=== PATIENT | male | born 1960 | race Caucasian/White ===

== ENCOUNTER → 2018-12-09 15:37 | Outpatient (CLI) | payer OTHER, SELFPAY ==
[2016-10-01 08:07] VITALS: BMI 32.1
--- NOTE | 2018-12-09 | COLBX_PTH ---
PATIENT: RICHARD LI LOC: [facility] U#:[id number] AGE/SX: 65/M ROOM: RE12/09/[address]: Dr. Trevor London MD : 1960 BED: DIS: SPEC #: [id number] RECD: 12/09/18 15:32 STATUS: WILD DESIREE #: [id number] HEMA: 12/09/18 00:[address]: Trevor London DEPT: SURGICAL PATHOLOGY RECD BY: Taj Michelle ENTERED: 12/12/18 13:51 SP TYPE: COLON BX OTHR DR: Dr. Mason Lunsford MD Tissues: A - Sigmoid colon biopsy B - Transverse colon Procedures: Surgery Specimen Level IV HEADER OPERATION: Colonoscopy with biopsy and polypectomy PRE-OP DIAGNOSIS: Screening / polyp TISSUE SUBMITTED: A - Distal sigmoid polyp, rule out adenoma, B - Transverse colon polyp, rule out adenoma MICROSCOPIC DIAGNOSIS A. Distal sigmoid colon polyp, biopsy: Tubular adenoma. B. Transverse colon polyp, biopsy: Tubular adenoma. AM:gavin 12/13/18 MICROSCOPIC DESCRIPTION Slides are reviewed. GROSS DESCRIPTION A - Received in fixative is one container labeled with the patient's name and designated distal sigmoid polyp. The specimen consists of multiple irregular fragments of navas soft tissue mixed with fecal material that in aggregate measure 1 x 0.2 x 0.1 cm. The specimen is totally submitted in one cassette. B - Received in fixative is one container labeled with the patient's name and designated transverse colon polyp. The specimen consists of multiple irregular fragments of light navas soft tissue that in aggregate measure 0.5 x 0.5 x 0.1 cm. The specimen is totally submitted in one cassette. / SJ:gavin 12/12/18 TC:5 CPT: 90947 x2
== END ==
PROVIDERS: Family Provider Family Medicine; PCP Family Medicine; Referring Provider Internal Medicine Gastroenterology; Visit Provider Internal Medicine Gastroenterology
DX: Z12.11 Encounter for screening for malignant neoplasm of colon (principal); K63.5 Polyp of colon
CPT/HCPCS: 88305

== ENCOUNTER → 2021-03-03 12:09 | Outpatient (CLI) | payer OTHER, SELFPAY ==
[2021-03-03 15:40] LABS: ALB/GLOB Ratio 1.1 RATIO (0.9-2.4); AST(SGOT) 27 U/L (15-37); Alanine Aminotransfer ALT/SGPT 39 U/L (16-61); Albumin, Serum 3.8 g/dL (3.2-5.0); Alkaline Phosphatase 80 U/L (45-117); Anion Gap 6 (5-15); BUN 13 mg/dL (7-18); BUN/Creat Ratio 14.4 RATIO (10-20); Chloride 107 mmol/L (98-107); Cholesterol 217 mg/dL (200); EST Glomerular Filtration Rate 91 mL/min (>60); Est Glom Filt Rate - Afr Amer 110 mL/min (>60); Globulin 3.4 g/dL (2.2-4.2); Glucose 113 mg/dL (74-106); High Density Lipoprotein 68 mg/dL; Potassium 4.5 mmol/L (3.5-5.1); Protein, Total 7.2 g/dL (6.4-8.2); Sodium Level 138 mmol/L (136-145); Triglycerides 120 mg/dL; Very Low Density Lipoprotein 24 mg/dL (5-40)
== END ==
PROVIDERS: PCP Family Medicine; Visit Provider Family Medicine
DX: I10 Essential (primary) hypertension (principal); R73.02 Impaired glucose tolerance (oral); E78.5 Hyperlipidemia, unspecified
CPT/HCPCS: 36415; 80053; 80061; 83036

== ENCOUNTER → 2021-06-09 10:29 | Outpatient (CLI) | payer OTHER, SELFPAY | PROVIDERS: PCP Family Medicine; Referring Provider Family Medicine; Visit Provider Family Medicine | DX: M10.9 Gout, unspecified (principal) | CPT/HCPCS: 36415; 84550 ==

== ENCOUNTER → 2021-08-27 12:14 | Outpatient (CLI) | payer OTHER, SELFPAY ==
[2021-08-27 15:33] LABS: Absolute Lymphocyte Count 1.52 X10^3/uL (0.83-4.51); Absolute Neutrophil Count 2.9 X10^3/uL (2.0-7.7); Basophil# 0.03 X10^3/uL; Basophil% 0.6 % (0-1); Eosinophil# 0.09 X10^3/uL; Eosinophils% 1.8 % (0-5); Hematocrit 39.4 % (40-54); Lymphocyte # 1.52 X10^3/ul (0.83-4.51); Lymphocyte % 29.9 % (19-41); Mean Corpuscular Hgb 31.4 pg (27.0-32.0); Mean Corpuscular Volume 95.2 fL (80-94); Mean Platelet Vol. 8.9 fl (6.2-12.0); Monocyte# 0.54 X10^3/uL; Monocyte% 10.6 % (0-10); NRBC Flagged by Analyzer 0 % (0-5); Neutrophil # 2.87 X10^3/uL (2.7-7.7); Neutrophil % 56.3 % (47-70); Platelet Count 271 K/mm3 (150-450); RBC Distribution Width CV 12.3 % (11.6-14.6); RBC Distribution Width SD 43.1 fl (35.1-43.9); Red Blood Count 4.14 M/mm3 (4.6-6.2); White Blood Count 5.1 K/mm3 (4.4-11.0)
[2021-08-27 15:47] LABS: ALB/GLOB Ratio 1.1 RATIO (0.9-2.4); AST(SGOT) 26 U/L (15-37); Alanine Aminotransfer ALT/SGPT 45 U/L (16-61); Albumin, Serum 3.7 g/dL (3.2-5.0); Alkaline Phosphatase 79 U/L (45-117); Anion Gap 4 (5-15); BUN 14 mg/dL (7-18); BUN/Creat Ratio 17.3 RATIO (10-20); Chloride 104 mmol/L (98-107); Cholesterol 214 mg/dL (200); Creatinine, Serum 0.81 mg/dL (0.70-1.30); EST Glomerular Filtration Rate 103 mL/min (>60); Est Glom Filt Rate - Afr Amer 125 mL/min (>60); Globulin 3.5 g/dL (2.2-4.2); Glucose 108 mg/dL (74-106); High Density Lipoprotein 58 mg/dL; PSA,Total - Annual Screen 3.07 ng/mL (0.00-4.00); Protein, Total 7.2 g/dL (6.4-8.2); Sodium Level 136 mmol/L (136-145); Triglycerides 153 mg/dL; Uric Acid 6.3 mg/dL (3.5-7.2); Very Low Density Lipoprotein 31 mg/dL (5-40)
[2021-08-27 17:05] LABS: Hemoglobin A1c 5.8 % (3.8-5.6)
== END ==
PROVIDERS: PCP Family Medicine; Referring Provider Family Medicine; Visit Provider Family Medicine
DX: Z00.00 Encounter for general adult medical examination without abnormal findings (principal); M10.9 Gout, unspecified; I10 Essential (primary) hypertension; E78.5 Hyperlipidemia, unspecified; R73.02 Impaired glucose tolerance (oral); Z12.5 Encounter for screening for malignant neoplasm of prostate
CPT/HCPCS: 36415; 80053; 80061; 83036; 84153; 84550; 85025; G0103

== ENCOUNTER → 2024-03-29 | Outpatient (CLI) | payer OTHER, SELFPAY ==
[2024-03-29 15:38] LABS: Absolute Lymphocyte Count 1.93 X10^3/uL (0.83-4.51); Absolute Neutrophil Count 2.2 X10^3/uL (2.0-7.7); Basophil# 0.04 X10^3/uL; Basophil% 0.8 % (0-1); Eosinophil# 0.14 X10^3/uL; Eosinophils% 2.9 % (0-5); Hematocrit 42.6 % (40-54); Hemoglobin 13.7 g/dL (13.0-16.5); Lymphocyte # 1.93 X10^3/ul (0.83-4.51); Lymphocyte % 39.3 % (19-41); Mean Corp Hgb Conc 32.2 g/dL (32-36); Mean Corpuscular Hgb 31.3 pg (27.0-32.0); Mean Corpuscular Volume 97.3 fL (80-94); Monocyte# 0.58 X10^3/uL; Monocyte% 11.8 % (0-10); NRBC Flagged by Analyzer 0 % (0-5); Neutrophil # 2.19 X10^3/uL (2.7-7.7); Neutrophil % 44.6 % (47-70); Platelet Count 252 K/mm3 (150-450); RBC Distribution Width CV 12.3 % (11.6-14.6); RBC Distribution Width SD 44.5 fl (35.1-43.9); Red Blood Count 4.38 M/mm3 (4.6-6.2); White Blood Count 4.9 K/mm3 (4.4-11.0)
[2024-03-29 16:36] LABS: Cholesterol 275 mg/dL (200); High Density Lipoprotein 51 mg/dL; PSA,Total - Annual Screen 2.43 ng/mL (0.00-4.00); Triglycerides 235 mg/dL; Very Low Density Lipoprotein 47 mg/dL (5-40)
== END | disposition home or self-care (01) ==
LOC: MTLAB 11:34
PROVIDERS: PCP Family Medicine; Referring Provider Family Medicine; Visit Provider Family Medicine
DX: Z12.11 Encounter for screening for malignant neoplasm of colon (principal); I10 Essential (primary) hypertension; E78.00 Pure hypercholesterolemia, unspecified; Z13.0 Encounter for screening for diseases of the blood and blood-forming organs and certain disorders involving the immune mechanism; Z12.5 Encounter for screening for malignant neoplasm of prostate
CPT/HCPCS: 36415; 80061; 84153; 85025; G0103

== ENCOUNTER 2025-02-14 20:21 | Observation (INO) | payer OTHER, SELFPAY ==
[2025-02-14] VITALS (8 sets, daily range): BP systolic 136–191; BP diastolic 71–99; PULSE 71–86; RESP 16–18; TEMP 36.6–36.7; O2SAT 94–99; BMI 33.8; BMI 34.4
--- NOTE | 2025-02-14 20:26 | CT_ITS ---
PROCEDURE: STROKE BRAIN/HEAD WITHOUT CONT 02/14/2025 REASON FOR EXAM: NEURO DEFICIT, ACUTE, STROKE SUSPECTED TECHNIQUE: Head CT without intravenous contrast. Coronal and Sagittal reconstruction series were provided. One or more dose reduction techniques were used (e.g., Automated exposure control, adjustment of the mA and/or kV according to patient size, use of iterative reconstruction technique. COMPARISON: None FINDINGS: * ACUTE: No acute infarct or hemorrhage. No mass effect or herniation. * BRAIN PARENCHYMA: Signal intensities are within normal limits for age. * VENTRICLES/EXTRA-AXIAL SPACES: No hydrocephalus or extra-axial fluid collections. * EXTRACRANIAL STRUCTURES: Visualized osseous structures are normal. Soft tissues are normal. Left maxillary sinus mucous retention cyst. Mild paranasal sinus mucosal thickening. CT/STROKE Brain/Head without Cont IMPRESSION: No acute intracranial abnormality. Reading [facility]
--- NOTE | 2025-02-14 20:26 | EKG12_ITS ---
Test Reason : NEURO Blood Pressure : */* mmHG Vent. Rate : 75 BPM Atrial Rate : 75 BPM P-R Int : 154 ms QRS Dur : 104 ms QT Int : 396 ms P-R-T Axes : 45 -20 18 degrees QTcB Int : 442 ms Normal sinus rhythm Moderate voltage criteria for LVH, may be normal variant ( R in aVL , Cromwell product ) Borderline ECG Confirmed by Ludwig Sanford ([id number]), make up editor NAOMI KOEHLER ([id number]) on 02/16/2025 12:15:09 PM Referred By: Confirmed By: Ludwig Sanford
--- NOTE | 2025-02-14 20:42 | CT_ITS ---
PROCEDURE: STROKE CTA HEAD AND NECK W/CON 02/14/2025 REASON FOR EXAM: NEURO DEFICIT, ACUTE, STROKE SUSPECTED TECHNIQUE: CTA imaging of the head and neck from the aortic arch to the skull vertex with out contrast and with intravenous contrast. Multiplanar and multisequence images were obtained. CONTRAST: Omnipaque 350 VOLUME: 100 mL Not Provided Gauge IV One or more dose reduction techniques were used (e.g., Automated exposure control, adjustment of the mA and/or kV according to patient size, use of iterative reconstruction technique). COMPARISON: None FINDINGS: Aortic Arch: Normal size and branching pattern. No significant atherosclerotic plaque. Brachiocephalic and Subclavians: Mild atherosclerotic plaque without significant stenosis. RIGHT Carotid: Right CCA: Unremarkable. Right ICA: Mild calcified and soft plaque. Maximum stenosis (NASCET): <10 % Right ECA: Unremarkable. LEFT Carotid: Left CCA: Unremarkable. Left ICA: Mild calcified and soft plaque. Maximum stenosis (NASCET): <10 % Left ECA: Unremarkable. Vertebrals: Codominant. Arise from the subclavians. Both vertebrals form the basilar. There appears to be a connection between the left supraclinoid ICA and basilar artery (series 4, image 428), compatible with a persistent trigeminal artery. RIGHT Vertebral: Unremarkable. LEFT Vertebral: Unremarkable. Anatomy: [place] of [place] anatomy is normal. Aneurysm or avm: No intracranial aneurysms or large vascular malformations are identified. Anterior cerebral arteries: Unremarkable: Middle cerebral arteries: Mild atherosclerotic calcification of the carotid siphons, without hemodynamically significant stenosis. Basilar artery: Unremarkable. Posterior cerebral arteries: Unremarkable. Other major branches of the posterior circulation: Unremarkable. Major venous structures: Unremarkable. Other findings: Neck: No lymphadenopathy. Lungs: Lung apices are clear. Bones: Mild degenerative changes of the cervical spine. CT/STROKE CTA Head AND Neck W/Con IMPRESSION: Scattered atherosclerotic calcification without hemodynamically significant socrates nosis. No evidence of acute occlusion or thrombosis. 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 Reading Location: [facility]
[2025-02-14 20:57] LABS: Absolute Lymphocyte Count 2.09 X10^3/uL (0.83-4.51); Absolute Neutrophil Count 2.7 X10^3/uL (2.0-7.7); Basophil# 0.04 X10^3/uL; Basophil% 0.7 % (0-1); Eosinophil# 0.12 X10^3/uL; Eosinophils% 2.1 % (0-5); Hematocrit 42.2 % (40-54); Hemoglobin 14.5 g/dL (13.0-16.5); Lymphocyte # 2.09 X10^3/ul (0.83-4.51); Lymphocyte % 37.3 % (19-41); Mean Corp Hgb Conc 34.4 g/dL (32-36); Mean Corpuscular Hgb 32.2 pg (27.0-32.0); Mean Corpuscular Volume 93.8 fL (80-94); Mean Platelet Vol. 8.4 fl (6.2-12.0); Monocyte# 0.58 X10^3/uL; Monocyte% 10.4 % (0-10); NRBC Flagged by Analyzer 0 % (0-5); Neutrophil # 2.73 X10^3/uL (2.7-7.7); Neutrophil % 48.8 % (47-70); Platelet Count 277 K/mm3 (150-450); RBC Distribution Width CV 12.5 % (11.6-14.6); RBC Distribution Width SD 43.1 fl (35.1-43.9); White Blood Count 5.6 K/mm3 (4.4-11.0)
[2025-02-14 21:06] LABS: International Normalized Ratio 0.9; Partial Thromboplast Time 24.3 Seconds (24.1-36.2); Prothrombin Time (Protime)PT. 12.3 SECONDS (11.7-14.9)
--- NOTE | 2025-02-14 21:10 | ED.VIS.STROK ---
HPI History of Present Illness Chief Complaint: Neuro S/Sx Detail of Chief Complaint: Left face and left hand paresthesias Informant: patient Narrative Narrative: Patient presents with left face and left hand paresthesias. Symptoms started approximately noon with numbness and tingling to the left side of his face. Patient was in [place] and remembers getting gas and added an additive to the gas and then put a mint in his mouth but is not sure if that had anything to do with it. 2 hours later he developed some numbness and tingling in his fingertips of his left hand. He denies difficulty with speech or vision. He denies weakness. He actually drove home. Patient states that he developed an upper respiratory infection a week ago and continues to have a slight cough. Denies significant headache. Denies head injuries. He is not anticoagulated. [facility] Medical History Gout Knee pain Hypertension Home Medications ?Medication ?Instructions ?Recorded ?Last Taken ?Type rosuvastatin 20 mg tablet (Crestor) 20 mg PO DAILY 09/22/16 Unknown History amlodipine 5 mg tablet 5 mg PO QDAY 07/07/24 Unknown History olmesartan 20 mg tablet 20 mg PO QDAY 07/07/24 Unknown History allopurinol 100 mg tablet 100 mg PO QDAY 11/01/24 Unknown History etodolac 500 mg tablet 500 mg PO BID #40 tabs 11/01/24 Unknown Rx Allergy/AdvReac Type Severity Reaction Status Date / Time No Known Allergies Allergy Verified 02/14/25 20:24 Surgical History History of hernia surgery Social History Smoking Status: Never smoker alcohol intake: current ROS ROS ED Review of Systems ROS Unobtainable: other Constitutional Constitutional ED: Reports lethargy; Denies chills, fever(s), sweats or weight loss Eyes Eyes: Denies blurry vision, change in vision or diplopia ENT ENT ED: Denies rhinorrhea or sore throat Cardiovascular Cardiovascular: Denies chest pain, orthopnea or racing heartbeat Respiratory/Chest Respiratory/Chest: Denies cough, dyspnea, dyspnea on exertion, orthopnea or sputum Gastrointestinal Gastrointestinal: Denies abdominal pain, diarrhea, nausea or vomiting Genitourinary Genitourinary ED: Denies dysuria, hematuria or urinary frequency Musculoskeletal Musculoskeletal: Denies arthralgias, back pain, myalgias or neck pain Integumentary Denies abscess, Abrasions or rash Neurologic Neurologic: Reports paresthesias; Denies headache(s) or weakness Psychiatric Psychiatric: Denies anxiety, depression or suicidal thoughts Endocrine Endocrinology: Denies polydipsia, polyphagia or polyuria Hematologic/Lymphatic Hematologic/Lymphatic: Denies easy bleeding, easy bruising or lymphadenopathy Allergic/Immunologic Allergic/Immunologic ED: Denies mouth swelling, tongue swelling or urticaria EXAM Physical Exam Const Vital Signs: 02/14/25 20:22 02/14/25 20:32 02/14/25 20:32 Temperature 98.0 F Temperature Source Temporal Pulse Rate 81 79 Respiratory Rate 18 16 Blood Pressure 191/89 H 185/93 H Blood Pressure Mean 123 123 Pulse Ox 97 95 Oxygen Delivery Method Room Air Room Air Room Air 02/14/25 20:32 02/14/25 21:05 Temperature Temperature Source Pulse Rate 81 86 Respiratory Rate 16 18 Blood Pressure 185/93 H 167/99 H Blood Pressure Mean 123 121 Pulse Ox 94 98 Oxygen Delivery Method Room Air Room Air Positive well nourished and well developed General Appearance ED: well developed and NAD HEENT Reports TM's clear and moist mucous membranes normocephalic and atraumatic; Negative for trauma or tenderness Tympanic Membrane ED: Yes TM's clear Eyes PERRL and EOMs intact bilaterally General Eye ED: Negative for pale conjunctiva or scleral icterus Neck no lymphadenopathy, supple and no JVD General: Negative for tenderness Chest Wall inspection of chest normal and palpation of chest normal Chest: Negative for tenderness Resp normal respiratory effort and clear to auscultation bilaterally Effort and Inspection: Negative for respiratory distress or pain with movement Auscultation: Negative for rhonchi, wheezes or diminished lung sounds Cardio regular rate, regular rhythm, S1 normal heart sound, S2 normal heart sound and no murmurs Peripheral Pulses: pulses 2+ throughout GI normal to inspection, nondistended, normoactive bowel sounds, soft to palpation, non-tender, non-distended and no masses Back/Spine no CVA tenderness and no thoracic nor lumbar tenderness Extremity normal to inspection General Extremety ED: Negative for edema General Extremity: Negative for edema Neuro oriented x3, CN's II-XII intact bilaterally, no sensory deficits noted and gait normal Neuro Narrative: Finger-nose and heel nicole testing within normal limits, negative Romberg, negative pronator drift, fundi benign. NIH stroke scale is a 1 for some slightly decreased in station to the left side of the face compared to the right. No other deficits noted. There was no facial droop. Sensorium / Orientation: awake, alert, oriented to person, oriented to place and oriented to time Motor Exam: strength 5/5 throughout and strength abnormal Psych mental status grossly normal Skin no rashes or lesions noted and no wounds MDM MDM MDM Narrative Medical decision making narrative: Patient presents with paresthesias to the left side of his face and left hand fingertips with symptoms that started at noon today. He is not a thrombolytic candidate given symptoms starting more than 8 hours ago. Will perform stroke workup including CT brain as well as CTA of head and neck. CBC with differential regular 5.6 with hemoglobin 14.5 and platelet count of 277. EKG obtained showed sinus rhythm with ventricular rate of [address] scan of the brain without contrast unremarkable. CTA head and neck unremarkable. CBC with differential showed a white count of 5.6 hemoglobin 14.5 and platelet count of 277. Chemistries unremarkable. Troponin normal at 15. EKG obtained arrival shows sinus rhythm with rate of 75 bpm with LVH. Case will be discussed with hospitalist to evaluate patient for admission. In the differential would be Robles's palsy versus stroke although given involvement of the left hand and the face need to rule out stroke. Lab Data Attestation: I reviewed the patient's lab results. Labs: Laboratory Results - last 24 hr 02/14/25 20:35 WBC 5.6 RBC 4.50 L Hgb 14.5 Hct 42.2 MCV 93.8 MCH 32.2 H MCHC 34.4 RDW Std Deviation 43.1 RDW Coeff of Jaguar 12.5 Plt Count 277 MPV 8.4 Immature Gran % (Auto) 0.700 Neut % (Auto) 48.8 Lymph % (Auto) 37.3 Caroline % (Auto) 10.4 H Eos % (Auto) 2.1 Baso % (Auto) 0.7 Absolute Neuts (auto) 2.7 Absolute Lymphs (auto) 2.09 Nucleated RBC % 0 PT 12.3 INR 0.9 APTT 24.3 Sodium 140 Potassium 3.8 Chloride 103 Carbon Dioxide 22.5 Anion Gap 15 BUN 9 Creatinine 0.77 Estim Creat Clear Calc 127.11 Est GFR (MDRD) Non-Af 100 BUN/Creatinine Ratio 11.4 Glucose 105 H Calcium 9.7 Troponin T High Sens 15 Radiography Diagnostic Testing: Clinical Impression(s) from Imaging Studies Brain CT 02/14/25 20:26 IMPRESSION: No acute intracranial abnormality. Reading Location: [facility] Head/Neck CTA 02/14/25 20:42 IMPRESSION: Scattered atherosclerotic calcification without hemodynamically significant stenosis. No evidence of acute occlusion or thrombosis. 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 Reading Location: [facility] EKG Initial EKG: Attestation: I personally reviewed and interpreted this EKG as follows: Comments: Sinus rhythm with ventricular rate 75 bpm with LVH Discharge Plan Dx/Rx/DC Orders Clinical Impression: Paresthesias Disposition Disposition: Acute Care Hospital [facility]
[2025-02-14 21:23] LABS: Anion Gap 15 (5-15); BUN 9 mg/dL (4-19); BUN/Creat Ratio 11.4 RATIO (10-20); Calcium,Total 9.7 mg/dL (7.6-11.0); Carbon Dioxide 22.5 mmol/L (21.0-32.0); Chloride 103 mmol/L (98-108); Creatinine, Serum 0.77 mg/dL (0.70-1.20); EST Glomerular Filtration Rate 100 (>60); Estimated Creatinine Clearance 127.11 ml/min (50-250); Glucose 105 mg/dL (70-99); Potassium 3.8 mmol/L (3.3-5.1); Sodium Level 140 mmol/L (133-145); Troponin T High Sensitivity 15 ng/L (<=22)
--- NOTE | 2025-02-14 22:41 | PCM.HP.STD ---
[facility] - General General Date of Admission: 02/14/25 Date of Service: 02/14/25 Chief Complaint: Paresthesias of the Left Hand and Face. [facility] Narrative RICHARD CORRALES, is a 64 M with a past medical history of essential hypertension; on amlodipine and olmesartan, hyperlipidemia; on rosuvastatin, obesity; with BMI of 34.5 this admission, history of hernia surgery, history of skin cancer affecting the neck and eyelid, history of gout; on allopurinol, OA; with chronic knee pain on etodolac and recent viral URI ~1 week ago; with mild residual nonproductive cough who presents to [facility] ER complaining of paresthesias of the Left hand and face. Mr. Corrales reports his symptoms began at approximately noon today with the abrupt-onset of paresthesias of his Left hand that was about 8 hours prior to his arrival. The patient stated he was in [place] and remembers getting gas and then ~2 hours later he began developing numbness and tingling in the fingertips of his Left hand. He denies associated headache, recent head injury, difficulty with speech, visual changes or focal neurologic weakness so he drove himself home without incident. He admits to lethargy and paresthesias in the Left hand and face. He denies associated fever, chills, changes in vision, runny nose, sore throat, chest pain, palpitations, heart racing, lower extremity edema, shortness of breath, cough, abdominal pain, nausea, vomiting, diarrhea, dysuria, hematuria, arthralgias, headache or rash. 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 [facility] Medical History Gout Knee pain Hypertension Home Medications ?Medication ?Instructions ?Recorded ?Last Taken ?Type rosuvastatin 20 mg tablet (Crestor) 20 mg PO DAILY 09/22/16 Unknown History amlodipine 5 mg tablet 5 mg PO QDAY 07/07/24 Unknown History olmesartan 20 mg tablet 20 mg PO QDAY 07/07/24 Unknown History allopurinol 100 mg tablet 100 mg PO Q12H 11/01/24 Unknown History Allergy/AdvReac Type Severity Reaction Status Date / Time No Known Allergies Allergy Verified 02/14/25 20:24 Surgical History History of hernia surgery Social History Smoking Status: Never smoker alcohol intake: current ROS ROS Narrative Review of Systems: Constitutional: Patient admits to lethargy but he denies fever or chills. Eyes: Patient denies changes in vision or discharge from eyes. ENT: Patient denies runny nose, sore throat or ear pain. Resp: Patient denies shortness of breath or cough. CV: Patient denies chest pain, palpitations, heart racing or lower extremity edema. GI: Patient denies abdominal pain, nausea, vomiting, diarrhea or constipation. : Patient denies dysuria, hematuria or urinary frequency. MSK: Patient denies arthralgias or myalgias. Skin: Patient denies rash, abscess, jaundice. Psych: Patient denies symptoms of uncontrolled depression or anxiety. Neuro: Patient admits to paresthesias in the Left face and hand as per HPI. He denies focal neurologic weakness. Allergy: Patient denies swelling, tongue swelling or urticaria. Hematology: Patient denies easy bleeding or easy bruisability. Endocrinology: Patient denies polyuria, polydipsia, polyphagia or heat/cold intolerance. 14 point ROS otherwise negative except for positives noted above in HPI. Vital Signs Vital Signs Vital Signs: 02/14/25 20:22 02/14/25 20:32 02/14/25 20:32 Temperature 98.0 F Temperature Source Temporal Pulse Rate 81 79 Respiratory Rate 18 16 Blood Pressure 191/89 H 185/93 H Blood Pressure Mean 123 123 Pulse Ox 97 95 Oxygen Delivery Method Room Air Room Air Room Air 02/14/25 20:32 02/14/25 21:05 Temperature Temperature Source Pulse Rate 81 86 Respiratory Rate 16 18 Blood Pressure 185/93 H 167/99 H Blood Pressure Mean 123 121 Pulse Ox 94 98 Oxygen Delivery Method Room Air Room Air Weight Weight: 254 lb 6.615 oz Body Mass Index (BMI) 34.4 Physical Exam Const alert, oriented x3, no apparent distress and healthy appearing Constitutional Narrative: Obese. General Appearance: cooperative HEENT normocephalic, head/scalp atraumatic, hearing grossly normal bilaterally and moist oral mucous membranes Eyes PERRL, EOMs intact bilaterally and conjunctivae normal Neck no lymphadenopathy, supple and no JVD Resp normal respiratory effort, no retractions, no use of accessory muscles and clear to auscultation bilaterally Cardio regular rate and regular rhythm GI normal to inspection, nondistended, normoactive bowel sounds, soft to palpation, non-tender and non-distended Extremity normal to inspection, full ROM and no clubbing, cyanosis or edema Skin Skin Narrative: Patient has evidence of rash, abscess, wounds or jaundice. Neuro oriented x3, CN's II-XII intact bilaterally, moves all extremities and no focal motor deficits Neuro Narrative: Patient has mildly decreased sensation on the Left side of the face compared to the Right with no other focal neurologic deficits noted at this time. Sensorium / Orientation: awake, alert, oriented to person, oriented to place and oriented to time Speech: speech normal Psych affect normal Results Medical Records Data Attestation: I reviewed the patient's medical records Lab / Micro Data Attestation: I reviewed the patient's lab results. 02/14/25 20:35 02/14/25 20:35 Labs: Laboratory Results - last 24 hr 02/14/25 20:35: WBC 5.6, RBC 4.50 L, Hgb 14.5, Hct 42.2, MCV 93.8, MCH 32.2 H, MCHC 34.4, RDW Std Deviation 43.1, RDW Coeff of Jaguar 12.5, Plt Count 277, MPV 8.4, Immature Gran % (Auto) 0.700, Neut % (Auto) 48.8, Lymph % (Auto) 37.3, Villalba % (Auto) 10.4 H, Eos % (Auto) 2.1, Baso % (Auto) 0.7, Absolute Neuts (auto) 2.7, Absolute Lymphs (auto) 2.09, Nucleated RBC % 0, PT 12.3, INR 0.9, APTT 24.3, Sodium 140, Potassium 3.8, Chloride 103, Carbon Dioxide 22.5, Anion Gap 15, BUN 9, Creatinine 0.77, Estim Creat Clear Calc 127.11, Est GFR (MDRD) Non-Af 100, BUN/Creatinine Ratio 11.4, Glucose 105 H, Calcium 9.7, Troponin T High Sens 15 Imaging Radiology Impression Brain CT 02/14/25 20:26 IMPRESSION: No acute intracranial abnormality. Reading Location: [facility] Head/Neck CTA 02/14/25 20:42 IMPRESSION: Scattered atherosclerotic calcification without hemodynamically significant stenosis. No evidence of acute occlusion or thrombosis. 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 Reading Location: [facility] Assessment & Plan Assessment/Plan (1) Hypertensive emergency: (2) Paresthesias: (3) Obesity (BMI 30.0-34.9): (4) Essential hypertension: PLAN: Plan 1. Elevated blood pressure of 191/89 mmHg present on admission consistent with suspected Hypertensive Emergency with Paresthesias of Left Face and Hand - Admit to PCU under observation status. Check MRI of brain without contrast to evaluate for possible CVA. Check carotid Doppler to evaluate for stenosis. Check echocardiogram to evaluate LVEF. Continue statin and start aspirin daily. Check TSH, B12, folate, hemoglobin A1c, KATHRINE and UDS to evaluate for other potential factors that may be contributing to his symptoms. 2. Obesity; with BMI of 34.5 this admission complicating #1 - Weight loss will be recommended. Check TSH. This complicates his case and may hamper recovery. 3. Essential hypertension; on amlodipine and olmesartan compounding #1 & #2 - Hold scheduled antihypertensives until CVA definitively ruled out on MRI. 4. Recent viral URI ~1 week ago; with mild residual nonproductive cough - Noted. 5. Hyperlipidemia; on rosuvastatin - Resume statin and check lipid profile. 6. History of hernia surgery - Noted. 7. History of skin cancer affecting the neck and eyelid - Noted for the sake of completeness. 8. History of gout; on allopurinol - Stable with no evidence of acute flare at this time. Maintain allopurinol as previous. 9. OA; with chronic knee pain on etodolac - Stable. 10. DVT prophylaxis - Heparin 5,000U sq BID plus SCD's. Total time: Approximately (but not less than) 70 minutes. Charges/Coding Visit Charges OBSV E&M: 30631 Observ/hosp same date L2
--- NOTE | 2025-02-14 22:56 | ECHOCS_ITS ---
Reason For Study Reason For Study: TIA/CVA Procedure This was a 2D Doppler, Color Flow transthoracic echocardiogram. The study was technically difficult. Contrast injection was performed. Exam performed portable in patient room. Left Ventricle Normal size and thickness. The LV systolic function is normal. EF is 65 %. Normal diastololic function. Right Ventricle Normal right ventricle. Atria The left atrium is mildly enlarged. Normal right atrium. Bubble contrast study is negative for PFO/ASD. Mitral Valve Trivial mitral valve insufficiency. Tricuspid Valve Trivial tricuspid valve insufficiency. Unable to estimate RV systolic pressure due to insufficient tricuspid regurgitant envelope. Aortic Valve Trisinus/trileaflet aortic valve. Pulmonic Valve The pulmonic valve is not well visualized. Great Vessels Normal sized aortic root. Pericardium/Pleural No pericardial effusion. Medication Diluted definity 2ml given slow IV push to enhance endocardial definition. Performed a rapid injection of agitated mix of 9 cc saline and 1cc air to assess for atrial septal defect. MMode/2D Measurements & Calculations LVIDd: 5.5 cm IVSd: 1.1 cm Ao root diam: 3.4 cm LVIDs: 3.6 cm LVPWd: 1.1 cm RVDd: 4.1 cm FS: 34.7 % LAV(MOD-bp): 64.5 ml LVAd ap4: 43.0 cm2 SV(MOD-sp4): 101.0 ml LAV(MOD-bp) Indexed: 27.5 ml/m2 LVLd ap4: 9.1 cm SI(MOD-sp4): 43.1 ml/m2 LAV(MOD-sp2): 67.9 ml EDV(MOD-sp4): 167.2 ml LAV(MOD-sp4): 60.9 ml EDV(sp4-el): 172.3 ml LVAs ap4: 25.4 cm2 LVLs ap4: 7.8 cm ESV(MOD-sp4): 66.2 ml ESV(sp4-el): 70.5 ml EF(MOD-sp4): 60.4 % EF(sp4-el): 59.1 % SV(sp4-el): 101.9 ml LA A4 area: 20.5 cm2 LA dimension(2D): 4.3 cm RA A4 area: 16.2 cm2 TAPSE: 2.7 cm Time Measurements MV dec time: 0.23 sec Doppler Measurements & Calculations MV E max shelton: 84.0 cm/sec Lat Peak E' Shelton: 8.6 cm/sec Med Peak E' Shelton: 8.9 cm/sec MV A max shelton: 82.8 cm/sec E/E' lat: 9.7 E/E' med: 9.4 MV E/A: 1.0 MV V2 max: 102.2 cm/sec MV P1/2t max shelton: 87.1 cm/sec Ao V2 max: 137.7 cm/sec MV max P.2 mmHg MV P1/2t: 77.4 msec Ao max P.6 mmHg MV V2 mean: 52.3 cm/sec MV dec slope: 329.8 cm/sec2 Ao V2 mean: 96.0 cm/sec MV mean P.3 mmHg MVA(P1/2t): 2.8 cm2 Ao mean P.3 mmHg MV V2 VTI: 35.4 cm Ao V2 VTI: 29.1 cm AV (velocity ratio): 0.78 LV V1 max: 95.8 cm/sec MR max shelton: 559.1 cm/sec PA V2 max: 120.4 cm/sec LV V1 max P.7 mmHg MR max P.0 mmHg PA V2 mean: 81.1 cm/sec LV V1 mean P.1 mmHg LV V1 mean: 66.8 cm/sec LV V1 VTI: 22.8 cm ECHO/Echo Complete W/ Contrast Interpretation Summary The LV systolic function is normal. EF is 65 %. The left atrium is mildly enlarged. Bubble contrast study is negative for PFO/ASD. Ordering Physician: Sebastian Maay Performed By: Jony Trejo RCS
--- NOTE | 2025-02-14 22:56 | CDU_ITS ---
Reason For Study Reason For Study: One Sided Facial Numbness Rt. Velocities/BP Lt. Velocities/BP Prox CCA 92.8/14.2 cm/sec. Prox CCA 101.6/17.5 cm/sec. Mid CCA 91.6/8.1 cm/sec. Mid CCA 89.7/17.1 cm/sec. Dist CCA 83.0/15.5 cm/sec. Dist CCA 66.7/16.6 cm/sec. Prox ICA 70.6/17.3 cm/sec. Prox ICA 65.8/18.5 cm/sec. Mid ICA 94.1/22.8 cm/sec. Mid ICA 78.7/23.0 cm/sec. Dist ICA 83.0/20.4 cm/sec. Dist ICA 118.3/34.9 cm/sec. Rt. ICA/CCA = 1.0. Lt. ICA/CCA = 1.3. Prox ECA 130.8/10.2 cm/sec. Prox ECA 117.7/14.5 cm/sec. Rt. Vert. 49.9/10.6 cm/sec. Lt. Vert. 49.7/9.1 cm/sec. Right Extracranial There is heterogeneous, irregular atherosclerotic plaque noted in the right common carotid artery. There is heterogeneous, irregular atherosclerotic plaque noted in the right internal carotid artery. There is homogeneous, smooth atherosclerotic plaque noted in the right external carotid artery. Antegrade flow is noted in the right vertebral artery. Left Extracranial There is heterogeneous, irregular atherosclerotic plaque noted in the left common carotid artery. There is heterogeneous, irregular atherosclerotic plaque noted in the left internal carotid artery. The distal left internal carotid artery is not well visualized. The left external carotid artery is not well visualized. Antegrade flow is noted in the left vertebral artery. Procedure Carotid Duplex [id number]. This is a Carotid Duplex examination using B-mode, color flow and specral Doppler. The exam was diagnostic. Exam performed portable in patient room. VL/Carotid Duplex Ultrasound Interpretation Summary Mild (<50%) stenosis right extracranial internal carotid. Mild (<50%) stenosis left extracranial internal carotid. Patent and antegrade vertebrals bilaterally. Ordering Physician: Sebastian Maya Referring Physician: N/A Performed By: Jesse Gonzales RVT
[2025-02-14] MEDS: Aspirin 325 MG Tablet PO (23:16)
[2025-02-15 00:04] LABS: Troponin T High Sens 2 HR 15 ng/L (<=22)
[2025-02-15 00:06] LABS: Hemoglobin A1c 5.8 % (<=5.6)
[2025-02-15 00:22] LABS: Alcohol, Blood (Medical)-Serum < 10.1 mg/dL (<=10.0)
[2025-02-15 00:26] VITALS: BP 170/95; PULSE 79; RESP 16; TEMP 36.8; O2SAT 98
[2025-02-15 00:29] VITALS: BMI 33.8
[2025-02-15] MEDS: 0.9% Normal Saline (1000mL) 1,000 ML 50 ML IV (01:03)
[2025-02-15 01:17] LABS: Vitamin B12 476 pg/mL (180-914)
[2025-02-15 02:17] LABS: Troponin T High Sens 4 HR 17 ng/L (<=22)
[2025-02-15 02:18] LABS: Cholesterol 284 mg/dL (<=200); High Density Lipoprotein 47 mg/dL; Low Density Lipoprotein Calc. 201 mg/dL; Triglycerides 177 mg/dL; Very Low Density Lipoprotein 35 mg/dL (5-40); cholesterol:hdl ratio screen 5.99
[2025-02-15 02:23] LABS: Amphetamine Urine NEGATIVE (<1000 ng/mL); Barbiturate Urine NEGATIVE (< 200 ng/mL); Benzodiazepine Urine NEGATIVE (< 200 ng/mL); Buprenorphine Urine NEGATIVE (< 200 ng/mL); Cocaine Urine NEGATIVE (< 300 ng/mL); Fentanyl, Urine NEGATIVE; Methadone Urine NEGATIVE (< 300 ng/mL); Opiates Urine NEGATIVE (< 300 ng/mL); Oxycodone, Urine NEGATIVE (< 100 ng/mL); PCP Urine NEGATIVE (< 25 ng/mL); THC Urine NEGATIVE (< 50 ng/mL)
[2025-02-15 04:25] VITALS: BP 155/84; PULSE 70; RESP 16; TEMP 36.6; O2SAT 98
[2025-02-15 05:00] VITALS: BMI 33.8
--- NOTE | 2025-02-15 06:00 | MRI_ITS ---
PROCEDURE: Noncontrast CT of the brain. 02/15/2025 REASON FOR EXAM: Left hand and face paresthesias TECHNIQUE: Multi planar, multisequence MRI images of the brain were obtained without IV contrast. COMPARISON: Noncontrast CT brain 02/14/2025 FINDINGS: The bones of the calvarium are intact. Included upper cervical spinal cord unremarkable. The orbits, sella, and parasellar structures show no specific abnormality. Mastoid air cells are clear. Extracranial soft tissues grossly unremarkable. There are mucous retention cysts or polyps in the both maxillary sinuses, the largest on the left measuring 2.1 cm. No paranasal sinus air-fluid levels. Mild prominence of the cortical sulci, compatible with mild brain parenchymal atrophy. There is no extra-axial fluid collection or midline shift. Serrano-white matter differentiation is maintained. Major basilar intracranial flow voids are present. Basilar cisterns are clear. No acute abnormality of the posterior fossa is demonstrated. There is a 1 cm area of acute infarction involving the right thalamus. No large territorial infarction. No cerebellopontine angle mass lesion demonstrated. This does demonstrate some increased signal on the FLAIR sequence. There are mild scattered patchy areas of increased T2/FLAIR signal in the deep white matter structures of the cerebral hemispheres. MRI/Brain without Contrast IMPRESSION: Mild brain parenchymal atrophy. 1 cm area of acute infarction involving the ri ght thalamus. This does demonstrate some increased signal on the FLAIR sequence. There are additional small scattered foci of increased T2/FLAIR signal in the d eep white matter structures of the cerebral hemispheres, which may be on the basis of chronic small-vessel ischemic disease . [place] Alert: 1 cm acute infarct right thalamus. The critical information above was relayed directly by me by telephone to the [facility]'s nurse, Silvia, on 02/15/2025 at 11:56 am with readback verification. Reading Location: [facility]
[2025-02-15 08:15] VITALS: BP 183/95; PULSE 73; RESP 17; TEMP 36.8; O2SAT 97
[2025-02-15] MEDS: Allopurinol 100 MG Tablet PO (08:20)
[2025-02-15] MEDS: Heparin Injection (Vial) 5,000 UNIT/ML VIAL 5000 UNIT SC (08:20)
[2025-02-15] MEDS: Aspirin 81 MG TAB.CHEW PO (08:20)
--- NOTE | 2025-02-15 08:30 | PN.HOSP_ITS ---
Reason for Visit Reason for Visit: Diagnoses Obesity, class 1 (02/14/25) Essential (primary) hypertension (02/14/25) Hypertensive emergency (02/14/25) Paresthesia of skin (02/14/25) Subjective Subjective Feels well, still with left face and finger paresthesias. Objective Data Objective Data Vital Signs: Vital Signs Temp Pulse Resp BP Pulse Ox O2 Del Method 36.8 C 73 17 183/95 H 97 Room Air 02/15/25 08:15 02/15/25 08:15 02/15/25 08:15 02/15/25 08:15 02/15/25 08:15 02/15/25 08:15 Oxygen Delivery Method Room Air Weight: 113.3 kg Body Mass Index (BMI) 33.8 Lab / Micro Data 02/14/25 20:35 02/14/25 20:35 Labs: Laboratory Results - last 24 hr 02/14/25 20:35: WBC 5.6, RBC 4.50 L, Hgb 14.5, Hct 42.2, MCV 93.8, MCH 32.2 H, MCHC 34.4, RDW Std Deviation 43.1, RDW Coeff of Jaguar 12.5, Plt Count 277, MPV 8.4, Immature Gran % (Auto) 0.700, Neut % (Auto) 48.8, Lymph % (Auto) 37.3, [place] % (Auto) 10.4 H, Eos % (Auto) 2.1, Baso % (Auto) 0.7, Absolute Neuts (auto) 2.7, Absolute Lymphs (auto) 2.09, Nucleated RBC % 0, PT 12.3, INR 0.9, APTT 24.3, Sodium 140, Potassium 3.8, Chloride 103, Carbon Dioxide 22.5, Anion Gap 15, BUN 9, Creatinine 0.77, Estim Creat Clear Calc 127.11, Est GFR (MDRD) Non-Af 100, BUN/Creatinine Ratio 11.4, Glucose 105 H, Hemoglobin A1c 5.8 H, Calcium 9.7, Troponin T High Sens 15, TSH 2.720 02/14/25 23:24: Troponin T Hi Sens 2 Hr 15, Vitamin B12 476, Serum Folate 25.70, Ethyl Alcohol < 10.1 02/15/25 01:40: Troponin T Hi Sens 4Hr 17, Triglycerides 177, Cholesterol 284 H, LDL Cholesterol, Calc 201, VLDL Cholesterol 35, HDL Cholesterol 47, Cholesterol/HDL Ratio 5.99 02/15/25 01:55: Urine Opiates Screen NEGATIVE, U Buprenorphine Qual NEGATIVE, Ur Oxycodone Screen NEGATIVE, Urine Methadone Screen NEGATIVE, Urine Fentanyl Screen NEGATIVE, Ur Barbiturates Screen NEGATIVE, Ur Phencyclidine Scrn NEGATIVE, Ur Amphetamines Screen NEGATIVE, U Benzodiazepines Scrn NEGATIVE, Urine Cocaine Screen NEGATIVE, U Cannabinoids Screen NEGATIVE Radiography Diagnostic Testing: Radiology Impression Brain CT 02/14/25 20:26 IMPRESSION: No acute intracranial abnormality. Reading Location: [facility] Head/Neck CTA 02/14/25 20:42 IMPRESSION: Scattered atherosclerotic calcification without hemodynamically significant stenosis. No evidence of acute occlusion or thrombosis. 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 Reading Location: [facility] Physical Exam Const alert and no apparent distress HEENT head/scalp atraumatic and moist oral mucous membranes Extremity normal to inspection and no clubbing, cyanosis or edema Neuro no focal motor deficits and no sensory deficits noted Sensorium / Orientation: awake and alert Motor Exam: strength 5/5 throughout Assessment & Plan Assessment/Plan (1) Paresthesias: PLAN: left hand and face onset 1200 on 02/14 CVA work up underway. MRI of the brain showed 1 cm area of acute infarct involving the right thalamus. Patient was seen by [facility] teleneurology recommends 21 days of aspirin and clopidogrel and then aspirin thereafter. Goal LDL 70 or less. LDL here was 201. Patient will be on high intensity statin. Patient advised to follow-up with neurology as outpatient as well. (2) Hypertensive emergency: PLAN: permissive HTN for initially and then to continue with antihypertensive. Likely patient had hypertensive level due to maintaining cerebral perfusion pressure after his stroke. PLAN: Plan VTE prophylaxis: SQ heparin. NIHSS NIHSS Nursing Documentation NIHSS Nursing Documentation: NIHSS: Ischemic Stroke/TIA Start: 02/15/25 00:26 Text: For PCU Patients: NIH and Neuro Check every 4 Status: Active hours, PRN and with change in RN caregiver. Freq: [id number] Protocol: Activity Type Activity Date Activity User E-sign Co-sign Detail Recorded Client Recorded Date Recorded By Document 02/15/25 08:16 [id number] 02/15/25 08:20 02/15/25 08:16 NIH Stroke Scale [NIHSS] A score of 0 is normal or asymptomatic . Total possible score is 42. Inpatient: RN or Physician to activate a stroke alert for onset of new stroke symptoms or with NIHSS increase >/= 3 points. Following change in neurological status, NIHSS will be performed per physician order or more frequently PRN. -1a. Level of Consciousness 0 - Alert; keenly responsive -1b. LOC Questions 0 - Answers BOTH questions correctly -1c. LOC Commands 0 - Performs BOTH tasks correctly -2. Best Gaze 0 - Normal -3. Visual 0 - No visual loss -4. Facial Palsy 0 - Normal symmetrical movements -5a. Left Arm 0 - No drift; arm holds 90 ( or 45) degrees for full 10 seconds -5b. Right Arm 0 - No drift; arm holds 90 ( or 45) degrees for full 10 seconds -6a. Left Leg 0 - No drift; leg holds 30- degree position for full 5 seconds -6b. Right Leg 0 - No drift; leg holds 30- degree position for full 5 seconds -7. Limb Ataxia 0 - Absent -8. Sensory 0 - Normal; no sensory loss -9. Best Language 0 - No aphasia; normal -10. Dysarthria 0 - Normal -11. Extinction and Inattention 0 - No abnormality -Total 0 Query Text:A score of 0 is normal or asymptomatic. Total possible score is 42 . ED: Notify Physician for NIHSS increase by > / = 3 points. Inpatient: RN or Physician to activate a stroke alert for NIHSS increase of > / = 3 points. Coma Scale [Assess] -Eye Opening Spontaneous -Motor Obeys Commands -Verbal Oriented [Total] -Coma Scale Total 15
[2025-02-15 12:15] VITALS: BP 178/91; PULSE 89; RESP 17; TEMP 36.8; O2SAT 97
--- NOTE | 2025-02-15 13:06 | STROKE.CONS ---
Assessment and Plan: Stroke Assessment/Plan RICHARD LI is a 64 M with a history of essential hypertension, hyperlipidemia, obesity, has numbness of left face and arm since yesterday Neurological examination shows non focal examination. Neuroimaging shows CTA: negative, MRI: R thalamic stroke. ECHO = EF 65%, LA mild enlargement. Right thalamic stroke suspect small vessel disease Plan Continue ASA. Add Plavix. DAPT for 21 days then ASA alone HTN: Permissive hypertension acutely and halfway will need it under control HLD: Target LDL 70. Adjust stain to keep LDL in target range Sleep study as out patient PT, OT evaluation Thanks for consultation. Spent 70 min in evaluation and management HPI Consult Data Date of Consult: 02/15/25 HPI Narrative HPI Narrative: RICHARD LI, is a 64 M with a past medical history of essential hypertension, hyperlipidemia, obesity, has numbness of the left hand and face especially at the lips. It started yesterday in the afternoon and is persistent. He denies having weakness, slurred speech. He denies other symptoms. [facility] Medical History Gout Knee pain Hypertension Home Medications ?Medication ?Instructions ?Recorded ?Last Taken ?Type rosuvastatin 20 mg tablet (Crestor) 20 mg PO DAILY 09/22/16 02/13/25 History amlodipine 5 mg tablet 5 mg PO QDAY 07/07/24 02/13/25 History olmesartan 20 mg tablet 20 mg PO QDAY 07/07/24 02/13/25 History allopurinol 100 mg tablet 100 mg PO Q12H 11/01/24 02/13/25 History Allergy/AdvReac Type Severity Reaction Status Date / Time No Known Allergies Allergy Verified 02/15/25 00:45 Surgical History History of hernia surgery Social History Smoking Status: Never smoker alcohol intake: current Vital Signs Vital Signs Vital Signs: 02/14/25 20:22 02/14/25 20:32 02/14/25 20:32 Temperature 98.0 F Temperature Source Temporal Pulse Rate 81 79 Respiratory Rate 18 16 Respiratory Effort Respiratory Depth Respiratory Pattern Blood Pressure 191/89 H 185/93 H Blood Pressure Mean 123 123 Blood Pressure Source Blood Pressure Position Blood Pressure Location Pulse Ox 97 95 Oxygen Delivery Method Room Air Room Air Room Air 02/14/25 20:32 02/14/25 21:05 02/14/25 21:30 Temperature Temperature Source Pulse Rate 81 86 76 Respiratory Rate 16 18 18 Respiratory Effort Respiratory Depth Respiratory Pattern Blood Pressure 185/93 H 167/99 H 136/71 H Blood Pressure Mean 123 121 92 Blood Pressure Source Blood Pressure Position Blood Pressure Location Pulse Ox 94 98 99 Oxygen Delivery Method Room Air Room Air Room Air 02/14/25 22:00 02/14/25 22:30 02/14/25 23:00 Temperature Temperature Source Pulse Rate 71 72 75 Respiratory Rate 18 18 18 Respiratory Effort Respiratory Depth Respiratory Pattern Blood Pressure 168/97 H 168/77 H 172/96 H Blood Pressure Mean 120 107 121 Blood Pressure Source Blood Pressure Position Blood Pressure Location Pulse Ox 99 99 95 Oxygen Delivery Method Room Air Room Air 02/14/25 23:54 02/15/25 00:26 02/15/25 00:26 Temperature 98 F 98.3 F Temperature Source Oral Pulse Rate 75 79 Respiratory Rate 18 16 Respiratory Effort Normal Non-Labored Respiratory Depth Normal Respiratory Pattern Normal Blood Pressure 172/96 H 170/95 H Blood Pressure Mean 121 120 Blood Pressure Source Monitor Blood Pressure Position Semi-Fowlers Blood Pressure Location Right Arm Pulse Ox 97 98 Oxygen Delivery Method Room Air Room Air 02/15/25 04:25 02/15/25 04:25 02/15/25 08:15 Temperature 97.8 F 98.2 F Temperature Source Oral Oral Pulse Rate 70 73 Respiratory Rate 16 17 Respiratory Effort Normal Non-Labored Respiratory Depth Normal Respiratory Pattern Normal Blood Pressure 155/84 H 183/95 H Blood Pressure Mean 107 124 Blood Pressure Source Monitor Monitor Blood Pressure Position Supine Semi-Fowlers Blood Pressure Location Right Arm Right Arm Pulse Ox 98 97 Oxygen Delivery Method Room Air Room Air Room Air 02/15/25 08:43 Temperature Temperature Source Pulse Rate Respiratory Rate Respiratory Effort Respiratory Depth Respiratory Pattern Blood Pressure Blood Pressure Mean Blood Pressure Source Blood Pressure Position Blood Pressure Location Pulse Ox Oxygen Delivery Method Room Air Weight Weight: 113.3 kg Body Mass Index (BMI) 33.8 Physical Exam Const alert, oriented x3 and no apparent distress General Appearance: cooperative and comfortable Neuro Neuro Narrative: Awake, alert oriented X3 No aphasia or dysarthria CN 2-12 intact Power 5/5 Sensation: Intact No ataxia Lab / Micro Data 02/14/25 20:35 02/14/25 20:35 Labs: Laboratory Results - last 24 hr 02/14/25 20:35: WBC 5.6, RBC 4.50 L, Hgb 14.5, Hct 42.2, MCV 93.8, MCH 32.2 H, MCHC 34.4, RDW Std Deviation 43.1, RDW Coeff of Jaguar 12.5, Plt Count 277, MPV 8.4, Immature Gran % (Auto) 0.700, Neut % (Auto) 48.8, Lymph % (Auto) 37.3, [place] % (Auto) 10.4 H, Eos % (Auto) 2.1, Baso % (Auto) 0.7, Absolute Neuts (auto) 2.7, Absolute Lymphs (auto) 2.09, Nucleated RBC % 0, PT 12.3, INR 0.9, APTT 24.3, Sodium 140, Potassium 3.8, Chloride 103, Carbon Dioxide 22.5, Anion Gap 15, BUN 9, Creatinine 0.77, Estim Creat Clear Calc 127.11, Est GFR (MDRD) Non-Af 100, BUN/Creatinine Ratio 11.4, Glucose 105 H, Hemoglobin A1c 5.8 H, Calcium 9.7, Troponin T High Sens 15, TSH 2.720 02/14/25 23:24: Troponin T Hi Sens 2 Hr 15, Vitamin B12 476, Serum Folate 25.70, Ethyl Alcohol < 10.1 02/15/25 01:40: Troponin T Hi Sens 4Hr 17, Triglycerides 177, Cholesterol 284 H, LDL Cholesterol, Calc 201, VLDL Cholesterol 35, HDL Cholesterol 47, Cholesterol/HDL Ratio 5.99 02/15/25 01:55: Urine Opiates Screen NEGATIVE, U Buprenorphine Qual NEGATIVE, Ur Oxycodone Screen NEGATIVE, Urine Methadone Screen NEGATIVE, Urine Fentanyl Screen NEGATIVE, Ur Barbiturates Screen NEGATIVE, Ur Phencyclidine Scrn NEGATIVE, Ur Amphetamines Screen NEGATIVE, U Benzodiazepines Scrn NEGATIVE, Urine Cocaine Screen NEGATIVE, U Cannabinoids Screen NEGATIVE Imaging Radiology Impression Brain CT 02/14/25 20:26 IMPRESSION: No acute intracranial abnormality. Reading Location: [facility] Head/Neck CTA 02/14/25 20:42 IMPRESSION: Scattered atherosclerotic calcification without hemodynamically significant stenosis. No evidence of acute occlusion or thrombosis. 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 Reading [facility] Echocardiogram 02/14/25 22:56 Interpretation Summary The LV systolic function is normal. EF is 65 %. The left atrium is mildly enlarged. Bubble contrast study is negative for PFO/ASD. Ordering Physician: Sebastian Maya Performed By: Jony Trejo RCS Brain MRI 02/15/25 06:00 IMPRESSION: Mild brain parenchymal atrophy. 1 cm area of acute infarction involving the right thalamus. This does demonstrate some increased signal on the FLAIR sequence. There are additional small scattered foci of increased T2/FLAIR signal in the deep white matter structures of the cerebral hemispheres, which may be on the basis of chronic small-vessel ischemic disease. [place] Alert: 1 cm acute infarct right thalamus. The critical information above was relayed directly by me by telephone to the patient's nurse, Silvia, on 02/15/2025 at 11:56 am with readback verification. [facility] Active Medications Active Medications Active Medications: Current Medications Generic Name Dose Route Start Last Admin Trade Name Freq PRN Reason Stop Dose Admin Acetaminophen 650 mg 02/15/25 00:26 Acetaminophen 325 Mg Tablet PO Q6H PRN PRN Pain 1-10 Or Fever>99.6 Allopurinol 100 mg 02/15/25 08:00 02/15/25 08:20 Allopurinol 100 Mg Tablet PO 100 mg DAILYCM MIRYAM Administration Aspirin 81 mg 02/15/25 08:00 02/15/25 08:20 Aspirin 81 Mg Tab.Chew PO 81 mg DAILYCM MIRYAM Administration Atorvastatin Calcium 40 mg 02/15/25 22:00 Atorvastatin Calcium 40 Mg Tablet PO 2200 MIRYAM Heparin Sodium (Porcine) 5,000 unit 02/15/25 10:00 02/15/25 08:20 Heparin Injection (Vial) 5,000 Unit/Ml Vial SC 5,000 unit Q12 MIRYAM Administration Sodium Chloride 250 mls @ 15 mls/hr 02/15/25 00:30 IV .[id number] PRN Saline Flush Sodium Chloride 250 mls @ 15 mls/hr 02/15/25 00:30 IV .[id number] PRN Additional IVPB Infusion Sodium Chloride 10 - 40 ml 02/15/25 00:30 0.9% Saline Lock 10 Ml Syringe IV UD PRN SALINE FLUSH NIHSS NIHSS Nursing Documentation NIHSS Nursing Documentation: NIHSS: Ischemic Stroke/TIA Start: 02/15/25 00:26 Text: For PCU Patients: NIH and Neuro Check every 4 Status: Active hours, PRN and with change in RN caregiver. Freq: [id number] Protocol: Activity Type Activity Date Activity User E-sign Co-sign Detail Recorded Client Recorded Date Recorded By Document 02/15/25 12:15 EM [id number] 02/15/25 12:49 EM 02/15/25 12:15 NIH Stroke Scale [NIHSS] A score of 0 is normal or asymptomatic . Total possible score is 42. Inpatient: RN or Physician to activate a stroke alert for onset of new stroke symptoms or with NIHSS increase >/= 3 points. Following change in neurological status, NIHSS will be performed per physician order or more frequently PRN. -1a. Level of Consciousness 0 - Alert; keenly responsive -1b. LOC Questions 0 - Answers BOTH questions correctly -1c. LOC Commands 0 - Performs BOTH tasks correctly -2. Best Gaze 0 - Normal -3. Visual 0 - No visual loss -4. Facial Palsy 0 - Normal symmetrical movements -5a. Left Arm 0 - No drift; arm holds 90 ( or 45) degrees for full 10 seconds -5b. Right Arm 0 - No drift; arm holds 90 ( or 45) degrees for full 10 seconds -6a. Left Leg 0 - No drift; leg holds 30- degree position for full 5 seconds -6b. Right Leg 0 - No drift; leg holds 30- degree position for full 5 seconds -7. Limb Ataxia 0 - Absent -8. Sensory 0 - Normal; no sensory loss -9. Best Language 0 - No aphasia; normal -10. Dysarthria 0 - Normal -11. Extinction and Inattention 0 - No abnormality -Total 0 Query Text:A score of 0 is normal or asymptomatic. Total possible score is 42 . ED: Notify Physician for NIHSS increase by > / = 3 points. Inpatient: RN or Physician to activate a stroke alert for NIHSS increase of > / = 3 points. Coma Scale [Assess] -Eye Opening Spontaneous -Motor Obeys Commands -Verbal Oriented [Total] -Coma Scale Total 15 NIHSS 1a. Level of Consciousness: 0 - Alert; keenly responsive 1b. LOC Questions: 0 - Answers BOTH questions correctly 1c. LOC Commands: 0 - Performs BOTH tasks correctly 2. Best Gaze: 0 - Normal 3. Visual: 0 - No visual loss 4. Facial Palsy: 0 - Normal symmetrical movements 5a. Left Arm: 0 - No drift; arm holds 90 (or 45) degrees for full 10 seconds 5b. Right Arm: 0 - No drift; arm holds 90 (or 45) degrees for full 10 seconds 6a. Left Le - No drift; leg holds 30-degree position for full 5 seconds 6b. Right Le - No drift; leg holds 30-degree position for full 5 seconds 7. Limb Ataxia: 0 - Absent 8. Sensory: 0 - Normal; no sensory loss 9. Best Language: 0 - No aphasia; normal 10. Dysarthria: 0 - Normal 11. Extinction and Inattention: 0 - No abnormality Total: 0
[2025-02-15 14:00] VITALS: BMI 33.8
--- NOTE | 2025-02-15 15:04 | PCM.DC.SUM ---
Providers Date of Admission: 02/14/25 Primary Care Physician: Armida Primary Care Phys Consultations 02/15/25 00:26 Consult: Tele-Neurology Routine Consulting Provider: [facility] Reason for Consult: Acute Ischemic Stroke/TIA EMERGENT Consult: No MD Notified: Yes Date Notified: 02/15/25 Time Notified: 01:46 Method of Notification: Answering Service Method of Consult:: Telemedicine Nursing Unit Staff Notify [facility] of Tele-Neurology Consult: Yes Reason For Visit: LEFT FACE AND HAND PARATHEISAS, Diagnosis Discharge Diagnosis (1) Thalamic stroke: Status: Acute Code(s): I63.81 - Other cerebral infarction due to occlusion or stenosis of small artery Plan: left hand and face onset 1200 on 02/14 CVA work up underway. MRI of the brain showed 1 cm area of acute infarct involving the right thalamus. Patient was seen by [facility] recommends 21 days of aspirin and clopidogrel and then aspirin thereafter. Goal LDL 70 or less. LDL here was 201. Patient will be on high intensity statin. Patient advised to follow-up with neurology as outpatient as well. (2) Hypertensive emergency: Status: Acute Code(s): I16.1 - Hypertensive emergency Plan: permissive HTN for initially and then to continue with antihypertensive. Likely patient had hypertensive level due to maintaining cerebral perfusion pressure after his stroke. Plan VTE prophylaxis: SQ heparin. Medications at Discharge Home Medications amlodipine 5 mg tablet 5 mg PO QDAY 07/07/24 olmesartan 20 mg tablet 20 mg PO QDAY 07/07/24 allopurinol 100 mg tablet 100 mg PO Q12H 11/01/24 aspirin 81 mg chewable tablet 81 mg PO DAILYCM #0 tabs 02/15/25 atorvastatin 80 mg tablet 80 mg PO QHS #30 tabs 02/15/25 clopidogrel 75 mg tablet 75 mg PO DAILY #21 tabs 02/15/25 Weight / BMI Weight Weight: 113.3 kg Body Mass Index (BMI) 33.8 ABG / Lab / Microbiology Data 02/14/25 20:35 02/14/25 20:35 Laboratory: Laboratory Results - last 24 hr 02/14/25 20:35: WBC 5.6, RBC 4.50 L, Hgb 14.5, Hct 42.2, MCV 93.8, MCH 32.2 H, MCHC 34.4, RDW Std Deviation 43.1, RDW Coeff of Jaguar 12.5, Plt Count 277, MPV 8.4, Immature Gran % (Auto) 0.700, Neut % (Auto) 48.8, Lymph % (Auto) 37.3, Benson % (Auto) 10.4 H, Eos % (Auto) 2.1, Baso % (Auto) 0.7, Absolute Neuts (auto) 2.7, Absolute Lymphs (auto) 2.09, Nucleated RBC % 0, PT 12.3, INR 0.9, APTT 24.3, Sodium 140, Potassium 3.8, Chloride 103, Carbon Dioxide 22.5, Anion Gap 15, BUN 9, Creatinine 0.77, Estim Creat Clear Calc 127.11, Est GFR (MDRD) Non-Af 100, BUN/Creatinine Ratio 11.4, Glucose 105 H, Hemoglobin A1c 5.8 H, Calcium 9.7, Troponin T High Sens 15, TSH 2.720 02/14/25 23:24: Troponin T Hi Sens 2 Hr 15, Vitamin B12 476, Serum Folate 25.70, Ethyl Alcohol < 10.1 02/15/25 01:40: Troponin T Hi Sens 4Hr 17, Triglycerides 177, Cholesterol 284 H, LDL Cholesterol, Calc 201, VLDL Cholesterol 35, HDL Cholesterol 47, Cholesterol/HDL Ratio 5.99 02/15/25 01:55: Urine Opiates Screen NEGATIVE, U Buprenorphine Qual NEGATIVE, Ur Oxycodone Screen NEGATIVE, Urine Methadone Screen NEGATIVE, Urine Fentanyl Screen NEGATIVE, Ur Barbiturates Screen NEGATIVE, Ur Phencyclidine Scrn NEGATIVE, Ur Amphetamines Screen NEGATIVE, U Benzodiazepines Scrn NEGATIVE, Urine Cocaine Screen NEGATIVE, U Cannabinoids Screen NEGATIVE Radiography Diagnostic Testing: Radiology Impression Brain CT 02/14/25 20:26 IMPRESSION: No acute intracranial abnormality. Reading Location: [facility] Head/Neck CTA 02/14/25 20:42 IMPRESSION: Scattered atherosclerotic calcification without hemodynamically significant stenosis. No evidence of acute occlusion or thrombosis. 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 Reading Location: [facility] Carotid Duplex 02/14/25 22:56 Interpretation Summary Mild (<50%) stenosis right extracranial internal carotid. Mild (<50%) stenosis left extracranial internal carotid. Patent and antegrade vertebrals bilaterally. Ordering Physician: Sebastian Maya Referring Physician: N/A Performed By: Jesse Gonzales RVT Echocardiogram 02/14/25 22:56 Interpretation Summary The LV systolic function is normal. EF is 65 %. The left atrium is mildly enlarged. Bubble contrast study is negative for PFO/ASD. Ordering Physician: Sebastian Maya Performed By: Jony Trejo RCS Brain MRI 02/15/25 06:00 IMPRESSION: Mild brain parenchymal atrophy. 1 cm area of acute infarction involving the right thalamus. This does demonstrate some increased signal on the FLAIR sequence. There are additional small scattered foci of increased T2/FLAIR signal in the deep white matter structures of the cerebral hemispheres, which may be on the basis of chronic small-vessel ischemic disease. [place] Alert: 1 cm acute infarct right thalamus. The critical information above was relayed directly by me by telephone to the patient's nurse, Silvia, on 02/15/2025 at 11:56 am with readback verification. Reading Location: [facility] Instructions Discharge Diet: Low fat / Low cholesterol DC O2, CPAP, BIPAP Needs Home O2 Discharge instructions: No Meaningful Use Info Meaningful Use Meaningful Use Diagnoses (Choose all that apply): Ischemic CVA CVA Therapy Assessed for PT,OT and/or ST?: Yes Ischemic Stroke Antithrombotic order at d/c?: Yes Dx of Atrial fib/flutter?: No Anticoagulant at discharge?: No Reason anticoagulant not ordered: Treatment not Indicated Statin Dosing Therapy Reference: STATIN DOSE THERAPY REFERENCE: * Patients > 75 years receive moderate or high dose statin therapy. * Patients 75 years or YOUNGER should receive HIGH intensity statin dose unless contraindicated. You will be required to document reason for non-treatment if statin daily dose does not meet guidelines. HIGH DOSE STATIN THERAPY DAILY Atorvastatin > than or = to 40 mg Rosuvastatin > than or = to 20 mg Amlodipine + Atorvastatin > than or = to 2.5/40 mg Ezetimibe + Simvastatin 10/80 mg Simvastatin 80mg Statins at discharge?: Yes If patient is 75 or younger, pt will be discharged on HIGH intensity statin.: Yes Primary Dx Acute Ischemic CVA?: Yes IV thrombolytic ordered during stay?: No Reason IV thrombolytic not ordered: Treatment not Indicated Discharge Plan Admission Admit Date/Time: 02/14/25 22:51 Primary Reason for Your Visit: stroke Attending Provider: Reuben Parker Primary Care Provider: Care Physician,No Primary Consulting Providers: Teto Navas; Berna Jean; Erin Prabhakar; Suly North; Carolyn Rai; Kike Nguyen; Nadine Dumas; William Menon; Jono Hope; Preston Lubin; Vivian Ortega; Anshu Fernandez; Christa Ye; Abraham Sánchez; Angelica Christine Memo; Gustavo Gomez; Oswaldo Campos; David Johnson; Lizzy Erazo; Tia Zarco; Sebastian Maya Instructions Patient Instructions: Stroke Brain Body Effects, Stroke: Taking Medicines Additional Instructions / Restrictions: Follow-up with neurology as outpatient. May follow-up with Dr. Bonds here or another neurologist. [facility] [phone]. [facility] [place] [phone]. [facility] [place] [phone]. [facility] [phone]. [facility] [place] [phone]. He will be on aspirin and Plavix for 21 days. After 21 days then you will just take aspirin. Discharge Orders/Prescriptions Prescriptions: New aspirin 81 mg Tablet,Chewable 81 mg PO DAILYCM Qty: 0 0RF clopidogrel 75 mg tablet 75 mg PO DAILY Qty: 21 0RF atorvastatin 80 mg tablet 80 mg PO QHS Qty: 30 0RF Continued olmesartan 20 mg tablet 20 mg PO QDAY amlodipine 5 mg tablet 5 mg PO QDAY allopurinol 100 mg tablet 100 mg PO Q12H Discontinued rosuvastatin [Crestor] 20 MG tablet 20 mg PO DAILY Referrals / Follow Up: [facility] [Provider Group] - Within 1 Month Mason Lunsford MD [Non-Staff] - Within 2 Weeks Care Physician,No Primary [Primary Care Provider] - Disposition Disposition (needs filled in before D/C Order can be placed): Home, Self Care Charges/Coding Visit Charges Inpatient E&M: 62146 Disch Hosp >30min
--- NOTE | 2025-02-15 15:07 | CASEMGMT ---
Social Work- SW met with pt to complete PHQ9. SW introduced self and role; pt agreeable to meeting. Pt reports that [place] event occurred in [place] and pt drove himself home prior to coming to ED. Pt reports he is independent at baseline. Pt scored 0/9 on PHQ9. Pt reports no needs at this time. LORNA Blevins
--- NOTE | 2025-02-15 15:22 | CASEMGMT ---
Patient has order for discharge. LAUREEN SCHMITT updated by OT that patient would benefit from outpatient OT, script received. RN CM in to discuss discharge needs with, at bedside. RN CM updated patient regarding outpatient therapy, patient and states they would like to schedule on their own, script provided to . Patient and had no further questions or concerns. RN CM updated discharge plan.
[2025-02-15 16:08] VITALS: BP 152/87; PULSE 65; RESP 18; TEMP 37; O2SAT 98
== END 2025-02-15 15:10 | disposition home or self-care (01) ==
LOC: ED 22:14 → PCU 23:28
PROVIDERS: Admitting Provider Internal Medicine; Emergency Provider Emergency Medicine
DX: I63.81 Other cerebral infarction due to occlusion or stenosis of small artery (principal); I16.1 Hypertensive emergency; Z68.34 Body mass index [BMI] 34.0-34.9, adult; E78.5 Hyperlipidemia, unspecified; I10 Essential (primary) hypertension; M10.9 Gout, unspecified; E66.811 Obesity, class 1; R20.2 Paresthesia of skin; Z79.899 Other long term (current) drug therapy
CPT/HCPCS: 70450; 70496; 70498; 70551; 80048; 80061; 80307; 82077; 82607; 82746; 83036; 84443; 84484; 85025; 85610; 85730; 93005; 93306; 93880; 96372; 97161; 97166; 97802; 99221; 99285; Q9957; Q9967; A4216; C8929; G0378

== ENCOUNTER 2025-03-09 08:30 | Outpatient (RCR) | payer OTHER, SELFPAY ==
--- NOTE | 2025-02-22 13:14 | HP.OTEVAL ---
Patient's Visit Information Visit Information Visit Information: STANLEY LI is a 64 year old M, referred to Occupational Therapy by Dr. Reuben Parker DO, with a diagnosis of CVA, Infarct L thalamus. Date of Evaluation: 02/22/25 Occupational Therapist: Clau Liu Subjective Subjective: Stanley was admitted to hospital on 02/14/25 and found to have infarct in L thalamus resulting in LUE N/T and LUE ataxia. Stanley lives at home with his and reports improvements in his L hand the past week. Pt has been back to work but hasn't been doing any heavy lifting. 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 He has difficulty with fine motor tasks with left hand including invoices and manipulating coins. Pt reports gout in right foot currently that is improved today. ADLs Comments: Pt living at home with . He has returned to work in a limited capacity. 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 ROM ROM Comments: AROM WFL Strength Shoulder: L: 19.7, R 28.2 Elbow: biceps L 26.2; R 20.8. 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 Pt reports mild N/T in morning which improves throughout the day. Also reports mild residual N/T in face. Transfers Transfers: Indep Nine Hole Peg Right: 19 Left: 28 In-Hand Manipulation Finger to Palm Translation: Mild - Left Palm to Finger Translation: Mild - Left Shift: Mild - Left Rotation: Mild - Left Comments: [id number] test: mild ataxia with LUE Quick DASH-Disab of Arm,Shoulder& Hand Quick DASH Score: 6.8175 Goals Goal:: Pt will demo increase in shoulder strength on Fit2 Peak Force by 10# to increase indep with ADLs and IADLs by dc Goal:: Pt will demo ability to manipulate 10 coins ([id number] translation) to inc pt's indep with money manipulation in the community by dc. Pt will demo improved L hand FMC as evidenced by improved score on 9-hole peg test by 8 seconds or greater for inc indep with IADLs by dc. Pt will demo improved L hand coordination to separate papers using L hand to inc indep with work tasks by dc. Rehabilitation General Assessment: Pt presents with decreased strength in L shoulder as well as decreased coordination and in-hand manipulation skills in L hand which are limiting his participation in work and IADLs. Skilled occupational therapy services are recommended 1x/week for up to 4 weeks to address needs and provide education to assist in reaching max rehab potential. Rehabilitation Potential: Excellent Anticipated Interventions Anticipated Interventions: Strengthening, Fine Motor Coord/Alejandro and Neuro Reeducation Visit Plan Frequency: 1x/Week Duration: 4 Weeks TEXT: Thank you for the opportunity to evaluate your patient. For Medicare and Medicare HMO plans, please review the plan of care and approve it. It will need to be FAXED BACK to us at [phone] for Medicare purposes. Please let me know if there are questions or concerns regarding this plan of care. Physician Signature: Date:
--- NOTE | 2025-06-14 09:17 | HP.OT.NRP ---
Patient Information Patient Information: RICHARD LI was seen in my office for initial evaluation on 02/22/25. The following Plan of Care was established for this patient: POC Established Initial Frequency: 1x/Week Initial Duration: 4 Weeks Plan: Cont with POC 1x/week for 4 weeks Anticipated Interventions Anticipated Interventions: Strengthening, Fine Motor Coord/Alejandro and Neuro Reeducation Last Seen Last Seen: This patient was last seen in our office 03/09/25. Pertinent comments regarding their Occupational therapy will appear below: No further apts have been scheduled and due to time lapse in services pt is d/c. At this point I will be discontinuing this patient from occupational therapy. I would be happy to see this patient again in the future if found appropriate by the physician. Thank you! Naa Johns, OTR/L, CHT
== END 2025-03-09 19:00 | disposition home or self-care (01) ==
LOC: OT 08:30
DX: R27.0 Ataxia, unspecified (principal); R29.2 Abnormal reflex
CPT/HCPCS: 97110; 97165; 97530

== ENCOUNTER → 2025-03-21 | Outpatient (CLI) | payer OTHER, SELFPAY ==
[2025-03-21 12:50] LABS: Absolute Lymphocyte Count 1.83 X10^3/uL (0.83-4.51); Absolute Neutrophil Count 2.4 X10^3/uL (2.0-7.7); Basophil# 0.03 X10^3/uL; Basophil% 0.6 % (0-1); Eosinophil# 0.16 X10^3/uL; Eosinophils% 3.3 % (0-5); Hematocrit 40.1 % (40-54); Hemoglobin 13.3 g/dL (13.0-16.5); Lymphocyte # 1.83 X10^3/ul (0.83-4.51); Lymphocyte % 37.4 % (19-41); Mean Corp Hgb Conc 33.2 g/dL (32-36); Mean Corpuscular Hgb 31.4 pg (27.0-32.0); Mean Corpuscular Volume 94.8 fL (80-94); Mean Platelet Vol. 8.9 fl (6.2-12.0); Monocyte% 10.2 % (0-10); NRBC Flagged by Analyzer 0 % (0-5); Neutrophil # 2.35 X10^3/uL (2.7-7.7); Neutrophil % 48.1 % (47-70); Platelet Count 230 K/mm3 (150-450); RBC Distribution Width SD 41.6 fl (35.1-43.9); Red Blood Count 4.23 M/mm3 (4.6-6.2); White Blood Count 4.9 K/mm3 (4.4-11.0)
[2025-03-21 13:38] LABS: ALB/GLOB Ratio 1.7 RATIO (0.9-2.4); AST(SGOT) 30 U/L (<=37); Alanine Aminotransfer ALT/SGPT 31 U/L (<=46); Albumin, Serum 4.3 g/dL (3.4-4.8); Alkaline Phosphatase 90 U/L (40-129); Anion Gap 12 (5-15); BUN 12 mg/dL (4-19); Calcium,Total 9.5 mg/dL (7.6-11.0); Carbon Dioxide 23.2 mmol/L (21.0-32.0); Chloride 103 mmol/L (98-108); Cholesterol 159 mg/dL (<=200); Creatinine, Serum 0.77 mg/dL (0.70-1.20); EST Glomerular Filtration Rate 100 (>60); Globulin 2.5 g/dL (2.2-4.2); Glucose 125 mg/dL (70-99); High Density Lipoprotein 49 mg/dL; Low Density Lipoprotein Calc. 78 mg/dL; Potassium 4.6 mmol/L (3.3-5.1); Protein, Total 6.8 g/dL (5.9-8.4); Sodium Level 138 mmol/L (133-145); Total Bilirubin 0.42 mg/dL (0.00-1.30); Triglycerides 162 mg/dL; Uric Acid 5.6 mg/dL (3.5-7.2); Very Low Density Lipoprotein 32 mg/dL (5-40); cholesterol:hdl ratio screen 3.27
[2025-03-23 06:44] LABS: Hemoglobin A1c 6.5 % (<=5.6)
== END | disposition home or self-care (01) ==
LOC: VSLAB 09:24
PROVIDERS: PCP Nurse Practitioner Family; Visit Provider Nurse Practitioner Family
DX: Z86.73 Personal history of transient ischemic attack (TIA), and cerebral infarction without residual deficits (principal); M10.9 Gout, unspecified; E78.5 Hyperlipidemia, unspecified; R73.01 Impaired fasting glucose
CPT/HCPCS: 36415; 80053; 80061; 83036; 84550; 85025

== ENCOUNTER → 2025-05-15 | Outpatient (CLI) | payer OTHER, SELFPAY ==
[2025-05-15 12:51] LABS: AST(SGOT) 32 U/L (<=37); Alanine Aminotransfer ALT/SGPT 30 U/L (<=46); Albumin, Serum 4.5 g/dL (3.4-4.8); Alkaline Phosphatase 99 U/L (40-129); Anion Gap 11 (5-15); BUN 11 mg/dL (4-19); BUN/Creat Ratio 15.9 RATIO (10-20); Calcium,Total 9.6 mg/dL (7.6-11.0); Carbon Dioxide 24.5 mmol/L (21.0-32.0); Chloride 104 mmol/L (98-108); Globulin 2.4 g/dL (2.2-4.2); Glucose 120 mg/dL (70-99); Potassium 5.1 mmol/L (3.3-5.1)
--- OUTSIDE RECORDS SUMMARY | 2025-05-15 17:36 | XMS RPT_ITS | CCD ---
Author Organization [facility] Care Team Providers Care Qa Specialist Name Role Phone Jono Tello MD Unavailable Pcp, No Primary Care Provider Unavailabl e Unavailable Primary Care Provider Unavailabl e Unavailable Primary Care Provider Unavailabl e Beto Fofana MD Primary Care Provider BETO FOFANA Attending Unavailab Dr. Beto Lincoln MD Primary Care Provider Dr. Beto Fofana MD Referring Provider Dr. Wade Pineda DO Attending Provider Dr. Cortes Jacobo MD Attending Provider Dr. Quirino Briggs DO Emergency Provider Care Physician, No Primary Primary Care Provider Unavailable Dr. Sebastian Maya DO Admit Provider Unavail able Dr. Sebastian Maya DO Attending Provider Unav ailable de Dr. Sebastian Mills DO Other Provider Unavail able Teto Navas MD Other Provider Unavailable Dr. Berna Jean MD Other Provider [phone] Erin Prabhakar MD Other Provider Unavailable Dr. Suly North DO Other Provider Dr. Carolyn Rai MD Other Provider [phone] Kike Nguyen MD Other Provider [phone] Dr. Nadine Dumas MD Other Provider [phone] William Menon MD Other Provider Dr. Jono Hope MD Other Provider Tristian MATHIS, Dr. Johnston Other Provider Shannon MATHIS, Vivian Other Provider Rebecca MATHIS, Dr. Brasher Other Provider Ephraim MATHIS, Dr. Goodwin Other Provider Princess MATHIS, Dr. Rosario Other Provider Emmett MATHIS, Dr. Angelica Hampton Other Provider Jason MATHIS, Dr. Chen Other Provider Andres MATHIS, Dr. Chacon Other Provider Alex MATHIS, Dr. Hernandez Other Provider Castro MATHIS, Dr. Ball Other Provider Unavailable Carolee MATHIS, Youf Other Provider Unavailable Dr. Reuben Parker DO Attending Provider 1([facility])[phone] Dr. Reuben Parker DO Other Provider 1([facility])[phone] Akash MATHIS, Dr. Garner Attending Provider Dr. Reuben Jackson MD Attending Provider 1([facility])[phone] Dr. Sebastian Maya DO Referring Provider Unav ailable Dr. Reuben Parker DO Referring Provider Angeli FLEET DISPATCH MANAGER-CNaila Primary Care Provider Angeli FLEET DISPATCH MANAGER-CNaila Attending Provider Reuben Parker Referring Unavailable Reuben Parker Attending Unavailable Care Physician, No Primary Primary Care Unava ilable Reuben Parker Attending Unavailable Teto Navas Consulting Unavailable Care Physician, No Primary Primary Care Unava ilable Sebastian Maya Admitting Unavailable Adeli, Aminydia Consulting Unavailable Hinduja, Erin Consulting Unavailable Can, Suly Consulting Unavailable Zha, Carolyn Consulting Unavailable Wendy, Kike Consulting Unavailable Alesia, Nadine Consulting Unavailable Bittar, William Consulting Unavailable Jono Hope Consulting Unavailable Preston Lubin Consulting Unavailable Vivian Ortega Consulting Unavailable Anshu Fernandez Consulting Unavailable Christa Ye Consulting Unavailable Abraham Sánchez Consulting Unavailable Emmett, Terrelld Memo Consulting UnavailGustavo Escalera Consulting Unavailable Oswaldo Campos Consulting Unavailable David Johnson Consulting Unavailable Lizzy Erazo Consulting Unavailable Tia Zarco Consulting Unavailable Sebastian Maya Consulting Unavailable Care Physician, No Primary Primary Care Unava ilable Sebastian Maya Referring Unavailable Reuben Jackson Attending Unavailable Beto Fofana Referring Unavailable Beto Fofana Primary Care Unavailable Kash Craven Attending Unavailable Beto Fofana Referring Unavailable Beto Fofana Primary Care Unavailable Wade Pineda Attending Unavailable Beto Fofana Primary Care Unavailable Cortes Jacobo Attending Unavailable Teto Navas Consulting Unavailable Care Physician, No Primary Primary Care Unava ilable Sebastian Maya Admitting Unavailable Sebastian Maya Attending Unavailable Berna Jean Consulting Unavailable Erin Prabhakar Consulting Unavailable Suly North Consulting Unavailable Carolyn Rai Consulting Unavailable Kike Nguyen Consulting Unavailable Nadine Dumas Consulting Unavailable William Menon Consulting Unavailable Jono Hope Consulting Unavailable Preston Lubin Consulting Unavailable Vivian Ortega Consulting Unavailable Anshu Fernandez Consulting Unavailable Christa Ye Consulting Unavailable Abraham Sánchez Consulting Unavailable Emmett, Terrelld Memo Consulting UnavailGustavo Escalera Consulting Unavailable Oswaldo Campos Consulting Unavailable David Johnson Consulting Unavailable Lizzy Erazo Consulting Unavailable Tia Zarco Consulting Unavailable Sebastian Maya Consulting Unavailable Reuben Parker Attending Unavailable Reuben Parker Consulting Unavailable Pascual Bustos Attending Unavailable Care Physician, No Primary Primary Care Unava ilable Naila Suh Attending Unavailable Naila Suh Primary Care Unavailable Medications Current Medications Medication Drug Class(es) Dates Sig (Normalized) Sig (Original) allopurinol 100 mg oral tablet (11 sources) Xanthine Oxidase Inhibitor Start: 11-01-2024 take 1 tablet by mouth every twelve hours Allopurinol 100 mg tablet Active 100 mg PO Q12H November 01, 2024 10:04am Start: 07-07-2024 End: 11-01-2024 take 2 tablets by mouth once daily Allopurinol 100 mg tablet Discontinued 200 mg PO daily July 07, 2024 12:00am November 01, 2024 10:04am Start: 06-04-2021 End: 03-29-2024 take 1 tablet by mouth once daily allopurinol (ZYLOPRIM) 100 mg tablet Take 1 tablet by mouth once daily. 90 tablet 3 03/29/2024 Active Comment on above: Take 1 tablet by hilario th once daily. amLODIPine 5 mg oral tablet (6 sources) Dihydropyridine Calcium Channel Hari Start: take 1 tablet by mouth once daily Amlodipine 5 mg tablet Active 5 mg PO daily July 07, 2024 12:00am Start: 03-29-2024 take 1 tablet by hilario th once daily amLODIPine (NORVASC) 10 mg tablet Take 1 tablet by mouth once daily. 90 tablet 3 03/29/2024 Active Start: 12-15-2017 End: 03-29-2024 take 2 tablets by mouth once daily amLODIPine (NORVASC) 5 mg tablet Take 10 mg by mouth once daily. 0 12/15/2017 03/29/2024 Discontinued aspirin 81 mg chewable tablet (2 sources) Platelet Aggregation Inhibitor, Nonsteroidal Anti-inflammatory Drug Start: 02-15-2025 take 1 tablet by mouth once daily at mealtime Aspirin 81 mg Tablet,Chewable Active 81 mg PO DAILY WITH MEALS February 15, 2025 12:00am atorvastatin 80 mg oral tablet (2 sources) HMG-CoA Reductase Inhibitor Start: 02-15-2025 take 1 tablet by mouth at bedtime Atorvastatin 80 mg tablet Active 80 mg PO AT BEDTIME February 15, 2025 12:00am clopidogrel 75 mg oral tablet (2 sources) P2Y12 Platelet Inhibitor Start: 02-15-2025 take 1 tablet by mouth once daily Clopidogrel 75 mg tablet Active 75 mg PO DAILY February 15, 2025 12:00am olmesartan medoxomil 20 mg oral tablet (9 sources) Angiotensin 2 Receptor Hari Start: 07-07-2024 take 1 tablet by mouth once daily Olmesartan 20 mg tablet Active 20 mg PO daily July 07, 2024 12:00am Start: 07-13-2022 End: 03-29-2024 take 1 tablet by mouth once daily olmesartan (BENICAR) 20 mg tablet Take 1 tablet by mouth once daily. 90 tablet 3 03/29/2024 Active Comment on above: TAKE 1 TABLET DAILY Completed/Discontinued Medications Medication Drug Class(es) Dates Sig (Normalized) Sig (Original) acetaminophen 325 mg / oxyCODONE hydrochloride 5 mg oral tablet (7 sources) Opioid Agonist Start: 10-01-2016 End: 07-07-2024 Oxycodone-Acetamino phen 1 TABLET tablet Discontinued 1 - 2 {tbl} PO 4 TIMES DAILY NEEDED as needed for Pain October 01, 2016 11:06am July 07, 2024 4:30pm Start: 03-24-2016 End: 03-29-2024 take 1 tablet by mouth every four hours as needed oxyCODONE-acetaminophen (PERCOCET) 5-325 mg tablet Take 1 tablet by mouth every 4 hours as needed for Pain. 25 tablet 0 03/24/2016 03/29/2024 Discontinued Comment on above: Take 1 tablet by hilario th every 4 hours as needed for Pain. azithromycin 250 mg oral tablet (2 sources) Macrolide Antimicrobial Start: 11-29-19 End: 12-04-19 ZITHROMAX 250 MG TABS Take two (2 ) tablets day one, then one (1) tablet a day for four (4) more days AZITHROMYCIN [id number] Praveena GARCIA benzonatate 200 mg oral capsule (2 sources) Non-narcotic Antitussive Start: 11-29-19 End: 12-04-19 take 1 capsule by mouth every eight hours as needed for cough TESSALON 200 MG CAPS 1 cap by mouth every 8 hours as needed for cough BENZONATATE [id number] Praveena GARCIA clindamycin 300 mg oral capsule (3 sources) Lincosamide Antibacterial Start: 10-01-20 End: 07-07-20 take 1 capsule by mouth three times daily Clindamycin Hcl (Cleocin) 300 MG capsule Discontinued 300 mg PO THREE TIMES A DAY October 01, 2016 1:00am July 07, 2024 4:30pm colchicine 0.6 mg oral capsule (3 sources) Start: 07-07-20 End: 07-17-20 Colchicine 0.6 mg capsule Discontinued 0.6 mg PO daily 09 19July 07, 2024 12:00am July 16, 2024 12:00am July 17, 2024 12:08am Take 2 tabs PO day one then one more one hour later then one tab daily for 9 days. etodolac 500 mg oral tablet (3 sources) Nonsteroidal Anti-inflammatory Drug Start: 11-01-19 End: 02-15-20 Etodolac 500 mg tablet Discontinued 500 mg PO TWICE A DAY November 01, 2024 1:00am February 14, 2025 11:19pm Take 2 weeks regular then as needed. Do not take in conjunction with other NSAID Tylenol is okay. Ibuprofen (2 sources) Nonsteroidal Anti-inflammatory Drug IBUPROFEN CAPS as needed IBUPROFEN CAPS [id number] Mar Pichardo imiquimod 50 mg/ml topical cream (3 sources) Start: 10-01-20 End: 07-07-20 Imiquimod (Aldara) 1 EACH cream in packet Discontinued 1 NMA TP DAILY October 01, 2016 1:00am July 07, 2024 4:30pm apply daily at night 5 days per week for 6 weeks. rosuvastatin calcium 20 mg oral tablet (15 sources) HMG-CoA Reductase Inhibitor Start: 09-22-20 End: 02-16-20 take 1 tablet by mouth once daily Rosuvastatin (Crestor) 20 MG tablet Discontinued 20 mg PO DAILY September 22, 2016 1:00am February 15, 2025 3:07pm Start: 11-29-2010 End: 08-21-2016 take 1 tablet by mouth once daily CRESTOR 10 MG TABS 1 tab by mouth daily ROSUVASTATIN CALCIUM [id number] Praveena GARCIA Comment on above: Take 20 mg by mouth once daily. Problems Active Problems Problem Classification Problem Date Documented Da te Episodic/Chronic Acute cerebrovascular disease (4 sources) Other cerebral infarction due to occlusion or stenosis of small artery; Translations: [Cerebrovascular accident (CVA) of thalamus] 02-15-2025 Chronic Disorders of lipid metabolism (9 sources) Hyperlipidemia; Translations: [Mixed hyperlipidemia] Onset: 03-13-2016 11-29-2010 Chronic Essential hypertension (13 sources) Essential hypertension; Translations: [Essential (primary) hypertension] Onset: 03-29-2024 03-29-2024 Chronic Gout and other crystal arthropathies (3 sources) Gout; Translations: [Gout, unspecified] Onset: 06-04-2021 03-29-2024 Chronic Hypertension with complications and secondary hypertension (8 sources) Hypertensive emergency; Translations: [Hypertensive emergency] Onset: 02-15-2025 02-14-2025 Chronic Miscellaneous mental health disorders (2 sources) Impotence; Translations: [Male erectile disorder] Onset: 05-07-2017 03-29-2024 Chronic Neoplasms of unspecified nature or uncertain behavior (10 sources) Neoplasm of skin; Translations: [Neoplasm of skin of neck] Onset: 08-24-2016 09-04-2016 Episodic Comment on above: D49.21 cm lesion lef t lateral neck D49.26 mm lesion rig ht medial lower eyelid Osteoarthritis (6 sources) Osteoarthritis of right knee joint; Translations: [Unilateral primary osteoarthritis, right knee] Onset: 11-01-2024 11-01-2024 Chronic Other circulatory disease (1 source) Personal history of transient ischemic attack (TIA), and cerebral infarction without residual deficits; Translations: [Personal history of transient ischemic attack (TIA), and cerebral infarction without residual deficits] Onset: 03-28-2025 Episodic Other nervous system disorders (6 sources) Paresthesia; Translations: [Paresthesia of skin] 02-14-2025 Episodic Other nervous system disorders (1 source) Paresthesia of skin; Translations: [Paresthesia of skin] Onset: 02-15-2025 Episodic Other nutritional; endocrine; and metabolic disorders (6 sources) Obese class I; Translations: [Class 1 obesity] 02-14-2025 Chronic Other screening for suspected conditions (not mental disorders or infectious disease) (6 sources) Patient encounter status; Translations: [Encounter for screening for malignant neoplasm of colon] Onset: 03-29-2024 03-29-2024 Episodic Other upper respiratory disease (2 sources) Allergic rhinitis; Translations: [Allergic rhinitis, unspecified] Onset: 05-07-2017 03-29-2024 Chronic Residual codes; unclassified (5 sources) Family history of malignant neoplasm of skin; Translations: [Family history of malignant neoplasm of other organs or systems] Onset: 08-24-2016 09-04-2016 Episodic Comment on above: Z80.8 Unclassified (2 sources) Aftercare ; Translations: [Encounter for other specified surgical aftercare] Onset: 10-07-2016 10-12-2016 Unclassified (1 source) Obesity, class 1; Translations: [Obesity, class 1] Onset: 02-15-2025 Past or Other Problems Problem Classification Problem Date Documented Da te Episodic/Chronic Abdominal hernia (5 sources) Umbilical hernia; Translations: [Umbilical hernia without obstruction or gangrene] Onset: 03-05-2016 03-05-2016 Episodic Acute bronchitis (2 sources) Acute bronchitis; Translations: [Acute bronchitis, unspecified] Onset: 11-29-2010 Resolved: 12-29-2010 11-29-2010 Episodic Other non-traumatic joint disorders (1 source) Pain in right knee; Translations: [Pain in right knee] Onset: 11-01-2024 Episodic Other skin disorders (3 sources) Actinic keratosis; Translations: [Epidermoid cyst] Onset: 10-07-2016 10-12-2016 Episodic Other skin disorders (1 source) Epidermoid cyst; Translations: [Epidermal cyst] Onset: 10-07-2016 10-12-2016 Episodic Results Test Name Value Interpretation Reference Range Facility Hemoglobin A1con 03-23-2025 HbA1c (Bld) [Mass fraction] 6.5 % High <=5.6 [facility] Comment on above: Order Comment: ADD O N PLEASE Result Comment: Norm al < 5.7 % Prediabetic 5.7 - 6.4 % Diabetic >or= 6.5 % Please note range changes. Performed By: #### L 500.4050, L500.4100, L501.9985, L100.0100, L501.1400 ####[facility] [address] [place], [place], [id number] Absolute lymphocyte countOrd ered By: Naila Suh on 03-21-2025 Lymphocytes Auto (Unsp spec) [#/Vol] 1.83 10*3/uL 0.83-4.51 [facility] Absolute neutrophil countOrd ered By: Naila Suh on 03-21-2025 Neutrophils (Bld) [#/Vol] 2.4 10*3/uL 2.0-7.7 [facility] Anion gap in Serum or Plasma Ordered By: Naila Suh on 06-11-2025 Anion gap [Moles/Vol] 12 mmol/L 5-15 [facility] Automated lymphocyte count a s percentage of total leukocytesOrdered By: Naila Suh on 03-21-2025 Lymphocytes/100 WBC Auto (Unsp spec) 37.4 % 19- [facility] BUN/creatinine ratioOrdered By: Naila Suh on 03-21-2025 Urea nitrogen/Creatinine [Mass ratio] 15.0 mg/mg 10-20 [facility] Basophil percentageOrdered B y: Naila Suh on 03-21-2025 Basophils/100 WBC (Bld) 0.6 % 0-1 [facility] Bilirubin, totalOrdered By: Naila Suh on 03-21-2025 Bilirubin [Mass/Vol] 0.42 mg/dL 0.00-1.30 [facility] CBC W/Diff, Automatedon 03-11 Absolute Lymph 1.83 X10 3/uL Normal 0.83-4.51 [facility] Comment on above: Performed By: #### L 500.4050, L500.4100, L501.9985, L100.0100, L501.1400 ####[facility] [address] [place], [address] Absolute Neut 2.4 X10 3/uL Normal 2.0-7.7 [facility] Comment on above: Performed By: #### L [id number], L500.4100, L501.9985, L100.0100, L501.1400 ####[facility] [address] [place], [address] Basophils/100 WBC (Bld) 0.6 % Normal 0-1 [facility] Comment on above: Performed By: #### L 500.4050, L500.4100, L501.9985, L100.0100, L501.1400 ####[facility] [address] [place], [address] Eosinophils/100 WBC (Bld) 3.3 % Normal 0-5 [facility] Comment on above: Performed By: #### L [id number], L500.4100, L501.9985, L100.0100, L501.1400 ####[facility] [address] [place], [address] Erythrocyte distribution width (RBC) [Ratio] 12.0 % Normal 11.6-14.6 [facility] Comment on above: Performed By: #### L 500.4050, L500.4100, L501.9985, L100.0100, L501.1400 ####[facility] [address] [place], [address] Hematocrit (Bld) [Volume fraction] 40.1 % Normal 40-54 [facility] Comment on above: Performed By: #### L 500.4050, L500.4100, L501.9985, L100.0100, L501.1400 ####[facility] [address] [place], [address] Hemoglobin (Bld) [Mass/Vol] 13.3 g/dL Normal 13.0-16.5 [facility] Comment on above: Performed By: #### L 500.4050, L500.4100, L501.9985, L100.0100, L501.1400 ####[facility] [address] [place], [address] IG% 0.400 Normal 0.0-0.9 [facility] Comment on above: Result Comment: IG% - Immature Granulocytes (promyelocytes, myelocytes and metamyelocytes) > 1% indicates that a LEFT SHIFT is Present. Performed By: #### L 500.4050, L500.4100, L501.9985, L100.0100, L501.1400 ####[facility] [address] [place], [address] Lymphocytes/100 WBC (Bld) 37.4 % Normal 19-41 [facility] Comment on above: Performed By: #### L 500.4050, L500.4100, L501.9985, L100.0100, L501.1400 ####[facility] [address] [place], [address] MCH (RBC) [Entitic mass] 31.4 pg Normal 27.0-32.0 [facility] Comment on above: Performed By: #### L 500.4050, L500.4100, L501.9985, L100.0100, L501.1400 ####[facility] [address] [place], [address] MCHC (RBC) [Mass/Vol] 33.2 g/dL Normal 32-36 [facility] Comment on above: Performed By: #### L 500.4050, L500.4100, L501.9985, L100.0100, L501.1400 ####[facility] [address] [place], [address] MCV (RBC) [Entitic vol] 94.8 fL High 80-94 [facility] Comment on above: Performed By: #### L 500.4050, L500.4100, L501.9985, L100.0100, L501.1400 ####[facility] [address] [place], [address] Monocytes/100 WBC (Bld) 10.2 % High 0-10 [facility] Comment on above: Performed By: #### L 500.4050, L500.4100, L501.9985, L100.0100, L501.1400 ####[facility] [address] [place], [address] Neutrophils/100 WBC (Bld) 48.1 % Normal 47-70 [facility] Comment on above: Performed By: #### L 500.4050, L500.4100, L501.9985, L100.0100, L501.1400 ####[facility] [address] [place], [address] Nucleated RBC (Bld) [#/Vol] 0 10*3/uL Normal 0-5 [facility] Comment on above: Performed By: #### L 500.4050, L500.4100, L501.9985, L100.0100, L501.1400 ####[facility] [address] [place], [address] Platelet mean volume (Bld) [Entitic vol] 8.9 fL Normal 6.2-12.0 [facility] Comment on above: Performed By: #### L 500.4050, L500.4100, L501.9985, L100.0100, L501.1400 ####[facility] [address] [place], [address] Platelets (Bld) [#/Vol] 230 10*3/uL Normal 150-450 [facility] Comment on above: Performed By: #### L 500.4050, L500.4100, L501.9985, L100.0100, L501.1400 ####[facility] [address] [place], [address] RBC (Bld) [#/Vol] 4.23 10*6/uL Low 4.6-6.2 [facility] Comment on above: Performed By: #### L 500.4050, L500.4100, L501.9985, L100.0100, L501.1400 ####[facility] [address] [place], [address] RDW SD 41.6 fl Normal 35.1-43.9 [facility] Comment on above: Performed By: #### L 500.4050, L500.4100, L501.9985, L100.0100, L501.1400 ####[facility] [address] [place], [address] WBC (Bld) [#/Vol] 4.9 10*3/uL Normal 4.4-11.0 [facility] Comment on above: Performed By: #### L 500.4050, L500.4100, L501.9985, L100.0100, L501.1400 ####[facility] [address] [place], [address] Calculated very low density lipoprotein (VLDL) cholesterol measurementOrdered By: Naila Suh on 03-21-2025 Calculated very low density lipoprotein (VLDL) cholesterol measurement 32 mg/dL 5-40 [facility] Carbon dioxide, total [Moles /volume] in Central venous bloodOrdered By: Naila Suh on 03-21-2025 CO2 [Moles/Vol] 23.2 mmol/L 21.0-32.0 [facility] Chloride assayOrdered By: Nicole Suh on 03-21-2025 Chloride [Moles/Vol] 103 mmol/L 98-108 [facility] Comprehensive Metabolic Prof ilon 03-21-2025 Albumin [Mass/Vol] 4.3 g/dL Normal 3.4-4.8 [facility] Comment on above: Performed By: #### L 500.4050, L500.4100, L501.9985, L100.0100, L501.1400 ####[facility] [address] [place], [address] Albumin/Globulin [Mass ratio] 1.7 {ratio} Normal 0.9-2.4 [facility] Comment on above: Performed By: #### L 500.4050, L500.4100, L501.9985, L100.0100, L501.1400 ####[facility] [address] [place], [address] ALK PHOS 90 U/L Normal 40-129 [facility] Comment on above: Performed By: #### L 500.4050, L500.4100, L501.9985, L100.0100, L501.1400 ####[facility] [address] [place], [address] ALT [Catalytic activity/Vol] 31 U/L Normal <=46 [facility] Comment on above: Performed By: #### L 500.4050, L500.4100, L501.9985, L100.0100, L501.1400 ####[facility] [address] [place], [address] AST [Catalytic activity/Vol] 30 U/L Normal <=37 [facility] Comment on above: Performed By: #### L 500.4050, L500.4100, L501.9985, L100.0100, L501.1400 ####[facility] [address] [place], [address] Bilirubin [Mass/Vol] 0.42 mg/dL Normal 0.00-1.30 [facility] Comment on above: Performed By: #### L 500.4050, L500.4100, L501.9985, L100.0100, L501.1400 ####[facility] [address] [place], [address] BUN/CRE 15.0 RATIO Normal 10-20 [facility] Comment on above: Performed By: #### L 500.4050, L500.4100, L501.9985, L100.0100, L501.1400 ####[facility] [address] [place], [address] Calcium [Mass/Vol] 9.5 mg/dL Normal 7.6-11.0 [facility] Comment on above: Performed By: #### L 500.4050, L500.4100, L501.9985, L100.0100, L501.1400 ####[facility] [address] [place], [address] Chloride [Moles/Vol] 103 mmol/L Normal 98-108 [facility] Comment on above: Performed By: #### L 500.4050, L500.4100, L501.9985, L100.0100, L501.1400 ####[facility] [address] [place], [address] CO2 [Moles/Vol] 23.2 mmol/L Normal 21.0-32.0 [facility] Comment on above: Performed By: #### L 500.4050, L500.4100, L501.9985, L100.0100, L501.1400 ####[facility] [address] [place], [address] Creatinine [Mass/Vol] 0.77 mg/dL Normal 0.70-1.20 [facility] Comment on above: Performed By: #### L 500.4050, L500.4100, L501.9985, L100.0100, L501.1400 ####[facility] [address] [place], [address] GAP 12 Normal 5-15 [facility] Comment on above: Performed By: #### L 500.4050, L500.4100, L501.9985, L100.0100, L501.1400 ####[facility] [address] [place], [address] GFR/1.73 sq M.predicted among non-blacks MDRD (S/P/Bld) [Vol rate/Area] 100 mL/min/{1.73_m2} Normal >60 [facility] Comment on above: Result Comment: mL/m in/1.73m2 CKD-EPI Creatinine Equation (2020) Performed By: #### L 500.4050, L500.4100, L501.9985, L100.0100, L501.1400 ####[facility] [address] [place], [address] Globulin (S) [Mass/Vol] 2.5 g/dL Normal 2.2-4.2 [facility] Comment on above: Performed By: #### L 500.4050, L500.4100, L501.9985, L100.0100, L501.1400 ####[facility] [address] [place], [address] Glucose [Mass/Vol] 125 mg/dL High 70-99 [facility] Comment on above: Performed By: #### L 500.4050, L500.4100, L501.9985, L100.0100, L501.1400 ####[facility] [address] [place], [address] Potassium [Moles/Vol] 4.6 mmol/L Normal 3.3-5.1 [facility] Comment on above: Performed By: #### L 500.4050, L500.4100, L501.9985, L100.0100, L501.1400 ####[facility] [address] [place], [address] Sodium [Moles/Vol] 138 mmol/L Normal 133-145 [facility] Comment on above: Performed By: #### L 500.4050, L500.4100, L501.9985, L100.0100, L501.1400 ####[facility] [address] [place], [address] T PROT 6.8 g/dL Normal 5.9-8.4 [facility] Comment on above: Performed By: #### L 500.4050, L500.4100, L501.9985, L100.0100, L501.1400 ####[facility] [address] [place], [address] Urea nitrogen [Mass/Vol] 12 mg/dL Normal 4-19 [facility] Comment on above: Performed By: #### L 500.4050, L500.4100, L501.9985, L100.0100, L501.1400 ####[facility] [address] [place], [address] Eosinophil percentageOrdered By: Naila Suh on 03-21-2025 Eosinophils/100 WBC (Bld) 3.3 % 0-5 [facility] Erythrocyte distribution wid th ratioOrdered By: Nailafiona Mullinsemily on 03-21-2025 Erythrocyte distribution width (RBC) [Ratio] 12.0 % 11.6-14.6 [facility] Erythrocyte distribution wid th standard deviationOrdered By: Nailafiona Suh on 03-21-2025 Erythrocyte distribution width (RBC) [Ratio] 41.6 fl 35.1-43.9 [facility] Glomerular filtration rate ( GFR) estimation/1.73 sq m using serum, plasma, or whole bOrdered By: Nailafiona Mullinsemily on 03-21-2025 GFR/1.73 sq M.predicted among non-blacks MDRD (S/P/Bld) [Vol rate/Area] 100 mL/min/{1.73_m2} >60 [facility] Comment on above: mL/min/1.73m2 CKD-EP I Creatinine Equation (2020) Hematocrit Auto (Bld) [Volum e fraction]Ordered By: Nailafiona Mullinsemily on 03-21-2025 Hematocrit (Bld) [Volume fraction] 40.1 % 40-54 [facility] Hemoglobin A1c percentageOrd ered By: Nailafiona Mullinsemily on 03-21-2025 HbA1c (Bld) [Mass fraction] 6.5 % High <5.7 [facility] Comment on above: Normal < 5.7 % Predi abetic 5.7 - 6.4 % Diabetic >or= 6.5 % Please note range changes. Hemoglobin measurementOrdere d By: Naila Suh on 03-21-2025 Hemoglobin (Bld) [Mass/Vol] 13.3 g/dL 13.0-16.5 [facility] Immature granulocytes/100 WB C Auto (Bld)Ordered By: Nailafiona Suh on 03-21-2025 Immature granulocytes/100 WBC (Bld) 0.400 % 0.0-0.9 [facility] Comment on above: IG% - Immature Granu locytes (promyelocytes, myelocytes and metamyelocytes) > 1% indicates that a LEFT SHIFT is Present. LDL calc ser/plasOrdered By: Naila Suh on 03-21-2025 Cholesterol in LDL [Mass/Vol] 78 mg/dL [facility] Comment on above: Djxjvvtobr=660-419 m g/dL & Higher Uitz=838 mg/dL or greater Laboratory - Chemistry and C hemistry - challengeOrdered By: Naila Suh on 03-21-2025 AST [Catalytic activity/Vol] 30 U/L <38 [facility] Lipid Profileon 03-21-2025 CHOL:HDL 3.27 Normal [facility] Comment on above: Performed By: #### L 500.4050, L500.4100, L501.9985, L100.0100, L501.1400 ####[facility] [address] [place], [address] Cholesterol [Mass/Vol] 159 mg/dL Normal <=200 [facility] Comment on above: Result Comment: Chol esterol level, Desirable <200 mg/dL Borderline high cholesterol 200-239 mg/dL High cholesterol >=240 mg/dL Recommendations of the NCEP Adult Treatment Panel for the following risk-cutoff thresholds for the [place] population. Performed By: #### L 500.4050, L500.4100, L501.9985, L100.0100, L501.1400 ####[facility] [address] [place], [address] Cholesterol in HDL [Mass/Vol] 49 mg/dL Normal [facility] Comment on above: Result Comment: Marlen onal Cholesterol Education Program (NCEP) guidelines: <40 mg/dL: Low HDL-cholesterol (major risk factor for CHD) >= 60 mg/dL: High HDL-cholesterol (negative risk factor for CHD) HDL-cholesterol is affected by a number of factors, e.g. smoking, exercise, hormones, sex and age. Performed By: #### L 500.4050, L500.4100, L501.9985, L100.0100, L501.1400 ####[facility] [address] [place], [address] Cholesterol in LDL [Mass/Vol] 78 mg/dL Normal [facility] Comment on above: Result Comment: Bord dwutxs=531-365 mg/dL Higher Ztsr=447 mg/dL or greater Performed By: #### L 500.4050, L500.4100, L501.9985, L100.0100, L501.1400 ####[facility] [address] [place], [address] Cholesterol in VLDL [Mass/Vol] 32 mg/dL Normal 5-40 [facility] Comment on above: Performed By: #### L 500.4050, L500.4100, L501.9985, L100.0100, L501.1400 ####[facility] [address] [place], [address] Triglyceride [Mass/Vol] 162 mg/dL Normal [facility] Comment on above: Result Comment: The drugs N-Acetylcysteine and Metamizole may falsely depress this assay. Normal range: <150 mg/dL Borderline High: 150-199 mg/dL High: 200-499 mg/dL Very High: >500 mg/dL Performed By: #### L 500.4050, L500.4100, L501.9985, L100.0100, L501.1400 ####[facility] [address] [place], [address] MCV (mean corpuscular volume ) determinationOrdered By: Naila Suh on 03-21-2025 MCV (RBC) [Entitic vol] 94.8 fL High 80-94 [facility] Mean corpuscular hemoglobin (MCH) determinationOrdered By: Naila Suh on 03-21-2025 MCH (RBC) [Entitic mass] 31.4 pg 27.0-32.0 [facility] Mean corpuscular hemoglobin concentration (MCHC) determinationOrdered By: Naila Suh on 03-21-2025 MCHC (RBC) [Mass/Vol] 33.2 g/dL 32-36 [facility] Mean platelet volume determi nationOrdered By: Naila Suh on 03-21-2025 Platelet mean volume (Bld) [Entitic vol] 8.9 fL 6.2-12.0 [facility] Monocyte percentageOrdered B y: Naila Suh on 03-21-2025 Monocytes/100 WBC (Bld) 10.2 % High 0-10 [facility] Neutrophil percentageOrdered By: Naila Suh on 03-21-2025 Neutrophils/100 WBC (Bld) 48.1 % 47-70 [facility] Nucleated red blood cell per centageOrdered By: Naila Suh on 03-21-2025 Nucleated RBC/100 WBC (Bld) [Ratio] 0 % 0-5 [facility] Platelet countOrdered By: Nicole Suh on 03-21-2025 Platelets (Bld) [#/Vol] 230 10*3/uL 150-450 [facility] Potassium measurement (mass/ volume)Ordered By: Naila Suh on 03-21-2025 Potassium (Unsp spec) [Mass/Vol] 4.6 mmol/L 3.3-5.1 [facility] RBC Auto (Bld) [#/Vol]Ordere d By: Naila Suh on 03-21-2025 RBC (Bld) [#/Vol] 4.23 10*6/uL Low 4.6-6.2 [facility] Screening total cholesterol/ high density lipoprotein (HDL) cholesterol ratioOrdered By: Naila Suh on 03-21-2025 Cholesterol.total/Vero sterol in HDL [Mass ratio] 3.27 {ratio} [facility] Serum creatinine measurement (mass/volume)Ordered By: Naial Suh on 03-21-2025 Creatinine [Mass/Vol] 0.77 mg/dL 0.70-1.20 [facility] Serum globulin measurementOr dered By: Naila Suh on 03-21-2025 Globulin (S) [Mass/Vol] 2.5 g/dL 2.2-4.2 [facility] Serum glucose measurement (m ass/volume)Ordered By: Naila Suh on 03-21-2025 Glucose [Mass/Vol] 125 mg/dL High 70-99 [facility] Serum or plasma alanine drew otransferase (ALT) measurementOrdered By: Naila Lozano on 03-21-2025 ALT [Catalytic activity/Vol] 31 U/L <47 [facility] Serum or plasma albumin cem urement (mass/volume)Ordered By: Nailafiona Lozano on 03-21-2025 Albumin [Mass/Vol] 4.3 g/dL 3.4-4.8 [facility] Serum or plasma albumin/glob ulin mass ratioOrdered By: [facility] on 03-21-2025 Albumin/Globulin [Mass ratio] 1.7 {ratio} 0.9-2.4 [facility] Serum or plasma alkaline paulo sphatase measurementOrdered By: [facility] 03-21-2025 ALP [Catalytic activity/Vol] 90 U/L 40-129 [facility] Serum or plasma calcium cem urement (mass/volume)Ordered By: Nailafiona Lozano 03-21-2025 Calcium [Mass/Vol] 9.5 mg/dL 7.6-11.0 [facility] Serum or plasma cholesterol in HDL measurement (mass/volume)Ordered By: [facility] 03-21-2025 Cholesterol in HDL [Mass/Vol] 49 mg/dL >40 [facility] Comment on above: National Cholesterol Education Program (NCEP) guidelines:<40 mg/dL: Low HDL-cholesterol (major risk factor for CHD)>= 60 mg/dL: High HDL-cholesterol (negative risk factor for CHD)HDL-cholesterol is affected by a number of factors, e.g. smoking, exercise, hormones, sex and age. Serum or plasma cholesterol measurement (mass/volume)Ordered By: Naila Suh on 03-21-2025 Cholesterol [Mass/Vol] 159 mg/dL <201 [facility] Comment on above: Cholesterol level, D esirable <200 mg/dLBorderline high cholesterol 200-239 mg/dLHigh cholesterol >=240 mg/dLRecommendations of the NCEP Adult Treatment Panel for the following risk-cutoff thresholds for the [place] population. Serum or plasma urea nitroge n measurement (mass/volume)Ordered By: Naila Suh on 03-21-2025 Urea nitrogen [Mass/Vol] 12 mg/dL 4-19 [facility] Serum or plasma uric acid me asurement (mass/volume)Ordered By: Naila Suh on 03-21-2025 Urate [Mass/Vol] 5.6 mg/dL 3.5-7.2 [facility] Comment on above: The drugs N-Acetylcy steine and Metamizole may falsely depress this assay. Sodium levelOrdered By: Jian Suh on 03-21-2025 Sodium [Moles/Vol] 138 mmol/L 133-145 [facility] Total proteinOrdered By: Eriberto Suh on 03-21-2025 Protein [Mass/Vol] 6.8 g/dL 5.9-8.4 [facility] Triglycerides measurementOrd ered By: Naila Suh on 03-21-2025 Triglyceride [Mass/Vol] 162 mg/dL <199 [facility] Comment on above: The drugs N-Acetylcy steine and Metamizole may falsely depress this assay. Normal range: <150 mg/dLBorderline High: 150-199 mg/dLHigh: 200-499 mg/dLVery High: >500 mg/dL Uric Acidon 03-21-2025 URIC 5.6 mg/dL Normal 3.5-7.2 [facility] Comment on above: Result Comment: The drugs N-Acetylcysteine and Metamizole may falsely depress this assay. Performed By: #### L 500.4050, L500.4100, L501.9985, L100.0100, L501.1400 ####[facility] [address] [place], [address] White blood cell (WBC) count Ordered By: Naila Suh on 03-21-2025 WBC (Bld) [#/Vol] 4.9 10*3/uL 4.4-11.0 [facility] OT General Evaluationon 02-08 OT General Evaluation [facility] Occupational Therapy Health[address] [place] [address] / REHABILITATION SERVICES INITIAL EVALUATION MR#: [id number] Acct: [id number] Name: STANLEY CORRALES Rep #: [id number] : 1960 64 From: Clau Liu Referring Dr.: Dr. Reuben Parker DO Status: REG RCR Insurance: [facility] Date: SELF PAY INSURANCE Patient's Visit Information Visit Information Visit Information: STANLEY CORRALES is a 64 year old M, referred to Occupational Therapy by Dr. Reuben Parker DO, with a diagnosis of CVA, Infarct L thalamus. Date of Evaluation: 02/22/25 Occupational Therapist: Clau Liu Subjective Subjective: Stanley was admitted to hospital on 02/14/25 and found to have infarct in L thalamus resulting in LUE N/T and LUE ataxia. Stanley lives at home with his and reports improvements in his L hand the past week. Pt has been back to work but hasn't been doing any heavy lifting. 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 He has difficulty with fine motor tasks with left hand including invoices and manipulating coins. Pt reports gout in right foot currently that is improved today. ADLs Comments: Pt living at home with . He has returned to work in a limited capacity. 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 ROM ROM Comments: AROM WFL Strength Shoulder: L: 19.7, R 28.2 Elbow: biceps L 26.2; R 20.8. triceps L 27.2, R 30.1 Invasive Physician: R; 80#; L 80# Lateral Pinch: L 10; R 20 Tripod Pinch: L 7 R: 7 Sensation Stereognosis: Normal - Right Kinesthesia: Normal - Right Sensation Comments: able to sense 3.61 monofilament in L fingertips. Pt reports mild N/T in morning which improves throughout the day. Also reports mild residual N/T in face. Transfers Transfers: Indep Nine Hole Peg Right: 19 Left: 28 In-Hand Manipulation Finger to Palm Translation: Mild - Left Palm to Finger Translation: Mild - Left Shift: Mild - Left Rotation: Mild - Left Comments: [id number] test: mild ataxia with LUE Quick DASH-Disab of Arm,Shoulder Hand Quick DASH Score: 6.8175 Goals Goal:: Pt will demo increase in shoulder strength on Fit2 Peak Force by 10# to increase indep with ADLs and IADLs by dc Goal:: Pt will demo ability to manipulate 10 coins (qlkomu-[id number] translation) to inc pt's indep with money manipulation in the community by dc. Pt will demo improved L hand FMC as evidenced by improved score on 9-hole peg test by 8 seconds or greater for inc indep with IADLs by dc. Pt will demo improved L hand coordination to separate papers using L hand to inc indep with work tasks by dc. Rehabilitation General Assessment: Pt presents with decreased strength in L shoulder as well as decreased coordination and in-hand manipulation skills in L hand which are limiting his participation in work and IADLs. Skilled occupational therapy services are recommended 1x/week for up to 4 weeks to address needs and provide education to assist in reaching max rehab potential. Rehabilitation Potential: Excellent Anticipated Interventions Anticipated Interventions: Strengthening, Fine Motor Coord/Alejandro and Neuro Reeducation Visit Plan Frequency: 1x/Week Duration: 4 Weeks TEXT: Thank you for the opportunity to evaluate your patient. For Medicare and Medicare HMO plans, please review the plan of care and approve it. It will need to be FAXED BACK to us at [phone] for Medicare purposes. Please let me know if there are questions or concerns regarding this plan of care. Physician Signature: Date: 02/22/25 1314 CC: Dr. Reuben Parker, DO; No Primary Care Physician [place] Signed For Medicare only, by signing this I certify the plan of care. Physicians Signature Date Normal [facility] Alcohol, Blood (Medical)-Ser umon 02-15-2025 SERUM ETOH < 10.1 Normal <=10.0 [facility] Comment on above: Result Comment: This test is for medical purposes only. The legal definition of intoxication varies according to local law. Performed By: #### L 505.5000, L501.9985, L501.9100, L501.9520, L506.0200 #### [facility] Laboratory [address] [place], [address] Amphetamine detection with 1 000 ng/mL as cutoffOrdered By: eSbastian Mills on 02-15-2025 Amphetamines Screen method >1000 ng/mL Ql (U) Negative < 200 ng/mL [facility] Brain without Contraston Brain without Contrast [facility] Imaging Services [address] [place], [place] [address] Brain without Contrast MR#: [id number] Acct: [id number] Name: STANLEY CORRALES GARETH Rep #: [id number] : 1960 M 64 From: Matt Power i, DO PCP: Care Physician,No Primary Status: ADM LEANNE Study: Brain without Contrast Date of Exam: 02/15/25 Exam# [id number] Ordering Dr: Sebastian Maya DO PROCEDURE: Noncontrast CT of the brain. 02/15/2025 REASON FOR EXAM: Left hand and face paresthesias TECHNIQUE: Multi planar, multisequence MRI images of the brain were obtained without IV contrast. COMPARISON: Noncontrast CT brain 02/14/2025 FINDINGS: The bones of the calvarium are intact. Included upper cervical spinal cord unremarkable. The orbits, sella, and parasellar structures show no specific abnormality. Mastoid air cells are clear. Extracranial soft tissues grossly unremarkable. There are mucous retention cysts or polyps in the both maxillary sinuses, the largest on the left measuring 2.1 cm. No paranasal sinus air-fluid levels. Mild prominence of the cortical sulci, compatible with mild brain parenchymal atrophy. There is no extra-axial fluid collection or midline shift. Serrano-white matter differentiation is maintained. Major basilar intracranial flow voids are present. Basilar cisterns are clear. No acute abnormality of the posterior fossa is demonstrated. There is a 1 cm area of acute infarction involving the right thalamus. No large territorial infarction. No cerebellopontine angle mass lesion demonstrated. This does demonstrate some increased signal on the FLAIR sequence. There are mild scattered patchy areas of increased T2/FLAIR signal in the deep white matter structures of the cerebral hemispheres. MRI/Brain without Contrast IMPRESSION: Mild brain parenchymal atrophy. 1 cm area of acute infarction involving the right thalamus. This does demonstrate some increased signal on the FLAIR sequence. There are additional small scattered foci of increased T2/FLAIR signal in the deep white matter structures of the cerebral hemispheres, which may be on the basis of chronic small-vessel ischemic disease. [place] Alert: 1 cm acute infarct right thalamus. The critical information above was relayed directly by me by telephone to the patient's nurse, Silvia, on 02/15/2025 at 11:56 am with readback verification. Reading [facility] CC: Dr. Sebastian Maya DO; No Primary Care Physician Communications Administrator: Signed Normal [facility] Calculated very low density lipoprotein (VLDL) cholesterol measurementOrdered By: Sebastian Mills on 02-15-2025 Calculated very low density lipoprotein (VLDL) cholesterol measurement 35 mg/dL 5-40 [facility] Duplex ultrasound of carotid artery reportOrdered By: Reuben Jackson on 02-15-2025 Study report [facility] [address] [place] [address] Carotid Duplex Ultrasound 02/15/25 1048 MR#: [id number] Acct: [id number] Name: STANLEY CORRALES GARETH Rep #:[id number] : 1960 64 From: Reuben Miller Attending Dr: Dr. Reuben Parker DO Status: ADM LEANNE Ordering Dr: Sebastian Maya DO Date: 02/14/25 Location: [facility] Sex: M C Admitted: 02/14/25 Reason For Study Reason For Study: One Sided Facial Numbness Rt. Velocities/BP Lt. Velocities/BP Prox CCA 92.8/14.2 cm/sec. Prox CCA 101.6/17.5 cm/sec. Mid CCA 91.6/8.1 cm/sec. Mid CCA 89.7/17.1 cm/sec. Dist CCA 83.0/15.5 cm/sec. Dist CCA 66.7/16.6 cm/sec. Prox ICA 70.6/17.3 cm/sec. Prox ICA 65.8/18.5 cm/sec. Mid ICA 94.1/22.8 cm/sec. Mid ICA 78.7/23.0 cm/sec. Dist ICA 83.0/20.4 cm/sec. Dist ICA 118.3/34.9 cm/sec. Rt. ICA/CCA = 1.0. Lt. ICA/CCA = 1.3. Prox ECA 130.8/10.2 cm/sec. Prox ECA 117.7/14.5 cm/sec. Rt. Vert. 49.9/10.6 cm/sec. Lt. Vert. 49.7/9.1 cm/sec. Right Extracranial There is heterogeneous, irregular atherosclerotic plaque noted in the right common carotid artery. There is heterogeneous, irregular atherosclerotic plaque noted in the right internal carotid artery. There is homogeneous, smooth atherosclerotic plaque noted in the right external carotid artery. Antegrade flow is noted in the right vertebral artery. Left Extracranial There is heterogeneous, irregular atherosclerotic plaque noted in the left common carotid artery. There is heterogeneous, irregular atherosclerotic plaque noted in the left internal carotid artery. The distal left internal carotid artery is not well visualized. The left external carotid artery is not well visualized. Antegrade flow is noted in the left vertebral artery. Procedure Carotid Duplex 22416. This is a Carotid Duplex examination using B-mode, color flow and specral Doppler. The exam was diagnostic. Exam performed portable in patient room. VL/Carotid Duplex Ultrasound Interpretation Summary Mild (<50%) stenosis right extracranial internal carotid. Mild (<50%) stenosis left extracranial internal carotid. Patent and antegrade vertebrals bilaterally. Ordering Physician: Sebastian Maya Referring Physician: N/A Performed By: Jesse Gonzales, RVT 02/15/25 1348 Date _ Reuben Jackson MD CC: Dr. Sebastian Maya DO; Dr. Reuben Parker DO; No Primary Care Physician ~ Date Dictated: 02/15/25 1048 Date Transcribed: 02/15/25 1348 Communications Administrator: Signed [facility] Work Phone: Echocardiogram study reportO rdered By: Pascual Bustos on 02-15-2025 Study report [facility] [address] [place] [address] Echo Complete W/ Contrast 02/15/25 0834 MR#: [id number] Acct: [id number] Name: STANLEY CORRALES GARETH Rep #:[id number] : 1960 64 From: Pascual Bustos MD Attending Dr: Dr. Reuben Parker DO Status: ADM LEANNE Ordering Dr: Sebastian Maya DO Date: 02/14/25 Location: [facility] Sex: M C Admitted: 02/14/25 Reason For Study Reason For Study: TIA/CVA Procedure This was a 2D Doppler, Color Flow transthoracic echocardiogram. The study was technically difficult. Contrast injection was performed. Exam performed portable in patient room. Left Ventricle Normal size and thickness. The LV systolic function is normal. EF is 65 %. Normal diastololic function. Right Ventricle Normal right ventricle. Atria The left atrium is mildly enlarged. Normal right atrium. Bubble contrast study is negative for PFO/ASD. Mitral Valve Trivial mitral valve insufficiency. Tricuspid Valve Trivial tricuspid valve insufficiency. Unable to estimate RV systolic pressure due to insufficient tricuspid regurgitant envelope. Aortic Valve Trisinus/trileaflet aortic valve. Pulmonic Valve The pulmonic valve is not well visualized. Great Vessels Normal sized aortic root. Pericardium/Pleural No pericardial effusion. Medication Diluted definity 2ml given slow IV push to enhance endocardial definition. Performed a rapid injection of agitated mix of 9 cc saline and 1cc air to assess for atrial septal defect. MMode/2D Measurements & Calculations LVIDd: 5.5 cm IVSd: 1.1 cm Ao root diam: 3.4 cm LVIDs: 3.6 cm LVPWd: 1.1 cm RVDd: 4.1 cm FS: 34.7 % LAV(MOD-bp): 64.5 ml LVAd ap4: 43.0 cm2 SV(MOD-sp4): 101.0 ml LAV(MOD-bp) Indexed: 27.5 ml/m2 LVLd ap4: 9.1 cm SI(MOD-sp4): 43.1 ml/m2 LAV(MOD-sp2): 67.9 ml EDV(MOD-sp4): 167.2 ml LAV(MOD-sp4): 60.9 ml EDV(sp4-el): 172.3 ml LVAs ap4: 25.4 cm2 LVLs ap4: 7.8 cm ESV(MOD-sp4): 66.2 ml ESV(sp4-el): 70.5 ml EF(MOD-sp4): 60.4 % EF(sp4-el): 59.1 % SV(sp4-el): 101.9 ml LA A4 area: 20.5 cm2 LA dimension(2D): 4.3 cm RA A4 area: 16.2 cm2 TAPSE: 2.7 cm Time Measurements MV dec time: 0.23 sec Doppler Measurements & Calculations MV E max eloy: 84.0 cm/sec Lat Peak E' Eloy: 8.6 cm/sec Med Peak E' Eloy: 8.9 cm/sec MV A max eloy: 82.8 cm/sec E/E' lat: 9.7 E/E' med: 9.4 MV E/A: 1.0 MV V2 max: 102.2 cm/sec MV P1/2t max eloy: 87.1 cm/sec Ao V2 max: 137.7 cm/sec MV max P.2 mmHg MV P1/2t: 77.4 msec Ao max P.6 mmHg MV V2 mean: 52.3 cm/sec MV dec slope: 329.8 cm/sec2 Ao V2 mean: 96.0 cm/sec MV mean P.3 mmHg MVA(P1/2t): 2.8 cm2 Ao mean P.3 mmHg MV V2 VTI: 35.4 cm Ao V2 VTI: 29.1 cm AV (velocity ratio): 0.78 LV V1 max: 95.8 cm/sec MR max eloy: 559.1 cm/sec PA V2 max: 120.4 cm/sec LV V1 max P.7 mmHg MR max P.0 mmHg PA V2 mean: 81.1 cm/sec LV V1 mean P.1 mmHg LV V1 mean: 66.8 cm/sec LV V1 VTI: 22.8 cm ECHO/Echo Complete W/ Contrast Interpretation Summary The LV systolic function is normal. EF is 65 %. The left atrium is mildly enlarged. Bubble contrast study is negative for PFO/ASD. Ordering Physician: Sebastian Maya Performed By: Jony Trejo RCS 02/15/25 1145 Date _ Pascual Bustos MD CC: Dr. Sebastian Maya DO; Dr. Reuben Parker DO; No Primary Care Physician ~ Date Dictated: 02/15/25833 Date Transcribed: 02/15/251144 Communications Administrator: Signed [facility] Work Phone: Folates,Serum (Folic Acid)on 02-15-2025 FOLATES,SERUM 25.70 ng/mL Normal 4.60-34.80 [facility] Comment on above: Result Comment: Hemo lysis, Results will be affected, Requires Recollection. Performed By: #### L 505.5000, L501.9985, L501.9100, L501.9520, L506.0200 #### [facility] Laboratory [address] [place], [address] Hemoglobin A1con 02-15-2025 HbA1c (Bld) [Mass fraction] 5.8 % High <=5.6 [facility] Comment on above: Result Comment: Norm al < 5.7 % Prediabetic 5.7 - 6.4 % Diabetic >or= 6.5 % Please note range changes. Performed By: #### L 505.5000, L501.9985, L501.9100, L501.9520, L506.0200 #### [facility] [address] [place], [address] L499.0042on 02-15-2025 Trop T High Sen 15 ng/L Normal <=22 [facility] Comment on above: Performed By: #### L 499.0042 ####[facility] [address] [place], [address] L499.0043on 02-15-2025 Trop T High Sen 17 ng/L Normal <=22 [facility] Comment on above: Performed By: #### L 499.0043 ####[facility] [address] [place], [address] LDL calc ser/plasOrdered By: Sebastian Mills on 02-15-2025 Cholesterol in LDL [Mass/Vol] 201 mg/dL [facility] Comment on above: Jlyulfvlow=027-609 m g/dL & Higher Olpb=354 mg/dL or greater Lipid Profileon 02-15-2025 CHOL:HDL 5.99 Normal [facility] Comment on above: Performed By: #### L 500.4100 ####[facility] [address] [place], [address] Cholesterol [Mass/Vol] 284 mg/dL High <=200 [facility] Comment on above: Result Comment: Chol esterol level, Desirable <200 mg/dL Borderline high cholesterol 200-239 mg/dL High cholesterol >=240 mg/dL Recommendations of the NCEP Adult Treatment Panel for the following risk-cutoff thresholds for the [place] population. Performed By: #### L 500.4100 ####[facility] [address] [place], [address] Cholesterol in HDL [Mass/Vol] 47 mg/dL Normal [facility] Comment on above: Result Comment: Marlen onal Cholesterol Education Program (NCEP) guidelines: <40 mg/dL: Low HDL-cholesterol (major risk factor for CHD) >= 60 mg/dL: High HDL-cholesterol (negative risk factor for CHD) HDL-cholesterol is affected by a number of factors, e.g. smoking, exercise, hormones, sex and age. Performed By: #### L 500.4100 ####[facility] [address] [place], [address] Cholesterol in LDL [Mass/Vol] 201 mg/dL Normal [facility] Comment on above: Result Comment: Bord xodain=739-234 mg/dL Higher Seno=979 mg/dL or greater Performed By: #### L 500.4100 ####[facility] [address] [place], [address] Cholesterol in VLDL [Mass/Vol] 35 mg/dL Normal 5-40 [facility] Comment on above: Performed By: #### L 500.4100 ####[facility] [address] [place], [address] Triglyceride [Mass/Vol] 177 mg/dL Normal [facility] Comment on above: Result Comment: The drugs N-Acetylcysteine and Metamizole may falsely depress this assay. Normal range: <150 mg/dL Borderline High: 150-199 mg/dL High: 200-499 mg/dL Very High: >500 mg/dL Performed By: #### L 500.4100 ####[facility] [address] [place], [address] MR/CON.PCM.NEon 02-15-2025 MR/CON.PCM.NE [facility] Medical Records Department [address] [place] [address] Consultation - Neurology 02/15/25 1306 MR#: [id number] Acct: [id number] Name: STANLEY CORRALES Rep #: [id number] : 1960 64 From: Erin Prabhakar MD PCP: Care Physician,No Primary Status:ADM LEANNE Location: [place] [address] Assessment and Plan: Stroke Assessment/Plan STANLEY CORRALES is a 64 M with a history of essential hypertension, hyperlipidemia, obesity, has numbness of left face and arm since yesterday Neurological examination shows non focal examination. Neuroimaging shows CTA: negative, MRI: R thalamic stroke. ECHO = EF 65%, LA mild enlargement. Right thalamic stroke suspect small vessel disease Plan Continue ASA. Add Plavix. DAPT for 21 days then ASA alone HTN: Permissive hypertension acutely and senior living will need it under control HLD: Target LDL 70. Adjust stain to keep LDL in target range Sleep study as out patient PT, OT evaluation Thanks for consultation. Spent 70 min in evaluation and management HPI Consult Data Date of Consult: 02/15/25 HPI Narrative HPI Narrative: STANLEY CORRALES, is a 64 M with a past medical history of essential hypertension, hyperlipidemia, obesity, has numbness of the left hand and face especially at the lips. It started yesterday in the afternoon and is persistent. He denies having weakness, slurred speech. He denies other symptoms. [facility] Medical History Gout Knee pain Hypertension Home Medications ???Medication ???Instructions ???Recorded ???Last Taken ???Type rosuvastatin 20 mg tablet (Crestor) 20 mg PO DAILY 09/22/16 5 History amlodipine 5 mg tablet 5 mg PO QDAY 07/07/24 02/13/25 His tory olmesartan 20 mg tablet 20 mg PO QDAY 07/07/24 02/13/25 Hi story allopurinol 100 mg tablet 100 mg PO Q12H 11/01/24 02/13/25 H istory Allergy/AdvReac Type Severity Reaction Status Date / Time No Known Allergies Allergy Verified 02/15/25 00:45 Surgical History History of hernia surgery Social History Smoking Status: Never smoker alcohol intake: current Vital Signs Vital Signs Vital Signs: 02/14/25 20:22 02/14/25 20:32 02/14/25 20:32 Temperature 98.0 F Temperature Source Temporal Pulse Rate 81 79 Respiratory Rate 18 16 Respiratory Effort Respiratory Depth Respiratory Pattern Blood Pressure 191/89 H 185/93 H Blood Pressure Mean 123 123 Blood Pressure Source Blood Pressure Position Blood Pressure Location Pulse Ox 97 95 Oxygen Delivery Method Room Air Room Air Room Air 02/14/25 20:32 02/14/25 21:05 02/14/25 21:30 Temperature Temperature Source Pulse Rate 81 86 76 Respiratory Rate 16 18 18 Respiratory Effort Respiratory Depth Respiratory Pattern Blood Pressure 185/93 H 167/99 H 136/71 H Blood Pressure Mean 123 121 92 Blood Pressure Source Blood Pressure Position Blood Pressure Location Pulse Ox 94 98 99 Oxygen Delivery Method Room Air Room Air Room Air 02/14/25 22:00 02/14/25 22:30 02/14/25 23:00 Temperature Temperature Source Pulse Rate 71 72 75 Respiratory Rate 18 18 18 Respiratory Effort Respiratory Depth Respiratory Pattern Blood Pressure 168/97 H 168/77 H 172/96 H Blood Pressure Mean 120 107 121 Blood Pressure Source Blood Pressure Position Blood Pressure Location Pulse Ox 99 99 95 Oxygen Delivery Method Room Air Room Air 02/14/25 23:54 02/15/25 00:26 02/15/25 00:26 Temperature 98 F 98.3 F Temperature Source Oral Pulse Rate 75 79 Respiratory Rate 18 16 Respiratory Effort Normal Non-Labored Respiratory Depth Normal Respiratory Pattern Normal Blood Pressure 172/96 H 170/95 H Blood Pressure Mean 121 120 Blood Pressure Source Monitor Blood Pressure Position Semi-Fowlers Blood Pressure Location Right Arm Pulse Ox 97 98 Oxygen Delivery Method Room Air Room Air 02/15/25 04:25 02/15/25 04:25 02/15/25 08:15 Temperature 97.8 F 98.2 F Temperature Source Oral Oral Pulse Rate 70 73 Respiratory Rate 16 17 Respiratory Effort Normal Non-Labored Respiratory Depth Normal Respiratory Pattern Normal Blood Pressure 155/84 H 183/95 H Blood Pressure Mean 107 124 Blood Pressure Source Monitor Monitor Blood Pressure Position Supine Semi-Fowlers Blood Pressure Location Right Arm Right Arm Pulse Ox 98 97 Oxygen Delivery Method Room Air Room Air Room Air 02/15/25 08:43 Temperature Temperature Source Pulse Rate Respiratory Rate Respiratory Effor (more content not included)... Normal [facility] Magnetic resonance imaging r eportOrdered By: Matt Almonte on 02-15-2025 Study report [facility] Imaging Services [address] [place] [address] Brain without Contrast MR#: [id number] Acct: [id number] Name: STANLEY CORRALES GARETH Rep #: [id number] : 1960 M 64 From: And stacia Almonte DO PCP: Care Physician,No Primary Status: ADM LEANNE Study:Brain without Contrast Date of Exam: 02/15/25 Exam# [id number] Ordering Dr: Sebastian Reyes DO PROCEDURE: Noncontrast CT of the brain. 02/15/2025 REASON FOR EXAM: Left hand and face paresthesias TECHNIQUE: Multi planar, multisequence MRI images of the brain were obtained without IV contrast. COMPARISON: Noncontrast CT brain 02/14/2025 FINDINGS: The bones of the calvarium are intact. Included upper cervical spinal cord unremarkable. The orbits, sella, and parasellar structures show no specific abnormality. Mastoid air cells are clear. Extracranial soft tissues grossly unremarkable. There are mucous retention cysts or polyps in the both maxillary sinuses, the largest on the left measuring 2.1 cm. No paranasal sinus air-fluid levels. Mild prominence of the cortical sulci, compatible with mild brain parenchymal atrophy. There is no extra-axial fluid collection or midline shift. Serrano-white matter differentiation is maintained. Major basilar intracranial flow voids are present. Basilar cisterns are clear. No acute abnormality of the posterior fossa is demonstrated. There is a 1 cm area of acute infarction involving the right thalamus. No large territorial infarction. No cerebellopontine angle mass lesion demonstrated. This does demonstrate some increased signal on the FLAIR sequence. There are mild scattered patchy areas of increased T2/FLAIR signal in the deep white matter structures of the cerebral hemispheres. MRI/Brain without Contrast IMPRESSION: Mild brain parenchymal atrophy. 1 cm area of acute infarction involving the right thalamus. This does demonstrate some increased signal on the FLAIR sequence. There are additional small scattered foci of increased T2/FLAIR signal in the deep white matter structures of the cerebral hemispheres, which may be on the basis of chronic small-vessel ischemic disease. [place] Alert: 1 cm acute infarct right thalamus. The critical information above was relayed directly by me by telephone to the patient's nurse, Silvia, on 02/15/2025 at 11:56 am with readback verification. Reading Location: [facility] CC: Dr. Sebastian Maya DO; No Primary Care Physician ~ Communications Administrator: Signed [facility] No Panel InformationOrdered By: Sebastian Mills on 02-15-2025 Urine Buprenorphine Qualitative Negative < 200 ng/mL [facility] Urine Oxycodone Screen Negative < 100 ng/mL [facility] Quantitative urine opiates m easurementOrdered By: Sebastian Mills on 02-15-2025 Opiates Ql (U) Negative < 300 ng/mL [facility] Screening total cholesterol/ high density lipoprotein (HDL) cholesterol ratioOrdered By: Sebastian Mills on 02-15-2025 Cholesterol.total/Vero sterol in HDL [Mass ratio] 5.99 {ratio} [facility] Screening urine fentanyl jamison surementOrdered By: Sebastian Mills on 02-15-2025 fentaNYL Screen Ql (U) Negative [facility] Serum or plasma cholesterol in HDL measurement (mass/volume)Ordered By: Sebastian Mills on 02-15-2025 Cholesterol in HDL [Mass/Vol] 47 mg/dL >40 [facility] Comment on above: National Cholesterol Education Program (NCEP) guidelines:<40 mg/dL: Low HDL-cholesterol (major risk factor for CHD)>= 60 mg/dL: High HDL-cholesterol (negative risk factor for CHD)HDL-cholesterol is affected by a number of factors, e.g. smoking, exercise, hormones, sex and age. Serum or plasma cholesterol measurement (mass/volume)Ordered By: Sebastian Mills on 02-15-2025 Cholesterol [Mass/Vol] 284 mg/dL High <201 [facility] Comment on above: Cholesterol level, D esirable <200 mg/dLBorderline high cholesterol 200-239 mg/dLHigh cholesterol >=240 mg/dLRecommendations of the NCEP Adult Treatment Panel for the following risk-cutoff thresholds for the [place] population. Triglycerides measurementOrd ered By: Sebastian Mills on 02-15-2025 Triglyceride [Mass/Vol] 177 mg/dL <199 [facility] Comment on above: The drugs N-Acetylcy steine and Metamizole may falsely depress this assay. Normal range: <150 mg/dLBorderline High: 150-199 mg/dLHigh: 200-499 mg/dLVery High: >500 mg/dL Troponin T.cardiac [Mass/vol ume] in Serum or Plasma by High sensitivity methodOrdered By: Quirino Briggs on 02-15-2025 Troponin T.cardiac High sensitivity method [Mass/Vol] 17 ng/L <22 [facility] Urine Drug Screen (VISTA)on 02-15-2025 AMPHETAMINES Negative Normal <1000 ng/mL [facility] Comment on above: Performed By: #### L 505.5000, L501.9985, L501.9100, L501.9520, L506.0200 ####[facility] [address] [place] [id number] BARBITIURATES Negative Normal < 200 ng/mL [facility] Comment on above: Performed By: #### L 505.5000, L501.9985, L501.9100, L501.9520, L506.0200 ####[facility] [address] [place], [place], [phone] BENZODIAZIPINE Negative Normal < 200 ng/mL [facility] Comment on above: Performed By: #### L 505.5000, L501.9985, L501.9100, L501.9520, L506.0200 ####[facility] [address] [place], [place], [id number] BUP Ur Drug Scr Negative Normal < 200 ng/mL [facility] Comment on above: Performed By: #### L 505.5000, L501.9985, L501.9100, L501.9520, L506.0200 ####[facility] [address] [place] [address] COCAINE Negative Normal < 300 ng/mL [facility] Comment on above: Performed By: #### L 505.5000, L501.9985, L501.9100, L501.9520, L506.0200 ####[facility] [address] [place] [address] Fentanyl Negative Normal [facility] Comment on above: Performed By: #### L 505.5000, L501.9985, L501.9100, L501.9520, L506.0200 ####[facility] [address] [place] [address] METHADONE Negative Normal < 300 ng/mL [facility] Comment on above: Performed By: #### L 505.5000, L501.9985, L501.9100, L501.9520, L506.0200 ####[facility] [address] [place] [address] OPIATES Negative Normal < 300 ng/mL [facility] Comment on above: Performed By: #### L 505.5000, L501.9985, L501.9100, L501.9520, L506.0200 ####[facility] [address] [place] [address] OXYCODONE Negative Normal < 100 ng/mL [facility] Comment on above: Performed By: #### L 505.5000, L501.9985, L501.9100, L501.9520, L506.0200 ####[facility] [address] [place] [address] PCP Negative Normal < 25 ng/mL [facility] Comment on above: Performed By: #### L 505.5000, L501.9985, L501.9100, L501.9520, L506.0200 ####[facility] [address] [place], [address] THC Negative Normal < 50 ng/mL [facility] Comment on above: Performed By: #### L 505.5000, L501.9985, L501.9100, L501.9520, L506.0200 ####[facility] [address] [place], [address] Urine benzodiazepine levelOr dered By: Sebastian Mills on 02-15-2025 Benzodiazepines Ql (U) Negative < 200 ng/mL [facility] Urine cocaine levelOrdered B y: Sebastian Mills on 02-15-2025 Cocaine Ql (U) Negative < 300 ng/mL [facility] Urine kgnco-5-bdabnhasusnknj abinol (THC) measurementOrdered By: Sebastian Mills on 02-15-2025 Cannabinoids Screen Ql (U) Negative < 50 ng/mL [facility] Urine phencyclidine (PCP) de tectionOrdered By: Sebastian Mills on 02-15-2025 Phencyclidine Ql (U) Negative < 25 ng/mL [facility] Vitamin B12on 02-15-2025 Cobalamin (Vitamin B12) [Mass/Vol] 476 pg/mL Normal 180-914 [facility] Comment on above: Performed By: #### L 503.0106 #### [facility] Laboratory [address] [place], [address] 12 Lead EKGon 02-14-2025 12 Lead EKG [facility] Cardiovascular Services [address] [place] [address] 12 Lead EKG 02/14/254 MR#: [id number] Acct: [id number] Name: STANLEY CORRALES GARETH Rep #: [id number] : 1960 64 From: Ludwig Sanford MD Attending Dr: Dr. Reuben Parker DO Status: DIS LEANNE Ordering Dr: Quirino Briggs DO Date: 02/14/25 Location: U Sex: M C Admitted: 02/14/25 Test Reason : NEURO Blood Pressure : */* mmHG Vent. Rate : 75 BPM Atrial Rate : 75 BPM P-R Int : 154 ms QRS Dur : 104 ms QT Int : 396 ms P-R-T Axes : 45 -20 18 degrees QTcB Int : 442 ms Normal sinus rhythm Moderate voltage criteria for LVH, may be normal variant ( R in aVL , Slade product ) Borderline ECG Confirmed by Ludwig Sanford ([id number]), editor newspaper NAOMI KOEHLER ([id number]) on 02/16/2025 12:15:09 PM Referred By: Confirmed By: Ludwig Sanford 02/16/25 1215 Date Ludwig Sanford MD CC: Dr. Reuben Parker, DO; Dr. Quirino Briggs, DO; No Primary Care Physician Signed Normal [facility] Absolute lymphocyte countOrd ered By: Quirino Briggs on 02-14-2025 Lymphocytes Auto (Unsp spec) [#/Vol] 2.09 10*3/uL 0.83-4.51 [facility] Absolute neutrophil countOrd ered By: Quirino Briggs on 02-14-2025 Neutrophils (Bld) [#/Vol] 2.7 10*3/uL 2.0-7.7 [facility] Activated partial thrombopla stin time (aPTT) in platelet poor plasma by coagulation aOrdered By: Quirino Briggs on 02-14-2025 aPTT Coag (PPP) [Time] 24.3 s 24.1-36.2 [facility] Anion gap in Serum or Plasma Ordered By: Quirino Briggs on 02-14-2025 Anion gap [Moles/Vol] 15 mmol/L 5- [facility] Automated lymphocyte count a s percentage of total leukocytesOrdered By: Quirino Briggs on 02-14-2025 Lymphocytes/100 WBC Auto (Unsp spec) 37.3 % - [facility] BUN/creatinine ratioOrdered By: Quirino Briggs on 02-14-2025 Urea nitrogen/Creatinine [Mass ratio] 11.4 mg/mg - [facility] Basic Metabolic Profile (BMP )on 02-14-2025 BUN/CRE 11.4 RATIO Normal 10-20 [facility] Comment on above: Performed By: #### L 100.0100, L500.2500, L300.3900, L501.4021, L300.4310 ####[facility] [address] [place], [address] Calcium [Mass/Vol] 9.7 mg/dL Normal 7.6-11.0 [facility] Comment on above: Performed By: #### L 100.0100, L500.2500, L300.3900, L501.4021, L300.4310 ####[facility] [address] [place], [address] Chloride [Moles/Vol] 103 mmol/L Normal 98-108 [facility] Comment on above: Performed By: #### L 100.0100, L500.2500, L300.3900, L501.4021, L300.4310 ####[facility] [address] [place], [address] CO2 [Moles/Vol] 22.5 mmol/L Normal 21.0-32.0 [facility] Comment on above: Performed By: #### L 100.0100, L500.2500, L300.3900, L501.4021, L300.4310 ####[facility] [address] [place], [address] Creatinine [Mass/Vol] 0.77 mg/dL Normal 0.70-1.20 [facility] Comment on above: Performed By: #### L 100.0100, L500.2500, L300.3900, L501.4021, L300.4310 ####[facility] [address] [place], [address] ECRCL 127.11 ml/min Normal 50-250 [facility] Comment on above: Performed By: #### L 100.0100, L500.2500, L300.3900, L501.4021, L300.4310 ####[facility] [address] [place], [address] GAP 15 Normal 5-15 [facility] Comment on above: Performed By: #### L 100.0100, L500.2500, L300.3900, L501.4021, L300.4310 ####[facility] [address] [place], [address] GFR/1.73 sq M.predicted among non-blacks MDRD (S/P/Bld) [Vol rate/Area] 100 mL/min/{1.73_m2} Normal >60 [facility] Comment on above: Result Comment: mL/m in/1.73m2 CKD-EPI Creatinine Equation (2020) Performed By: #### L 100.0100, L500.2500, L300.3900, L501.4021, L300.4310 ####[facility] [address] [place], [address] Glucose [Mass/Vol] 105 mg/dL High 70-99 [facility] Comment on above: Performed By: #### L 100.0100, L500.2500, L300.3900, L501.4021, L300.4310 ####[facility] [address] [place], [address] Potassium [Moles/Vol] 3.8 mmol/L Normal 3.3-5.1 [facility] Comment on above: Performed By: #### L 100.0100, L500.2500, L300.3900, L501.4021, L300.4310 ####[facility] [address] [place], [address] Sodium [Moles/Vol] 140 mmol/L Normal 133-145 [facility] Comment on above: Performed By: #### L 100.0100, L500.2500, L300.3900, L501.4021, L300.4310 ####[facility] [address] [place], [address] Urea nitrogen [Mass/Vol] 9 mg/dL Normal 4-19 [facility] Comment on above: Performed By: #### L 100.0100, L500.2500, L300.3900, L501.4021, L300.4310 ####[facility] [address] [place], [address] Basophil percentageOrdered B y: Remus Ungur on 02-14-2024 Basophils/100 WBC (Bld) 0.7 % 0-1 [facility] CBC W/Diff, Automatedon Absolute Lymph 2.09 X10 3/uL Normal 0.83-4.51 [facility] Comment on above: Performed By: #### L 100.0100, L500.2500, L300.3900, L501.4021, L300.4310 ####[facility] [address] [place], [address] Absolute Neut 2.7 X10 3/uL Normal 2.0-7.7 [facility] Comment on above: Performed By: #### L 100.0100, L500.2500, L300.3900, L501.4021, L300.4310 ####[facility] [address] [place], [address] Basophils/100 WBC (Bld) 0.7 % Normal 0-1 [facility] Comment on above: Performed By: #### L 100.0100, L500.2500, L300.3900, L501.4021, L300.4310 ####[facility] [address] [place], [address] Eosinophils/100 WBC (Bld) 2.1 % Normal 0-5 [facility] Comment on above: Performed By: #### L 100.0100, L500.2500, L300.3900, L501.4021, L300.4310 ####[facility] [address] [place], [address] Erythrocyte distribution width (RBC) [Ratio] 12.5 % Normal 11.6-14.6 [facility] Comment on above: Performed By: #### L 100.0100, L500.2500, L300.3900, L501.4021, L300.4310 ####[facility] [address] [place], [address] Hematocrit (Bld) [Volume fraction] 42.2 % Normal 40-54 [facility] Comment on above: Performed By: #### L 100.0100, L500.2500, L300.3900, L501.4021, L300.4310 ####[facility] [address] [place], [address] Hemoglobin (Bld) [Mass/Vol] 14.5 g/dL Normal 13.0-16.5 [facility] Comment on above: Performed By: #### L 100.0100, L500.2500, L300.3900, L501.4021, L300.4310 ####[facility] [address] [place], [address] IG% 0.700 Normal 0.0-0.9 [facility] Comment on above: Result Comment: IG% - Immature Granulocytes (promyelocytes, myelocytes and metamyelocytes) > 1% indicates that a LEFT SHIFT is Present. Performed By: #### L 100.0100, L500.2500, L300.3900, L501.4021, L300.4310 ####[facility] [address] [place], [address] Lymphocytes/100 WBC (Bld) 37.3 % Normal 19-41 [facility] Comment on above: Performed By: #### L 100.0100, L500.2500, L300.3900, L501.4021, L300.4310 ####[facility] [address] [place], [address] MCH (RBC) [Entitic mass] 32.2 pg High 27.0-32.0 [facility] Comment on above: Performed By: #### L 100.0100, L500.2500, L300.3900, L501.4021, L300.4310 ####[facility] [address] [place], [address] MCHC (RBC) [Mass/Vol] 34.4 g/dL Normal 32-36 [facility] Comment on above: Performed By: #### L 100.0100, L500.2500, L300.3900, L501.4021, L300.4310 ####[facility] [address] [place], [address] MCV (RBC) [Entitic vol] 93.8 fL Normal 80-94 [facility] Comment on above: Performed By: #### L 100.0100, L500.2500, L300.3900, L501.4021, L300.4310 ####[facility] [address] [place], [address] Monocytes/100 WBC (Bld) 10.4 % High 0-10 [facility] Comment on above: Performed By: #### L 100.0100, L500.2500, L300.3900, L501.4021, L300.4310 ####[facility] [address] [place], [address] Neutrophils/100 WBC (Bld) 48.8 % Normal 47-70 [facility] Comment on above: Performed By: #### L 100.0100, L500.2500, L300.3900, L501.4021, L300.4310 ####[facility] [address] [place], [address] Nucleated RBC (Bld) [#/Vol] 0 10*3/uL Normal 0-5 [facility] Comment on above: Performed By: #### L 100.0100, L500.2500, L300.3900, L501.4021, L300.4310 ####[facility] [address] [place], [address] Platelet mean volume (Bld) [Entitic vol] 8.4 fL Normal 6.2-12.0 [facility] Comment on above: Performed By: #### L 100.0100, L500.2500, L300.3900, L501.4021, L300.4310 ####[facility] [address] [place], [address] Platelets (Bld) [#/Vol] 277 10*3/uL Normal 150-450 [facility] Comment on above: Performed By: #### L 100.0100, L500.2500, L300.3900, L501.4021, L300.4310 ####[facility] [address] [place], [address] RBC (Bld) [#/Vol] 4.50 10*6/uL Low 4.6-6.2 [facility] Comment on above: Performed By: #### L 100.0100, L500.2500, L300.3900, L501.4021, L300.4310 ####[facility] [address] [place], [address] RDW SD 43.1 fl Normal 35.1-43.9 [facility] Comment on above: Performed By: #### L 100.0100, L500.2500, L300.3900, L501.4021, L300.4310 ####[facility] [address] [place], [address] WBC (Bld) [#/Vol] 5.6 10*3/uL Normal 4.4-11.0 [facility] Comment on above: Performed By: #### L 100.0100, L500.2500, L300.3900, L501.4021, L300.4310 ####[facility] [address] [place], [address] Carbon dioxide, total [Moles /volume] in Central venous bloodOrdered By: Quirino Briggs on 02-14-2025 CO2 [Moles/Vol] 22.5 mmol/L 21.0-32.0 [facility] Carotid Duplex Ultrasoundon 02-14-2025 Carotid Duplex Ultrasound [facility] [address] [place] [address] Carotid Duplex Ultrasound 02/15/25 1048 MR#: [id number] Acct: [id number] Name: STANLEY CORRALES GARETH Rep #: [id number] : 1960 64 From: Reuben Jackson MD Attending Dr: Dr. Reuben Parker, Status: ADM LEANNE Ordering Dr: Sebastian Maya DO Date: 02/14/25 Location: [facility] Sex: M C Admitted: 02/14/25 Reason For Study Reason For Study: One Sided Facial Numbness Rt. Velocities/BP Lt. Velocities/BP Prox CCA 92.8/14.2 cm/sec. Prox CCA 101.6/17.5 cm/sec. Mid CCA 91.6/8.1 cm/sec. Mid CCA 89.7/17.1 cm/sec. Dist CCA 83.0/15.5 cm/sec. Dist CCA 66.7/16.6 cm/sec. Prox ICA 70.6/17.3 cm/sec. Prox ICA 65.8/18.5 cm/sec. Mid ICA 94.1/22.8 cm/sec. Mid ICA 78.7/23.0 cm/sec. Dist ICA 83.0/20.4 cm/sec. Dist ICA 118.3/34.9 cm/sec. Rt. ICA/CCA = 1.0. Lt. ICA/CCA = 1.3. Prox ECA 130.8/10.2 cm/sec. Prox ECA 117.7/14.5 cm/sec. Rt. Vert. 49.9/10.6 cm/sec. Lt. Vert. 49.7/9.1 cm/sec. Right Extracranial There is heterogeneous, irregular atherosclerotic plaque noted in the right common carotid artery. There is heterogeneous, irregular atherosclerotic plaque noted in the right internal carotid artery. There is homogeneous, smooth atherosclerotic plaque noted in the right external carotid artery. Antegrade flow is noted in the right vertebral artery. Left Extracranial There is heterogeneous, irregular atherosclerotic plaque noted in the left common carotid artery. There is heterogeneous, irregular atherosclerotic plaque noted in the left internal carotid artery. The distal left internal carotid artery is not well visualized. The left external carotid artery is not well visualized. Antegrade flow is noted in the left vertebral artery. Procedure Carotid Duplex 32929. This is a Carotid Duplex examination using B-mode, color flow and specral Doppler. The exam was diagnostic. Exam performed portable in patient room. VL/Carotid Duplex Ultrasound Interpretation Summary Mild (<50%) stenosis right extracranial internal carotid. Mild (<50%) stenosis left extracranial internal carotid. Patent and antegrade vertebrals bilaterally. Ordering Physician: Sebastian Maya Referring Physician: N/A Performed By: Jesse Gonzales, T 02/15/25 1348 Date Reuben Jackson MD CC: Dr. Sebastian Maya DO; Dr. Reuben Parker DO; No Primary Care Physician Date Dictated: 02/15/25 1048 Date Transcribed: 02/15/25 1348 Communications Administrator: Signed [facility] Chloride assayOrdered By: Mey Briggs on 02-14-2025 Chloride [Moles/Vol] 103 mmol/L 98-108 [facility] Echo Complete W/ Contraston 02-14-2025 Echo Complete W/ Contrast [facility] [place] [address] [place] [address] Echo Complete W/ Contrast 02/15/25 0834 MR#: [id number] Acct: [id number] Name: STANLEY CORRALES GARETH Rep #: [id number] : 1960 64 From: Pascual Bustos MD Attending Dr: Dr. Reuben Parker, DO Status: ADM LEANNE Ordering Dr: Sebastian Maya DO Date: 02/14/25 Location: [facility] Sex: M C Admitted: 02/14/25 Reason For Study Reason For Study: TIA/CVA Procedure This was a 2D Doppler, Color Flow transthoracic echocardiogram. The study was technically difficult. Contrast injection was performed. Exam performed portable in patient room. Left Ventricle Normal size and thickness. The LV systolic function is normal. EF is 65 %. Normal diastololic function. Right Ventricle Normal right ventricle. Atria The left atrium is mildly enlarged. Normal right atrium. Bubble contrast study is negative for PFO/ASD. Mitral Valve Trivial mitral valve insufficiency. Tricuspid Valve Trivial tricuspid valve insufficiency. Unable to estimate RV systolic pressure due to insufficient tricuspid regurgitant envelope. Aortic Valve Trisinus/trileaflet aortic valve. Pulmonic Valve The pulmonic valve is not well visualized. Great Vessels Normal sized aortic root. Pericardium/Pleural No pericardial effusion. Medication Diluted definity 2ml given slow IV push to enhance endocardial definition. Performed a rapid injection of agitated mix of 9 cc saline and 1cc air to assess for atrial septal defect. MMode/2D Measurements Calculations LVIDd: 5.5 cm IVSd: 1.1 cm Ao root diam: 3.4 cm LVIDs: 3.6 cm LVPWd: 1.1 cm RVDd: 4.1 cm FS: 34.7 % LAV(MOD-bp): 64.5 ml LVAd ap4: 43.0 cm2 SV(MOD-sp4): 101.0 ml LAV(MOD-bp) Indexed: 27.5 ml/m2 LVLd ap4: 9.1 cm SI(MOD-sp4): 43.1 ml/m2 LAV(MOD-sp2): 67.9 ml EDV(MOD-sp4): 167.2 ml LAV(MOD-sp4): 60.9 ml EDV(sp4-el): 172.3 ml LVAs ap4: 25.4 cm2 LVLs ap4: 7.8 cm ESV(MOD-sp4): 66.2 ml ESV(sp4-el): 70.5 ml EF(MOD-sp4): 60.4 % EF(sp4-el): 59.1 % SV(sp4-el): 101.9 ml LA A4 area: 20.5 cm2 LA dimension(2D): 4.3 cm RA A4 area: 16.2 cm2 TAPSE: 2.7 cm Time Measurements MV dec time: 0.23 sec Doppler Measurements Calculations MV E max eloy: 84.0 cm/sec Lat Peak E' Eloy: 8.6 cm/sec Med Peak E' Eloy: 8.9 cm/sec MV A max eloy: 82.8 cm/sec E/E' lat: 9.7 E/E' med: 9.4 MV E/A: 1.0 MV V2 max: 102.2 cm/sec MV P1/2t max eloy: 87.1 cm/sec Ao V2 max: 137.7 cm/sec MV max P.2 mmHg MV P1/2t: 77.4 msec Ao max P.6 mmHg MV V2 mean: 52.3 cm/sec MV dec slope: 329.8 cm/sec2 Ao V2 mean: 96.0 cm/sec MV mean P.3 mmHg MVA(P1/2t): 2.8 cm2 Ao mean P.3 mmHg MV V2 VTI: 35.4 cm Ao V2 VTI: 29.1 cm AV (velocity ratio): 0.78 LV V1 max: 95.8 cm/sec MR max eloy: 559.1 cm/sec PA V2 max: 120.4 cm/sec LV V1 max P.7 mmHg MR max P.0 mmHg PA V2 mean: 81.1 cm/sec LV V1 mean P.1 mmHg LV V1 mean: 66.8 cm/sec LV V1 VTI: 22.8 cm ECHO/Echo Complete W/ Contrast Interpretation Summary The LV systolic function is normal. EF is 65 %. The left atrium is mildly enlarged. Bubble contrast study is negative for PFO/ASD. Ordering Physician: Sebastian Maya Performed By: Jony Trejo RCS 02/15/25 1145 Date Pascual Bustos MD CC: Dr. Sebastian Maya DO; Dr. Reuben Parker DO; No Primary Care Physician Date Dictated: 02/15/2534 Date Transcribed: 02/15/25 1145 Communications Administrator: Signed Normal [facility] Emergency Department Summary on 02-14-2025 Emergency Department Summary [facility] Medical Records Department [address] [place] [address] Emergency Department Summary 02/14/25 MR#: [id number] Acct: [id number] Name: STANLEY CORRALES GARETH Rep #: [id number] : 1960 64 From: Quirino Briggs DO PCP: Care Physician,No Primary Status:REG ER Location: ED HPI History of Present Illness Chief Complaint: Neuro S/Sx Detail of Chief Complaint: Left face and left hand paresthesias Informant: patient Narrative Narrative: Patient presents with left face and left hand paresthesias. Symptoms started approximately noon with numbness and tingling to the left side of his face. Patient was in [place] and remembers getting gas and added an additive to the gas and then put a mint in his mouth but is not sure if that had anything to do with it. 2 hours later he developed some numbness and tingling in his fingertips of his left hand. He denies difficulty with speech or vision. He denies weakness. He actually drove home. Patient states that he developed an upper respiratory infection a week ago and continues to have a slight cough. Denies significant headache. Denies head injuries. He is not anticoagulated. [facility] Medical History Gout Knee pain Hypertension Home Medications ???Medication ???Instructions ???Recorded ???Last Taken ???Type rosuvastatin 20 mg tablet (Crestor) 20 mg PO DAILY 09/22/16 Unknown History amlodipine 5 mg tablet 5 mg PO QDAY 07/07/24 Unknown Hist ory olmesartan 20 mg tablet 20 mg PO QDAY 07/07/24 Unknown His tory allopurinol 100 mg tablet 100 mg PO QDAY 11/01/24 Unknown Hi story etodolac 500 mg tablet 500 mg PO BID #40 tabs 11/01/24 Un known Rx Allergy/AdvReac Type Severity Reaction Status Date / Time No Known Allergies Allergy Verified 02/14/25 20:24 Surgical History History of hernia surgery Social History Smoking Status: Never smoker alcohol intake: current ROS ROS ED Review of Systems ROS Unobtainable: other Constitutional Constitutional ED: Reports lethargy; Denies chills, fever(s), sweats or weight loss Eyes Eyes: Denies blurry vision, change in vision or diplopia ENT ENT ED: Denies rhinorrhea or sore throat Cardiovascular Cardiovascular: Denies chest pain, orthopnea or racing heartbeat Respiratory/Chest Respiratory/Chest: Denies cough, dyspnea, dyspnea on exertion, orthopnea or sputum Gastrointestinal Gastrointestinal: Denies abdominal pain, diarrhea, nausea or vomiting Genitourinary Genitourinary ED: Denies dysuria, hematuria or urinary frequency Musculoskeletal Musculoskeletal: Denies arthralgias, back pain, myalgias or neck pain Integumentary Denies abscess, Abrasions or rash Neurologic Neurologic: Reports paresthesias; Denies headache(s) or weakness Psychiatric Psychiatric: Denies anxiety, depression or suicidal thoughts Endocrine Endocrinology: Denies polydipsia, polyphagia or polyuria Hematologic/Lymphatic Hematologic/Lymphatic: Denies easy bleeding, easy bruising or lymphadenopathy Allergic/Immunologic Allergic/Immunologic ED: Denies mouth swelling, tongue swelling or urticaria EXAM Physical Exam Const Vital Signs: 02/14/25 20:22 02/14/25 20:32 02/14/25 20:32 Temperature 98.0 F Temperature Source Temporal Pulse Rate 81 79 Respiratory Rate 18 16 Blood Pressure 191/89 H 185/93 H Blood Pressure Mean 123 123 Pulse Ox 97 95 Oxygen Delivery Method Room Air Room Air Room Air 02/14/25 20:32 02/14/25 21:05 Temperature Temperature Source Pulse Rate 81 86 Respiratory Rate 16 18 Blood Pressure 185/93 H 167/99 H Blood Pressure Mean 123 121 Pulse Ox 94 98 Oxygen Delivery Method Room Air Room Air Positive well nourished and well developed General Appearance ED: well developed and NAD HEENT Reports TM's clear and moist mucous membranes normocephalic and atraumatic; Negative for trauma or tenderness Tympanic Membrane ED: Yes TM's clear Eyes PERRL and EOMs intact bilaterally General Eye ED: Negative for pale conjunctiva or scleral icterus Neck no lymphadenopathy, supple and no JVD General: Negative for tenderness Chest Wall inspection of chest normal and palpation of chest normal Chest: Negative for tenderness Resp normal respiratory effort and clear to auscultation bilaterally Effort and Inspection: Negative for respiratory distress or pain with movement Auscultation: Negative for rhonchi, wheezes or diminished lung sounds Cardio regular rate, regular rhythm, S1 normal heart sound, S2 normal heart sound and no murmurs Peripheral Pulses: pulses 2+ throughout GI normal to inspection, non (more content not included)... Normal [facility] Eosinophil percentageOrdered By: Quirino Briggs on 02-14-2025 Eosinophils/100 WBC (Bld) 2.1 % 0-5 [facility] Erythrocyte distribution wid th ratioOrdered By: Quirino Briggs on 02-14-2025 Erythrocyte distribution width (RBC) [Ratio] 12.5 % 11.6-14.6 [facility] Erythrocyte distribution wid th standard deviationOrdered By: Quirino Briggs on 02-14-2025 Erythrocyte distribution width (RBC) [Ratio] 43.1 fl 35.1-43.9 [facility] Folate [Moles/volume] in Ser um or PlasmaOrdered By: Sebastian Mills on 02-14-2025 Folate [Moles/Vol] 25.70 ng/mL 4.60-34.80 [facility] Comment on above: Hemolysis, Results w ill be affected, Requires Recollection. Glomerular filtration rate ( GFR) estimation/1.73 sq m using serum, plasma, or whole bOrdered By: Quirino Briggs on 02-14-2025 GFR/1.73 sq M.predicted among non-blacks MDRD (S/P/Bld) [Vol rate/Area] 100 mL/min/{1.73_m2} >60 [facility] Comment on above: mL/min/1.73m2 CKD-EP I Creatinine Equation (2020) H AND P Exam - [facility] 02-14-2025 H&P Exam - Hospitalist [facility] Medical Records Department [address] [place] [address] H P Exam - Hospitalist 02/14/25 2241 MR#: [id number] Acct: [id number] Name: STANLEY CORRALES GARETH Rep #: [id number] : 1960 64 From: Sebastian Maya DO PCP: Care Physician,No Primary Status:ADM LEANNE Location: [place] [address] HPI - General General Date of Admission: 02/14/25 Date of Service: 02/14/25 Chief Complaint: Paresthesias of the Left Hand and Face. HPI Narrative STANLEY CORRALES, is a 64 M with a past medical history of essential hypertension; on amlodipine and olmesartan, hyperlipidemia; on rosuvastatin, obesity; with BMI of 34.5 this admission, history of hernia surgery, history of skin cancer affecting the neck and eyelid, history of gout; on allopurinol, OA; with chronic knee pain on etodolac and recent viral URI 1 week ago; with mild residual nonproductive cough who presents to [facility] ER complaining of paresthesias of the Left hand and face. Mr. Corrales reports his symptoms began at approximately noon today with the abrupt-onset of paresthesias of his Left hand that was about 8 hours prior to his arrival. The patient stated he was in [place] and remembers getting gas and then 2 hours later he began developing numbness and tingling in the fingertips of his Left hand. He denies associated headache, recent head injury, difficulty with speech, visual changes or focal neurologic weakness so he drove himself home without incident. He admits to lethargy and paresthesias in the Left hand and face. He denies associated fever, chills, changes in vision, runny nose, sore throat, chest pain, palpitations, heart racing, lower extremity edema, shortness of breath, cough, abdominal pain, nausea, vomiting, diarrhea, dysuria, hematuria, arthralgias, headache or rash. 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 [facility] Medical History Gout Knee pain Hypertension Home Medications ???Medication ???Instructions ???Recorded ???Last Taken ???Type rosuvastatin 20 mg tablet (Crestor) 20 mg PO DAILY 09/22/16 Unknown History amlodipine 5 mg tablet 5 mg PO QDAY 07/07/24 Unknown Hist ory olmesartan 20 mg tablet 20 mg PO QDAY 07/07/24 Unknown His tory allopurinol 100 mg tablet 100 mg PO Q12H 11/01/24 Unknown Hi story Allergy/AdvReac Type Severity Reaction Status Date / Time No Known Allergies Allergy Verified 02/14/25 20:24 Surgical History History of hernia surgery Social History Smoking Status: Never smoker alcohol intake: current ROS ROS Narrative Review of Systems: Constitutional: Patient admits to lethargy but he denies fever or chills. Eyes: Patient denies changes in vision or discharge from eyes. ENT: Patient denies runny nose, sore throat or ear pain. Resp: Patient denies shortness of breath or cough. CV: Patient denies chest pain, palpitations, heart racing or lower extremity edema. GI: Patient denies abdominal pain, nausea, vomiting, diarrhea or constipation. : Patient denies dysuria, hematuria or urinary frequency. MSK: Patient denies arthralgias or myalgias. Skin: Patient denies rash, abscess, jaundice. Psych: Patient denies symptoms of uncontrolled depression or anxiety. Neuro: Patient admits to paresthesias in the Left face and hand as per HPI. He denies focal neurologic weakness. Allergy: Patient denies swelling, tongue swelling or urticaria. Hematology: Patient denies easy bleeding or easy bruisability. Endocrinology: Patient denies polyuria, polydipsia, polyphagia or heat/cold intolerance. 14 point ROS otherwise negative except for positives noted above in HPI. Vital Signs Vital Signs Vital Signs: 02/14/25 20:22 02/14/25 20:32 02/14/25 20:32 Temperature 98.0 F Temperature Source Temporal Pulse Rate 81 79 Respiratory Rate 18 16 Blood Pressure 191/89 H 185/93 H Blood Pressure Mean 123 123 Pulse Ox 97 95 Oxygen Delivery Method Room Air Room Air Room Air 02/14/25 20:32 02/14/25 21:05 Temperature Temperature Source Pulse Rate 81 86 Respiratory Rate 16 18 Blood Pressur (more content not included)... Normal [facility] Hematocrit Auto (Bld) [Volum e fraction]Ordered By: Quirino Briggs on 02-14-2025 Hematocrit (Bld) [Volume fraction] 42.2 % 40-54 [facility] Hemoglobin A1c percentageOrd ered By: Sebastian Mills on 02-14-2025 HbA1c (Bld) [Mass fraction] 5.8 % High <5.7 [facility] Comment on above: Normal < 5.7 % Predi abetic 5.7 - 6.4 % Diabetic >or= 6.5 % Please note range changes. Hemoglobin measurementOrdere d By: Quirino Briggs on 02-14-2025 Hemoglobin (Bld) [Mass/Vol] 14.5 g/dL 13.0-16.5 [facility] Immature granulocytes/100 WB C Auto (Bld)Ordered By: Quirino Briggs on 02-14-2025 Immature granulocytes/100 WBC (Bld) 0.700 % 0.0-0.9 [facility] Comment on above: IG% - Immature Granu locytes (promyelocytes, myelocytes and metamyelocytes) > 1% indicates that a LEFT SHIFT is Present. International normalized rat io (INR) calculationOrdered By: Quirino Briggs on 02-14-2025 INR Coag (Bld) [Relative time] 0.9 {INR} [facility] L501.4021on 02-14-2025 Trop T High Sen 15 ng/L Normal <=22 [facility] Comment on above: Performed By: #### L 100.0100, L500.2500, L300.3900, L501.4021, L300.4310 ####[facility] [address] [place], [place], [id number] MCV (mean corpuscular volume ) determinationOrdered By: Quirino Briggs on 02-14-2025 MCV (RBC) [Entitic vol] 93.8 fL 80-94 [facility] Mean corpuscular hemoglobin (MCH) determinationOrdered By: Quirino Briggs on 02-14-2025 MCH (RBC) [Entitic mass] 32.2 pg High 27.0-32.0 [facility] Mean corpuscular hemoglobin concentration (MCHC) determinationOrdered By: Quirino Briggs on 02-14-2025 MCHC (RBC) [Mass/Vol] 34.4 g/dL 32-36 [facility] Mean platelet volume determi nationOrdered By: Quirino Briggs on 02-14-2025 Platelet mean volume (Bld) [Entitic vol] 8.4 fL 6.2-12.0 [facility] Monocyte percentageOrdered B y: Quirino Briggs on 02-14-2025 Monocytes/100 WBC (Bld) 10.4 % High 0-10 [facility] Neutrophil percentageOrdered By: Quirino Briggs on 02-14-2025 Neutrophils/100 WBC (Bld) 48.8 % 47-70 [facility] Nucleated red blood cell per centageOrdered By: Quirino Briggs on 02-14-2025 Nucleated RBC/100 WBC (Bld) [Ratio] 0 % 0-5 [facility] Partial Thromboplast Timeon 02-14-2025 aPTT Coag (Bld) [Time] 24.3 s Normal 24.1-36.2 [facility] Comment on above: Performed By: #### L 100.0100, L500.2500, L300.3900, L501.4021, L300.4310 ####[facility] [address] [place], [address] Platelet countOrdered By: Mey Briggs on 02-14-2025 Platelets (Bld) [#/Vol] 277 10*3/uL 150-450 [facility] Potassium measurement (mass/ volume)Ordered By: Quirino Briggs on 02-14-2025 Potassium (Unsp spec) [Mass/Vol] 3.8 mmol/L 3.3-5.1 [facility] Prothrombin Time w/INRon INR Coag (PPP) [Relative time] 0.9 {INR} Normal [facility] Comment on above: Performed By: #### L 100.0100, L500.2500, L300.3900, L501.4021, L300.4310 ####[facility] [address] [place], [address] PT Coag (PPP) [Time] 12.3 s Normal 11.7-14.9 [facility] Comment on above: Performed By: #### L 100.0100, L500.2500, L300.3900, L501.4021, L300.4310 ####[facility] [address] [place], [address] Prothrombin timeOrdered By: Quirino Briggs on 02-14-2025 PT Coag (PPP) [Time] 12.3 s 11.7-14.9 [facility] RBC Auto (Bld) [#/Vol]Ordere d By: Quirino Briggs on 02-14-2025 RBC (Bld) [#/Vol] 4.50 10*6/uL Low 4.6-6.2 [facility] STROKE Brain/Head without Co nton 02-14-2025 STROKE Brain/Head without Cont [facility] Imaging Services [address] [place], [place] [id number] STROKE Brain/Head without Cont MR#: [id number] Acct: [id number] Name: STANLEY CORRALES GARETH Rep #: [id number] : 1960 M 64 From: Bran haney MD PCP: Dr. Beto Fofana MD Status: PRE ER Study: STROKE Brain/Head without Cont Date of Exam: 0 02/14/25 Exam# [id number] Ordering Dr: Quirino Briggs DO PROCEDURE: STROKE BRAIN/HEAD WITHOUT CONT 02/14/2025 REASON FOR EXAM: NEURO DEFICIT, ACUTE, STROKE SUSPECTED TECHNIQUE: Head CT without intravenous contrast. Coronal and Sagittal reconstruction series were provided. One or more dose reduction techniques were used (e.g., Automated exposure control, adjustment of the mA and/or kV according to patient size, use of iterative reconstruction technique. COMPARISON: None FINDINGS: * ACUTE: No acute infarct or hemorrhage. No mass effect or herniation. * BRAIN PARENCHYMA: Signal intensities are within normal limits for age. * VENTRICLES/EXTRA-AXIAL SPACES: No hydrocephalus or extra-axial fluid collections. * EXTRACRANIAL STRUCTURES: Visualized osseous structures are normal. Soft tissues are normal. Left maxillary sinus mucous retention cyst. Mild paranasal sinus mucosal thickening. CT/STROKE Brain/Head without Cont IMPRESSION: No acute intracranial abnormality. Reading Location: [facility] CC: Dr. Beto Fofana MD; Dr. Quirino Briggs DO Communications Administrator: Signed Normal [facility] STROKE CTA Head AND Neck W/C onon 02-14-2025 STROKE CTA Head AND Neck W/Con [facility] Imaging Services [address] [place] [id number] STROKE CTA Head AND Neck W/Con MR#: [id number] Acct: [id number] Name: STANLEY CORRALES GARETH Rep #: [id number] : 1960 M 64 From: Bran haney MD PCP: Care Physician,No Primary Status: REG ER Study: STROKE CTA Head AND Neck W/Con Date of Exam: 0 02/14/25 Exam# [id number] Ordering Dr: Quirino Briggs DO PROCEDURE: STROKE CTA HEAD AND NECK W/CON 02/14/2025 REASON FOR EXAM: NEURO DEFICIT, ACUTE, STROKE SUSPECTED TECHNIQUE: CTA imaging of the head and neck from the aortic arch to the skull vertex with out contrast and with intravenous contrast. Multiplanar and multisequence images were obtained. CONTRAST: Omnipaque 350 VOLUME: 100 mL Not Provided Gauge IV One or more dose reduction techniques were used (e.g., Automated exposure control, adjustment of the mA and/or kV according to patient size, use of iterative reconstruction technique). COMPARISON: None FINDINGS: Aortic Arch: Normal size and branching pattern. No significant atherosclerotic plaque. Brachiocephalic and Subclavians: Mild atherosclerotic plaque without significant stenosis. RIGHT Carotid: Right CCA: Unremarkable. Right ICA: Mild calcified and soft plaque. Maximum stenosis (NASCET): <10 % Right ECA: Unremarkable. LEFT Carotid: Left CCA: Unremarkable. Left ICA: Mild calcified and soft plaque. Maximum stenosis (NASCET): <10 % Left ECA: Unremarkable. Vertebrals: Codominant. Arise from the subclavians. Both vertebrals form the basilar. There appears to be a connection between the left supraclinoid ICA and basilar artery (series 4, image 428), compatible with a persistent trigeminal artery. RIGHT Vertebral: Unremarkable. LEFT Vertebral: Unremarkable. Anatomy: [place] anatomy is normal. Aneurysm or avm: No intracranial aneurysms or large vascular malformations are identified. Anterior cerebral arteries: Unremarkable: Middle cerebral arteries: Mild atherosclerotic calcification of the carotid siphons, without hemodynamically significant stenosis. Basilar artery: Unremarkable. Posterior cerebral arteries: Unremarkable. Other major branches of the posterior circulation: Unremarkable. Major venous structures: Unremarkable. Other findings: Neck: No lymphadenopathy. Lungs: Lung apices are clear. Bones: Mild degenerative changes of the cervical spine. CT/STROKE CTA Head AND Neck W/Con IMPRESSION: Scattered atherosclerotic calcification without hemodynamically significant stenosis. No evidence of acute occlusion or thrombosis. 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 Reading Location: [facility] CC: Dr. Quirino Briggs, DO; No Primary Care Physician Communications Administrator: Signed Normal [facility] Serum creatinine measurement (mass/volume)Ordered By: Quirino Briggs on 02-14-2025 Creatinine [Mass/Vol] 0.77 mg/dL 0.70-1.20 [facility] Serum glucose measurement (m ass/volume)Ordered By: Quirino Briggs on 02-14-2025 Glucose [Mass/Vol] 105 mg/dL High 70-99 [facility] Serum or plasma calcium cem urement (mass/volume)Ordered By: Quirino Briggs on 02-14-2025 Calcium [Mass/Vol] 9.7 mg/dL 7.6-11.0 [facility] Serum or plasma ethanol cem urement (mass/volume)Ordered By: Sebastian Mills on 02-14-2025 Ethanol [Mass/Vol] mg/dL <10.1 [facility] Comment on above: This test is for med ical purposes only. The legal definition of intoxication varies according to local law. Serum or plasma urea nitroge n measurement (mass/volume)Ordered By: Quirino Briggs on 02-14-2025 Urea nitrogen [Mass/Vol] 9 mg/dL 4-19 [facility] Sodium levelOrdered By: Lui Briggs on 02-14-2025 Sodium [Moles/Vol] 140 mmol/L 133-145 [facility] TSH DL <= 0.005 mIU/L QnOrde red By: Sebastian Mills on 02-14-2025 TSH Qn 2.720 uIU/mL 0.300-4.200 [facility] Thyroid Stim Hormone (TSH)on 02-14-2025 TSH 2.720 uIU/mL Normal 0.300-4.200 [facility] Comment on above: Performed By: #### L 505.5000, L501.9985, L501.9100, L501.9520, L506.0200 #### [facility] Laboratory [address] [place], [place], [id number] Troponin T.cardiac [Mass/vol ume] in Serum or Plasma by High sensitivity methodOrdered By: Quirino Briggs on 02-14-2025 Troponin T.cardiac High sensitivity method [Mass/Vol] 15 ng/L <22 [facility] Troponin T.cardiac High sensitivity method [Mass/Vol] 15 ng/L <22 [facility] Vitamin B12 ser/plasOrdered By: Sebastian Mills on 02-14-2025 Cobalamin (Vitamin B12) [Mass/Vol] 476 pg/mL 180-914 [facility] White blood cell (WBC) count Ordered By: Quirino Briggs on 02-14-2025 WBC (Bld) [#/Vol] 5.6 10*3/uL 4.4-11.0 [facility] Knee 4 or More Viewson 11-01 Knee 4 or More Views [facility] [address] [place] [address] Knee 4 or More Views MR#: [id number] Acct: [id number] Name: STANLEY CORRALES GARETH Rep #: [id number] : 1960 M 64 From: David Erazo MD PCP: Dr. Beto Fofana MD Status: DEP AMB Study: Knee 4 or More Views Date of Exam: 11/01/24 Exam# [id number] Ordering Dr: [place] [id number] STUDY: X-RAY - RIGHT KNEE REASON FOR EXAM: Male, 64 years old. Pain. TECHNIQUE: 4 views of the right knee. COMPARISON: None. FINDINGS: Normal visualized distal femur. Normal visualized proximal tibia and fibula. Normal proximal tibiofibular articulation. There is no demonstrated fracture. There is moderate to severe degenerative arthrosis of the medial femorotibial compartment with moderate to severe joint space narrowing. There is mild degenerative arthrosis of the lateral femorotibial compartment. There is mild degenerative arthrosis of the patellofemoral articulation. There is a moderate volume joint effusion. The soft tissue structures are unremarkable. RAD/Knee 4 or More Views IMPRESSION: Tricompartment degenerative arthrosis of the right knee, most severe in the medial femorotibial compartment. Moderate joint effusion. No demonstrated fracture. Electronically Signed: David Erazo MD at 15:56 EST Reading Location ID and State: [facility] / [place] , Service support , CC: Dr. Wade Pineda DO; Dr. Beto Fofana MD Communications Administrator: Signed Normal [facility] Orthopedic Visit Reporton Orthopedic Visit Report [facility] [address] [place] [address] [address] [place] [address] OFFICE VISIT Date of Service: 11/01/24 MR#: [id number] Acct: [id number] Name: STANLEY CORRALES GARETH Rep #: [id number] : 1960 Provider: Dr. Wade leung DO Age/Sex: 64/M Location: [facility] Status: Signed Intake Vital Signs 07/07/24 16:28 11/01/24 08:55 Height 5 ft 10 in 5 ft 10 in Weight: 257 lb 6 oz 255 lb 8 oz BMI 36.9 36.6 BP 170/98 H Blood Pressure Location Rt brachial Position Sitting Respiration 16 Pulse 114 H Pulse Source Monitor Temp 98.4 F Temp Source Temporal Pulse Oximetry (%) 98 Oxygen Delivery Method room air Intake Visit Reasons: LEFT KNEE Chief Complaint: right knee Accompanied by: Is patient in pain?: Yes Allergies No Known Allergies Allergy (Verified 11/01/24 08:56) Medications ???Medication ???Instructions ???Recorded ???Confirmed ???Type rosuvastatin 20 mg tablet (Crestor) 20 mg PO DAILY 09/22/16 11/01/24 History amlodipine 5 mg tablet 5 mg PO QDAY 07/07/24 11/01/24 History olmesartan 20 mg tablet 20 mg PO QDAY 07/07/24 11/01/24 History allopurinol 100 mg tablet 100 mg PO QDAY 11/01/24 11/01/24 History etodolac 500 mg tablet 500 mg PO BID #40 tabs 11/01/24 11/01/24 Rx PFSH Medical History (Updated 11/01/24 @ 09:[address] Wade Pineda DO) Gout Knee pain Hypertension Surgical History (Updated 11/01/24 @ 09:05 by Lolita Ulloa) History of hernia surgery Social History (Updated 11/01/24 @ 09:05 by Lolita Ulloa) Smoking Status: Never smoker alcohol intake: current HPI LEFT KNEE Details: This documentation accurately reflects the service provided and the decisions made by me, Dr. Wade Pineda DO 11/01/24 0739. Part of today???s visit was documented by Phoebe LONDON, acting as scribe. STANLEY CORRALES is a 64 year old M history of gout on allopurinol here today for right knee pain. 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 He has been having knee pain for 6 months. He denies previous surgery or injury to the knee. He states that the pain doesn't feel like gout. His pain is over his medial knee and sometimes radiates down the leg. He denies mechanical symptoms. He denies instability of the knee. He takes Tylenol and Aleve for the pain. He denies any imaging of the knee. He denies physical therapy and injections. Ortho Exam General General: Yes no acute distress Neurologic: Yes alert and Yes oriented x3 Psychologic: Yes reasonable and appropriate Right Knee Skin/Wound: No erythema, No ecchymosis and Yes swelling Knee ROM: Yes ROM-Extension -20 to 0 (-5) and Yes ROM-Flexion 0-140 (98) Examination: No Med jt line tenderness, No Lat jt line tenderness and No TTP Pes Anserine Stability: NML: Anterior Drawer, NML: Posterior Drawer, NML: Varus 0 and NML: Varus 30 and 1+: Valgus 30 (Due to medial joint space narrowing) Patella Translation: 1 Patella Grind: Yes KNEE: synovial hypertrophy no ptellar instability 2mm medial gapping with valgus stress slight varus deformity Left Knee Patella Translation: 1 Office Procedures Ortho Injections Injections Yes Knee Right Is this a patient provided medication?: No Details: Obtained consent for injection. Under sterile conditions, injected the patients right knee with 1.5cc bupivacaine 1.5cc lidocaine 1cc depo medrol. The patient tolerated the injection well without any noted complication. Patient should call our office if redness develops, pain worsens or if they have any concerns. Office Meds Depo-Medrol 40 mg/mL suspension for injection Performing Provider: Wade Pineda DO Performing Location: [facility] Administered by: Wade Pineda DO on 11/01/24 09:28 Dose Route Admin Location Dispensed Lot Number Expiration Date [facility] [employer] ufacturer 40 mg intra-articular right knee 1 mL [id number] 05/11/26 5058-3068-84 [employer] Supplemental Info 11/01/2024 x-ray right knee: There is moderate to severe medial joint space narrowing varus deformity, mild to moderate patellofemoral arthrosis Coding Level of Care Code Off vis,new,level 3 Diagnoses Primary osteoarthritis of right knee M17.11 Osteoarthritis type: primary CPT Codes pricing clerk.knee ([id number]) Assessment and Plan Assessment and Plan (1) Osteoarthritis of right knee: Status: Acute Qualifiers: Osteoarthritis type: primary Qualified Code(s): M17.11 - Unilateral primary osteoarthritis, right knee Orders: Orders Knee 4 or More Views Today M25.561 - Pain in right knee Ortho Injections Today M17.11 - Unilateral primary osteoarthritis, right knee Medications: New et (more content not included)... Normal [facility] Urgent Care Visit Reporton 0 07-07-2024 Urgent Care Visit Report [facility] [address], [address] [place] [address] OFFICE VISIT Date of Service: 07/07/24 MR#: [id number] Acct: [id number] Name: STANLEY CORRALES GARETH Rep #: [id number] : 1960 Provider: RADHA Pike Age/Sex: 63/M Location: [facility] Status: Signed Intake Vital Signs 10/01/16 08:07 07/07/24 16:28 Height 6 ft 5 ft 10 in Weight: 257 lb 6 oz BMI 36.9 BP 170/98 H Blood Pressure Location Rt brachial Position Sitting Respiration 16 Pulse 114 H Pulse Source Monitor Temp 98.4 F Temp Source Temporal Pulse Oximetry (%) 98 Oxygen Delivery Method room air Intake Visit Reasons: Gout Chief Complaint: GOUT 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: No Accompanied by: Self Is patient in pain?: Yes Allergies No Known Allergies Allergy (Verified 07/07/24 16:30) Medications ???Medication ???Instructions ???Recorded ???Confirmed ???Type rosuvastatin 20 mg tablet (Crestor) 20 mg PO DAILY //16 07/07/24 History allopurinol 100 mg tablet 200 mg PO QDAY 07/07/24 07/07/24 History amlodipine 5 mg tablet 5 mg PO QDAY 07/07/24 07/07/24 History colchicine 0.6 mg capsule 0.6 mg PO QDAY 10 days #12 caps 07/07/24 07/07/24 Rx olmesartan 20 mg tablet 20 mg PO QDAY 07/07/24 07/07/24 History PFSH Medical History (Updated 07/07/24 @ 16:34 by Patricia Malik MA) Gout Knee pain Hypertension Social History Smoking Status: Never smoker HPI HPI Chief Complaint: GOUT RT FOOT Details: STANLEY CORRALES, is a 63 M who presents to the office today for complaint of gout to the left great toe. Patient states he has a history of gout with similar symptoms. He states that for the past 4 days he has had inflammation and redness around the base of his left great toe. He does take allopurinol and states that he even doubled his allopurinol during this incident with no relief. He does state that colchicine in the past has worked well. No numbness, tingling or loss range of motion. No other associated symptoms or alleviating/aggravating factors. ROS Const Constitutional: No other (6 system ROS completed with pertinent findings in the HPI otherwise normal.) Exam Const General: cooperative and healthy appearing Resp Effort Inspection: normal respiratory effort Cardio Rate: regular rate Neuro General: patient alert Extrem General: full ROM, capillary refill normal and normal exam except as noted (Swelling and erythema left great toe) Psych Appearance: grossly normal Mental Status: mental status grossly normal Coding Level of Care Code Off vis,new,level 3 Diagnoses Gout M10.9 Assessment and Plan Assessment and Plan (1) Gout: Plan: Colchicine as prescribed today. Encouraged to get plenty of rest, drink lots of clear liquids, and use Tylenol or Ibuprofen (unless contraindicated) for comfort. Patient also educated on other symptomatic management techniques. To be seen in 3-5 days if no improvement; sooner if worsening of symptoms. Patient advised of potential red flags and when appropriate to report to the ED. Patient verbalized understanding and agreement with all the above. Medications: New colchicine Take 2 tabs PO day one then one more one hour later then one tab daily for 9 days. 0.6 mg PO QDAY 10 days 12 caps 0RF Discontinued oxycodone-acetaminophen 5-325 mg Discontinued Reason: Order Completed 1 - 2 tabs PO 4X/DAY PRN PRN 15 tabs Pain clindamycin HCl (Cleocin HCl) Discontinued Reason: Order Completed 300 mg PO TID #12 0RF imiquimod 5% (Aldara) apply daily at night 5 days per week for 6 weeks. Discontinued Reason: Order Completed 1 ea TP DAILY #30 0RF 07/07/24 1735 Date Kash Robin Signature: Date (if applicable) CC: [facility] 05-08-2024 [facility] Telephone (DAVISRIS) STANLEY CORRALES ([id number]) 1960 M Date Time Provider Department 05/08/24 BETO FOFANA During your visit today, we recorded the following information about you: Ashley Alfaro LPN 05/08/2024 3:14 PM Signed ----- Message from Beto Fofana MD sent at 05/07/2024 8:32 PM EDT ----- Cologuard negative. Recheck in 3 years. Ashley Alfaro LPN 05/08/2024 3:18 PM Signed Patient notified of the following: Per Dr. Fofana, the cologuard was negative and to repeat it in 3 years. Patient verbalized understanding, no questions or concerns voiced, patient thanked me for the call and call ended. Ashley Alfaro LPN May 08, 2024 3:18 PM Allergies As of Date: 05/08/2024 (No Known Allergies) Date Reviewed: 03/29/2024 Reviewed by: Yeimy Lopes LPN - Fully Assessed Prescriptions as of 05/08/2024 - allopurinol (ZYLOPRIM) 100 mg tablet Take 1 tablet by mouth once daily. - amLODIPine (NORVASC) 10 mg tablet Take 1 tablet by mouth once daily. - olmesartan (BENICAR) 20 mg tablet Take 1 tablet by mouth once daily. - rosuvastatin (CRESTOR) 20 mg tablet Take 1 tablet by mouth once daily. Problem List As Of Date 05/08/2024 Noted Resolved Umbilical hernia without obstruction and withou*03/05/2016 Mixed hyperlipidemia [E78.2] 03/13/2016 Hypertension, essential [I10] 03/29/2024 Gout [M10.9] 06/04/2021 Allergic rhinitis [J30.9] 05/07/2017 Male erectile disorder (CODE) [F52.21] 05/07/2017 Encounter Status:Closed by ASHLEY ALFARO on 05/08/24 [facility] CNOVmandeep 03-29-2024 CNOV Office Visit (FAMMAS ) STANLEY CORRALES ([id number]) 1960 M Date Time Provider Department 03/29/24 10:10 AM BETO FOFANA During your visit today, we recorded the following information about you: Temperature Pulse Respiration Blood pressure 97.6 degrees 74/minute 18/minute 138/82 Weight Height 117.5 kg 1.829 m Yeimy Lopes LPN 03/29/2024 10:45 AM Signed [facility] Hepatitis C Screening declined HIV Screening declined DTaP,Tdap,Td Vaccine(1 - Tdap) declined Shingrix Vaccine(1 of 2) declined RSV Vaccine(1 - 1-dose 60+ series) declined Colorectal Cancer Screening cologuard Covid-19 Vaccine( - season) declined Diabetes Screening Patient has not been in office since 2020 Patient did not take any medication this morning Yeimy Lopes LPN March 29, 2024 10:05 AM Beto Fofana MD 03/29/2024 10:45 AM Signed Subjective Stanley Corrales is a 63 year old male. Jeff presents today for his annual wellness visit. Additionally he follows up for multiple medical problems. See list. His chronic medical problems been stable. His blood pressure is well-controlled on his current regimen. Cholesterol is improved with rosuvastatin. He denies any gout episodes. Review of Systems Constitutional: Negative. HENT: Negative. Eyes: Negative. Respiratory: Negative. Cardiovascular: Negative. Gastrointestinal: Negative. Endocrine: Negative. Genitourinary: Negative. Musculoskeletal: Negative. Skin: Negative. Allergic/Immunologic: Negative. Neurological: Negative. Hematological: Negative. Psychiatric/Behavioral: Negative. PAST SURGICAL HISTORY Procedure Laterality Date PAST SURGICAL HISTORY OF Right 2015 Ganglion removed right small finger RPR UMBILICAL HRNA 5 YRS/> REDUCIBLE 03/24/16 medium ventralex PAST MEDICAL HISTORY Diagnosis Date Hypercholesteremia FAMILY HISTORY Problem Relation Age of Onset Diabetes Father Social History Tobacco Use Smoking status: Never Vaping Use Vaping Use: Never used Substance Use Topics Alcohol use: Yes Comment: occasional Beer Drug use: No ALLERGIES No Known Allergies MEDICATIONS: allopurinol (ZYLOPRIM) 100 mg tablet Take 1 tablet by mouth once daily. amLODIPine (NORVASC) 10 mg tablet Take 1 tablet by mouth once daily. olmesartan (BENICAR) 20 mg tablet Take 1 tablet by mouth once daily. rosuvastatin (CRESTOR) 20 mg tablet Take 1 tablet by mouth once daily. Allergies, past surgical history, family history and past medical history were reviewed per this encounter. Medications were reviewed and verified. Objective BP 138/82 (BP Site: Right Arm, BP Position: Sitting, BP Cuff Size: Regular Adult) Pulse 74 Temp 36.4 ?C (97.6 ?F) (Temporal) Resp 18 Ht 182.9 cm (6') Wt 117.5 kg (259 lb) SpO2 98% BMI 35.13 kg/m? Physical Exam Vitals reviewed. Constitutional: Appearance: Normal appearance. HENT: Head: Normocephalic and atraumatic. Nose: Nose normal. Eyes: Extraocular Movements: Extraocular movements intact. Pupils: Pupils are equal, round, and reactive to light. Cardiovascular: Rate and Rhythm: Normal rate and regular rhythm. Pulmonary: Effort: Pulmonary effort is normal. Breath sounds: Normal breath sounds. Abdominal: General: Bowel sounds are normal. Palpations: Abdomen is soft. Musculoskeletal: General: Normal range of motion. Cervical back: Normal range of motion and neck supple. Skin: General: Skin is warm and dry. Capillary Refill: Capillary refill takes less than 2 seconds. Neurological: General: No focal deficit present. Mental Status: He is alert and oriented to person, place, and time. Mental status is at baseline. Psychiatric: Mood and Affect: Mood normal. Behavior: Behavior normal. Assessment and Plan Encounter Diagnosis ICD-10-CM 1. Wellness examination Z00.00 2. Screening for colon cancer Z12.11 COLOGUARD 3. Hypertension, essential I10 COMPREHENSIVE METABOLIC PANEL LIPID PANEL BASIC 4. Pure hypercholesterolemia E78.00 COMPREHENSIVE METABOLIC PANEL LIPID PANEL BASIC 5. Screening for deficiency anemia Z13.0 COMPLETE BLOOD COUNT AND DIFFERENTIAL 6. Screening PSA (prostate specific antigen) Z12.5 PSA/PROSTATE SPECIFIC ANTIGEN SCREENING 7. Gout, unspecified cause, unspecified chronicity, unspecified site M10.9 All open preventative health maintenance topics discussed with patient in detail. This includes risks and benefits regarding vaccines, cancer screening, healthy life style, and diet. Continue present medications. Check labs as above. Monitor blood pressure regularly. Exercise as tolerated. Maintain good diet. Follow-up in 6 months. Beto Fofana MD Allergies As of Date: 03/29/2024 (No Known Allergies) Date Reviewed: 03/29/2024 Reviewed by: Yeimy Lopes LPN - Fully Assessed Reason for Visit: Well (more content not included)... Normal [facility] CBC W/DIFFon 08-20-2020 BASO ABS 0.00 K/CU MM Normal 0-0.2 [facility] Comment on above: Performed By: #### L 200.61716, L550.06161 #### [facility] [address] [place] [address] Basophils/100 WBC (Bld) 0.6 % Normal 0-2 [facility] Comment on above: Performed By: #### L 200.32034, L550.68195 #### [facility] [address] [place] [address] EOS ABS 0.10 K/CU MM Normal 0-0.5 [facility] Comment on above: Performed By: #### L 200.07867, L550.16580 #### [facility] [address] [place] [address] Eosinophils/100 WBC (Bld) 1.4 % Normal 0-5 [facility] Comment on above: Performed By: #### L 200.91049, L550.11914 #### [facility] [address] [place] [address] Erythrocyte distribution width (RBC) [Ratio] 12.1 % Normal 11-14.5 [facility] Comment on above: Performed By: #### L 200.41393, L550.04961 #### [facility] [address] [place] [address] Hematocrit (Bld) [Volume fraction] 43.3 % Normal 41.0-53.0 [facility] Comment on above: Performed By: #### L 200.57052, L550.62399 #### [facility] [address] [place], [place] [id number] Hemoglobin (Bld) [Mass/Vol] 14.1 g/dL Normal 13.5-17.5 [facility] Comment on above: Performed By: #### L 200.80555, L550.45515 #### [facility] [address] [place] [address] IMMATR GRAN ABS 0.00 K/CU MM Normal Less than 2 [facility] Comment on above: Performed By: #### L 200.64647, L550.26018 #### [facility] [address] [place] [address] IMMATURE GRAN % 0.6 % Normal Less than 2 [facility] Comment on above: Performed By: #### L 200.77066, L550.12270 #### [facility] [address] [place] [address] Lymphocytes (Bld) [#/Vol] 2.20 K/CU MM Normal 0.9-4.4 [facility] Comment on above: Performed By: #### L 200.39695, L550.57186 #### [facility] [address] [place] [address] Lymphocytes/100 WBC (Bld) 33.4 % Normal 20-40 [facility] Comment on above: Performed By: #### L 200.99202, L550.69318 #### [facility] [address] [place] [address] MCHC (RBC) [Mass/Vol] 32.6 g/dL Normal 32.0-36.0 [facility] Comment on above: Performed By: #### L 200.90615, L550.45272 #### [facility] [address] [place] [address] MCV (RBC) [Entitic vol] 97.3 fL Normal 80.0-99.0 [facility] Comment on above: Performed By: #### L 200.10276, L550.30204 #### [facility] [address] [place] [address] MONO ABS 0.60 K/CU MM Normal 0.1-1.1 [facility] Comment on above: Performed By: #### L 200.98623, L550.51886 #### [facility] [address] [place] [address] Monocytes/100 WBC (Bld) 9.3 % Normal 2-10 [facility] Comment on above: Performed By: #### L 200.38294, L550.69147 #### [facility] [address] [place] [address] NEUTROPHIL ABS 3.50 K/CU MM Normal 2.0-8.3 [facility] Comment on above: Performed By: #### L 200.80376, L550.71145 #### [facility] [address] [place] [address] Neutrophils/100 WBC (Bld) 54.7 % Normal 45-75 [facility] Comment on above: Performed By: #### L 200.91105, L550.62789 #### [facility] [address] [place] [address] Nucleated RBC/100 WBC (Bld) [Ratio] 0.0 % Normal Less than 1 [facility] Comment on above: Performed By: #### L 200.77613, L550.19190 #### [facility] [address] [place] [address] Platelet mean volume (Bld) [Entitic vol] 8.7 fL Low 9.4-12.4 [facility] Comment on above: Performed By: #### L 200.86725, L550.13972 #### [facility] [address] [place], [place] [id number] Platelets (Bld) [#/Vol] 272 K/CU MM Normal 150-450 [facility] Comment on above: Performed By: #### L 200.99676, L550.33501 #### [facility] [address] [place], [place] [address] RBC (Bld) [#/Vol] 4.45 M/CU MM Low 4.50-6.00 [facility] Comment on above: Performed By: #### L 200.43094, L550.40124 #### [facility] [address] [place], [place] [address] WBC (Bld) [#/Vol] 6.4 K/CUMM Normal 4.5-11.0 [facility] Comment on above: Performed By: #### L 200.99573, L550.22587 #### [facility] [address] [place] [address] CMPon 08-20-2020 Albumin [Mass/Vol] 4.5 g/dL Normal 3.2-5.0 [facility] Comment on above: Performed By: #### L 500.31861, L500.66296, L500.94972, L500.54136 #### [facility] [address] [place] [address] Albumin/Globulin [Mass ratio] 2.0 {ratio} Normal 0.8-2.0 [facility] Comment on above: Performed By: #### L 500.73142, L500.32589, L500.99834, L500.26168 #### [facility] [address] [place], [place] [address] ALK PHOS 79 U/L Normal 45-117 [facility] Comment on above: Performed By: #### L 500.01122, L500.34132, L500.52381, L500.54370 #### [facility] [address] [place], [place] [address] ALT [Catalytic activity/Vol] 38 U/L Normal 13-61 [facility] Comment on above: Result Comment: RESU LTS MAY BE FALSELY DEPRESSED AFTER THE ADMINISTRATION OF SULFASALAZINE AND/OR SULFAPYRIDINE. Performed By: #### L 500.84900, L500.02099, L500.27800, L500.57816 #### [facility] [address] [place] [address] Anion gap [Moles/Vol] 8 mmol/L Normal 5-16 [facility] Comment on above: Performed By: #### L 500.33787, L500.61195, L500.86573, L500.60871 #### [facility] [address] [place] [address] BILI TOTAL 0.60 MG/DL Normal 0.2-1.0 [facility] Comment on above: Performed By: #### L 500.65844, L500.72126, L500.51572, L500.14407 #### [facility] [address] [place] [address] Calcium [Mass/Vol] 10.4 mg/dL Normal 8.5-10.5 [facility] Comment on above: Result Comment: NOTE NEW NORMAL RANGE DUE TO REAGENT CHANGE Performed By: #### L 500.42697, L500.22275, L500.26001, L500.05747 #### [facility] [address] [place] [address] Chloride [Moles/Vol] 106 mmol/L Normal 98-107 [facility] Comment on above: Performed By: #### L 500.39073, L500.39175, L500.18873, L500.28260 #### [facility] [address] [place], [place] [address] CO2 [Moles/Vol] 26.0 mmol/L Normal 21-32 [facility] Comment on above: Performed By: #### L 500.09258, L500.49003, L500.56416, L500.65194 #### [facility] [address] [place] [address] Creatinine [Mass/Vol] 0.80 mg/dL Normal 0.5-1.4 [facility] Comment on above: Result Comment: NOTE NEW NORMAL RANGE DUE TO REAGENT CHANGE Patients receiving either N-Acetylcysteine (NAC) or Metamizole prior to venipuncture, may have falsely depressed results. Performed By: #### L 500.64141, L500.50285, L500.99365, L500.16544 #### [facility] [address] [place] [address] Globulin (S) [Mass/Vol] 2.2 g/dL Normal 2.2-4.2 [facility] Comment on above: Performed By: #### L 500.46372, L500.19878, L500.50156, L500.71940 #### [facility] [address] [place] [address] Glucose [Mass/Vol] 100 mg/dL Normal 70-100 [facility] Comment on above: Result Comment: 70-1 00- Normal Fasting; 100-125 Impaired Fasting; greater than 126 on more than one result- Diabetes. ADA guidelines. Results may be falsely elevated after the administration of Sulfapyridine. Results may be falsely depressed after the administration of Sulfasalazine. Performed By: #### L 500.24907, L500.89069, L500.59400, L500.83204 #### [facility] [address] [place] [address] Potassium [Moles/Vol] 4.6 mmol/L Normal 3.5-5.1 [facility] Comment on above: Performed By: #### L 500.06993, L500.55110, L500.02299, L500.87590 #### [facility] [address] [place] [address] Protein [Mass/Vol] 6.7 g/dL Normal 6.0-8.5 [facility] Comment on above: Performed By: #### L 500.66510, L500.39805, L500.71281, L500.65814 #### [facility] [address] [place] [address] SGOT (AST) 32 U/L Normal 8-34 [facility] Comment on above: Result Comment: RESU LTS MAY BE FALSELY DEPRESSED AFTER THE ADMINISTRATION OF SULFASALAZINE AND/OR SULFAPYRIDINE. Performed By: #### L 500.24827, L500.35154, L500.80057, L500.01075 #### [facility] [address] [place] [address] Sodium [Moles/Vol] 140 mmol/L Normal 136-145 [facility] Comment on above: Performed By: #### L 500.44407, L500.15164, L500.66534, L500.34940 #### [facility] [address] [place] [address] Urea nitrogen [Mass/Vol] 14 mg/dL Normal 7-26 [facility] Comment on above: Performed By: #### L 500.35872, L500.20810, L500.64027, L500.79353 #### [facility] [address] [place] [address] Urea nitrogen/Creatinine [Mass ratio] 17 mg/mg Normal 15-24 [facility] Comment on above: Performed By: #### L 500.34786, L500.01342, L500.60833, L500.80722 #### [facility] [address] [place] [address] GFR ESTon 08-20-2020 IF AMER Greater than 60 Normal [facility] Comment on above: Performed By: #### L 500.27040, L500.07485, L500.77512, L500.85611 #### [facility] [place] [id number] IF non-AFR AMER Greater than 60 Normal [facility] Comment on above: Performed By: #### L 500.50570, L500.89649, L500.77001, L500.04573 #### [facility] [address] [place], [place] [address] [facility]2020 HbA1c (Bld) [Mass fraction] 6.0 % Normal 4.3-6.0 [facility] Comment on above: Performed By: #### L 200.40779, L550.66765 #### [facility] [address] [place] [address] LIPIDon 08-20-2020 Cholesterol [Mass/Vol] 274 MG/dL High 0-199 [facility] Comment on above: Performed By: #### L 500.26212, L500.12293, L500.43294, L500.86085 #### [facility] [address] [place] [address] Cholesterol in HDL [Mass/Vol] 58 mg/dL Normal [place] 40 [facility] Comment on above: Result Comment: Cris ents receiving Metamizole prior to venipuncture, may have falsely depressed results. Performed By: #### L 500.31574, L500.98425, L500.15003, L500.69743 #### [facility] [address] [place] [address] Cholesterol in LDL [Mass/Vol] 170 mg/dL Normal [facility] Comment on above: Result Comment: ___C HOLESTEROL/HDL RATIO RISK___ CHD RISK = Total CHOL LDL HDL (CHOL/HDL) Recommended <200 <130 >40 <3.4 Borderline 200-239 130-159 3.4-4.99 High >240 >160 >5.0 Performed By: #### L 500.04683, L500.27628, L500.94687, L500.28386 #### [facility] [address] [place] [address] Triglyceride [Mass/Vol] 232 mg/dL High 30-149 M [facility] Comment on above: Result Comment: Cris ents receiving either N-Acetylcysteine (NAC) or Metamizole prior to venipuncture, may have falsely depressed results. Performed By: #### L 500.69743, L500.25734, L500.92382, L500.55705 #### [facility] [place] [address] PSA SCREENon 08-20-2020 PSA SCREEN 2.47 NG/ML Normal 0.0-4.0 [facility] Comment on above: Performed By: #### L 500.53622, L500.63397, L500.70009, L500.37112 #### [facility] [address] [place] [address] Office Visit: evaluation act inic keratosis left lateral neckon 03-15-2017 Alcoholism counseling (procedure) no Invalid Interpretation Code [facility] Work Phone: [phone] Dietary management education, guidance, and counseling (procedure) yes Invalid Interpretation Code [facility] Work Phone: [phone] Documentation of current medications (procedure) Done Invalid Interpretation Code [facility] Work Phone: [phone] Fall risk assessment No Invalid Interpretation Code [facility] Work Phone: [phone] Protein mass conc Done [facility] Work Phone: [phone] Protein mass conc no [facility] Work Phone: [phone] Tobacco smoking status NHIS Never Invalid Interpretation Code [facility] Work Phone: [phone] Tobacco smoking status NHIS Never smoker [facility] Work Phone: [phone] Tobacco use [facility]PH[facility] Never smoker Invalid Interpretation Code [facility] Work Phone: [phone] Vital Signs Date Time Vital Sign Value Performing Clinician Facility 02-15-2025 16:08-0400 Body temperature 98.6 [degF] Dr. Beto Fofana MD Work Phone: [facility] 02-15-2025 16:08-0400 Diastolic blood pressure 87 mm[Hg] Dr. Beto Fofana MD Work Phone: [facility] 02-15-2025 16:08-0400 Heart rate 65 /min Dr. Beto Fofana MD Work Phone: [facility] 02-15-2025 16:08-0400 Respiratory rate 18 /min Dr. Beto Fofana MD Work Phone: [facility] 02-15-2025 16:08-0400 SaO2% (BldA) [Mass fraction] 98 % Dr. Beto Fofana MD Work Phone: [facility] 02-15-2025 16:08-0400 Systolic blood pressure 152 mm[Hg] Dr. Beto Fofana MD Work Phone: [facility] 02-15-2025 15:16-0400 Body height 182.[address] Beto Fofana MD Work Phone: [facility] 02-15-2025 15:16-0400 Body weight 113.[address] Beto Fofana MD Work Phone: [facility] 02-15-2025 14:00-0400 Body mass index (BMI) [Ratio] 33.8 kg/m2 Dr. Beto Fofana MD Work Phone: [facility] 02-14-2025 23:54-0400 Body temperature 98 [degF] Dr. Beto Fofana MD Work Phone: [facility] 02-14-2025 23:54-0400 Diastolic blood pressure 96 mm[Hg] Dr. Beto Fofana MD Work Phone: [facility] 02-14-2025 23:54-0400 Heart rate 75 /min Dr. Beto Fofana MD Work Phone: [facility] 02-14-2025 23:54-0400 Respiratory rate 18 /min Dr. Beto Fofana MD Work Phone: [facility] 02-14-2025 23:54-0400 SaO2% (BldA) [Mass fraction] 97 % Dr. Beto Fofana MD Work Phone: [facility] 02-14-2025 23:54-0400 Systolic blood pressure 172 mm[Hg] Dr. Beto Fofana MD Work Phone: [facility] 02-14-2025 20:37-0400 Body height 183.[address] Beto Fofana MD Work Phone: [facility] 02-14-2025 20:37-0400 Body mass index (BMI) [Ratio] 34.4 kg/m2 Dr. Beto Fofana MD Work Phone: [facility] 02-14-2025 20:37-0400 Body weight 115.[address] Beto Fofana MD Work Phone: [facility] 11-01-2024 08:55-0500 Body mass index (BMI) [Ratio] 36.6 kg/m2 Dr. Beto Fofana MD Work Phone: [facility] 11-01-2024 08:55-0500 Body weight 115.[address] Beto Fofana MD Work Phone: [facility] 03-29-2024 10:41-0400 Diastolic blood pressure 82 mm[Hg] Beto Fofana MD Work Phone: [facility] 03-29-2024 10:41-0400 Systolic blood pressure 138 mm[Hg] Beto Fofana MD Work Phone: [facility] 03-29-2024 10:010400 Body height 182.9 cm Beto Fofana MD Work Phone: [facility] 03-29-2024 10:01-0400 Body mass index (BMI) [Ratio] 35.13 kg/m2 Beto Fofana MD Work Phone: [facility] 03-29-2024 10:010400 Body temperature 97.59 [degF] Beto Fofana MD Work Phone: [facility] 03-29-2024 10:01-0400 Body weight 117.48 kg Beto Fofana MD Work Phone: [facility] 03-29-2024 10:01-0400 Heart rate 74 /min Beto Fofana MD Work Phone: [facility] 03-29-2024 10:01-0400 Respiratory rate 18 /min Beto Fofana MD Work Phone: [facility] 03-29-2024 10:01040 SaO2% (BldA) [Mass fraction] 98 % Beto Fofana MD Work Phone: [facility] 03-15-2017 14:260400 BMI (Body Mass Index) 32.84 kg/m2 Jono Tello MD [facility] Work Phone: 03-15-2017 14:26-0400 Body Temperature 98 [degF] Jono Tello MD [facility] Work Phone: 03-15-2017 14:-0400 BP Diastolic 83 mm[Hg] Jono Tello MD [facility] Work Phone: 03-15-2017 14:26-0400 BP Systolic 166 mm[Hg] Jono Tello MD [facility] Work Phone: 03-15-2017 14:-0400 BSA (Body Surface Area) 2.29 m2 Jono Tello MD [facility] Work Phone: 03-15-2017 14:040 Height 181.61 cm Jono Tello MD [facility] Work Phone: 03-15-2017 14:040 Pulse (Heart Rate) 86 /min Jono Tello MD [facility] Work Phone: 03-15-2017 14:040 Respiratory Rate 16 /min Jono Tello MD [facility] Work Phone: 03-15-2017 14:040 Weight 108.32 kg Jono Tello MD [facility] Work Phone: 10-07-2016 15:130500 Height 181.61 cm Jono Tello MD [facility] Work Phone: 10-07-2016 15:13-0500 Weight 107.55 kg Jono Tello MD [facility] Work Phone: Encounters Encounter Date Encounter Type Care Provider Facility Start: 03-21-2025 End: 03-21-[address] Quirino Briggs DO Work Phone: [facility] Work Phone: Start: 03-21-2025 End: 03-21-2025 Patient encounter procedure Naila Suh [employer]PATCH MANAGER-C -Laboratory Ivel[facility] Quezada Start: 03-21-2025 End: 03-21-2025 ambulatory Naila Suh Facility:[facility] Start: 03-09-2025 ambulatory Reuben Parker Facility:[facility] Start: 03-09-[address] Reuben Davis i DO -Occupational Therapy Work Phone: Start: 02-15-2025 ambulatory No Primary Car e Physician Facility[place] Start: 02-15-2025 Non-patient / Non-visit Dr. Reuben kothari MD -[facility] Start: 02-15-2025 ambulatory Pascual Bustos Facility:[facility] Start: 02-15-2025 Non-patient / Non-visit Dr. Pascual fitzgerald MD -[facility] Start: 02-14-2025 End: 02-15-2025 ambulatory eRuben Parker Facility:[facility] Start: 02-14-2025 End: 02-15-2025 Evaluation and management of inpatient Dr. Sebastian Maya DO -[facility] Work Phone: Start: 02-14-2025 End: 02-15-[address] Beto Fofana MD Work Phone: [facility] Work Phone: Start: 11-01-2024 End: 11-01-[address] Wade Pineda DO [facility] Work Phone: Start: 11-01-2024 End: 11-01-2024 ambulatory Beto Fofana Facility:[facility] Start: 07-07-2024 End: 07-07-2024 ambulatory Beto Fofana Facility:[facility] Start: 05-08-2024 Telephone encounter Beto Fofana MD Work Phone: [facility] Start: 03-29-2024 End: 03-29-2024 Patient encounter status Beto Fofana MD Work Phone: [facility] Start: 03-29-2024 End: 03-29-2024 Periodic preventive med est patient 40-64yrs Beto Fofana MD Work Phone: [facility] Comment on above: Wellness examination (Primary Dx); Screening for colon cancer; Hypertension, essential; Pure hypercholesterolemia; Screening for deficiency anemia; Screening PSA (prostate specific antigen); Gout, unspecified cause, unspecified chronicity, unspecified site Start: 03-29-2024 End: 03-29-[address] Facility:[id number] Start: 01-24-2024 Refill Beto Putnam MD Work Phone: [facility] Comment on above: Refill Request Start: 09-04-2022 Refill Beto Putnam MD Work Phone: [facility] Comment on above: Refill Request Start: 07-11-2022 Refill Beto Putnam MD Work Phone: [facility] Comment on above: Refill Request Procedures Date Procedure Procedure Detail Performing Clinician Start: 02-15-2025 MRI of brain without contrast Dr. Beto Fofana MD Work Phone: Start: 02-15-2025 Methadone measuremen t, urine Dr. Beto Fofana MD Work Phone: Start: 02-14-2025 CT angiography of he ad and neck Dr. Beto Fofana MD Work Phone: Start: 02-14-2025 Estimated creatinine clearance Dr. Beto Fofana MD Work Phone: Start: 02-14-2025 CT of head without contrast Dr. Beto Fofana MD Work Phone: Start: 11-01-2024 X-ray of knee, four or more views Dr[address] Beto Fofana MD Work Phone: Start: 03-29-2024 Adult depression scr eening assessment Beto Fofana MD Work Phone: Start: 08-19-2020 Lipid 1996 panel - S dev or Plasma Beto Fofana MD Work Phone: Start: 03-15-2017 End: 03-15-2017 Dietary management education, guidance, and counseling Jono Tello MD Start: 08-24-2016 End: 12-22-2016 Follow Up Appt Other Jono Tello MD Plan of Treatment Date Care Activity Detail Author Start: 05-01-2027 Screening for malignant neoplasm of colon [facility] Start: 08-19-2025 Lipid panel Lipid Screening [facility] Start: 08-19-2025 LIPID SCREEN LIPID SCREEN [facility] Start: 08-19-2025 PROSTATE CANCER SCREENING DISCUSSION PROSTATE CANCER SCREENING DISCUSSION [facility] Start: 08-19-2025 Prostate specific antigen measurement Prostate Cancer Screening Discussion [facility] Start: 03-29-2025 Annual PCP Team Chronic Disease Visit Annual PCP Team Chronic Disease Visit [facility] Start: 03-29-2025 Anxiety Screening Anxiety Screening [facility] Start: 03-29-2025 Depression Screening Depression Screening [facility] Start: 02-15-2025 Patient discharge [facility] Start: 02-15-2025 [facility] Start: 02-15-2025 Application of intermittent pneumatic compression device [facility] Start: 02-15-2025 Following clinical pathway protocol [facility] Start: 02-15-2025 Aspiration precautions [facility] Start: 02-15-2025 Cardiac monitoring [facility] Start: 02-15-2025 Catheterization of vein [facility] Start: 02-15-2025 Consultation [facility] Start: 02-15-2025 Continuous pulse oximetry [facility] Start: 02-15-2025 Elevation of head of bed [facility] Start: 02-15-2025 Exercises [facility] Start: 02-15-2025 Notification of physician [facility] Start: 02-15-2025 Oxygen therapy [facility] Start: 02-15-2025 Patient referral to dietitian [facility] Start: 02-15-2025 Referral to occupational therapist [facility] Start: 02-15-2025 Referral to service [facility] Start: 02-15-2025 Speech therapy assessment [facility] Start: 02-15-2025 Telemedicine consultation with patient [facility] Start: 02-15-2025 Tobacco use cessation education [facility] Start: 02-15-2025 [facility] Start: 02-15-2025 Vital signs measurements [facility] Start: 02-14-2025 Hospital admission, emergency, from emergency room, medical nature [facility] Start: 02-14-2025 MRI of brain without contrast Brain without Contrast [facility] Start: 02-14-2025 Admission procedure [facility] Start: 02-14-2025 Oxygen therapy [facility] Start: 02-14-2025 [facility] Start: 10-02-2024 End: 10-02-2024 Patient encounter procedure 10/02/2024 11:10 AM EST Office Visit [facility] [address] [place] [id number] Beto Fofana MD [address] [place], [place] [address] 6 Month Follow Up [facility] Comment on above: 6 Month Follow Up Start: 06-11-2024 Influenza vaccination [facility] Start: 03-29-2024 End: 06-28-2024 CBC W Auto Differential panel - Blood COMPLETE BLOOD COUNT AND DIFFERENTIAL Lab Routine Screening for deficiency anemia Expected: 03/29/2024, Expires: 06/28/2024 [facility] Comment on above: Expected: 03/29/2024, Expires: Start: 03-29-2024 End: 06-28-2024 Comprehensive metabolic 2000 panel - Serum or Plasma COMPREHENSIVE METABOLIC PANEL Lab Routine Hypertension, essential Pure hypercholesterolemia Expected: 03/29/2024, Expires: 06/28/2024 [facility] Comment on above: Expected: 03/29/2024, Expires: 4 Start: 03-29-2024 End: 06-28-2024 Lipid 1996 panel - Serum or Plasma LIPID PANEL BASIC Lab Routine Hypertension, essential Pure hypercholesterolemia Expected: 03/29/2024, Expires: 06/28/2024 [facility] Comment on above: Expected: 03/29/2024, Expires: Start: 03-29-2024 End: 06-28-2024 PSA/PROSTATE SPECIFIC ANTIGEN SCREENING PSA/PROSTATE SPECIFIC ANTIGEN SCREENING Lab Routine Screening PSA (prostate specific antigen) Expected: 03/29/2024, Expires: 06/28/2024 [facility] Comment on above: Expected: 03/29/2024, Expires: 4 Start: 10-11-2023 Behavioral Health Screening Behavioral Health Screening [facility] Start: 08-19-2023 DIABETES SCREEN DIABETES SCREEN [facility] Start: 08-19-2023 Diabetes Screening Diabetes Screening [facility] Start: 06-11-2023 Covid-19 Vaccine () Covid-19 Vaccine () [facility] Start: 06-11-2022 Influenza vaccination INFLUENZA (#1) [facility] Start: 10-23-2021 Screening for malignant neoplasm of colon [facility] Start: 10-11-2021 DEPRESSION ASSESSMENT DEPRESSION ASSESSMENT [facility] Start: 2020 RSV Vaccine (1 - 1-dose 60+ series) RSV Vaccine (1 - 1-dose 60+ series) [facility] Start: 03-15-2017 End: 05-10-2017 Follow Up Appt 6 months Follow Up Appt 6 months [facility] Work Phone: Start: 10-07-2016 End: 10-12-2016 Follow Up Appt 3 months Follow Up Appt 3 months [facility] Work Phone: Start: 08-24-2016 End: 10-01-2016 Follow Up Appt Other Follow Up Appt Other [facility] Work Phone: Start: 2010 SHINGRIX VACCINE (1 of 2) SHINGRIX VACCINE (1 of 2) [facility] Start: 2005 COLOGUARD (FIT-DNA) COLOGUARD (FIT-DNA) [facility] Start: 2005 Colonoscopy COLONOSCOPY [facility] Start: 2005 COLORECTAL CANCER SCREENING COLORECTAL CANCER SCREENING [facility] Start: [address] COLONOGRAPHY [facility] Start: 2005 FECAL OCCULT BLOOD FECAL OCCULT BLOOD [facility] Start: 2005 Screening for malignant neoplasm of colon [facility] Start: 2005 SIGMOIDOSCOPY SIGMOIDOSCOPY [facility] Start: 1979 Urine microalbumin profile [facility] Start: 1978 BP Controlled (<130/80) BP Controlled (<130/80) [facility] Start: 1978 HEPATITIS C SCREENING HEPATITIS C SCREENING [facility] Start: 1978 Hepatitis C screening Hepatitis C Screening [facility] Start: 1978 HIV SCREENING HIV SCREENING [facility] Start: 1978 HIV screening HIV Screening [facility] Start: 02-09-1961 COVID-19 VACCINE (#1) COVID-19 VACCINE (#1) [facility] Amphetamines [Presen ce] in Urine by Screen method >1000 ng/mL [facility] Benzodiazepine measurement, urine [facility] Cocaine measurement, urine [facility] COLOGUARD COLOGUARD Lab Ro utine Screening for colon cancer Ordered: 03/29/2024 [facility] Work Phone: Comment on above: Ordered: 03/29/2024 Ethanol [Mass/volume ] in Serum or Plasma [facility] fentaNYL [Presence] in Urine by Screen method [facility] Folate [Moles/volume ] in Serum or Plasma [facility] Methadone measuremen t, urine [facility] Patient Education [facility] Work Phone: Patient referral [facility] Work Phone: Phencyclidine [Presence] in Urine [facility] Troponin T.cardiac [Mass/volume] in Serum or Plasma by High sensitivity method [facility] Urine cannabinoid measurement [facility] Urine opiate measurement [facility] Immunizations Immunization Date Immunization Notes Care Provider Shweta thomas 08-25-2021 influenza virus vacc ine, unspecified formulation Beto Fofana MD Work Phone: [facility] Payers Date Payer Category Payer Self-pay 2014 Unknown [id number] 2014 Unknown [id number] Unknown [employer] [id number] Unknown [id number] 2.16.8 [id number] Unknown [id number] 2.16.8 [id number] Unknown [id number] 2.16.8 [id number] Unknown [id number] 2.16.8 [id number] Unknown [id number] 2.16.8 [id number] Unknown [id number] 2.16.8 [id number] Unknown [id number] 2.16.8 [id number] Unknown [id number] 2.16.8 [id number] Unknown [id number] 2.16.8 [id number] Unknown [id number] 2.16.8 [id number] Social History Date Type Detail Facility Start: 03-05-2016 End: 02-14-2025 Tobacco smoking status KYIS Never smoked tobacco [facility] Start: 03-31-2016 End: 03-29-2024 Alcohol intake Current drinker of alcohol (finding) [facility] Start: 03-05-2016 History SDOH Alcohol Comment occasional Beer [facility] Start: 1960 Sex Assigned At Not on file [facility] Start: 03-29-2024 End: 04-04-2024 Gender identity Not on file [facility] Start: 03-29-2024 End: 04-04-2024 History of Social function [facility] Has the [employer] threatened to shut off services in your home in past 12Mo No [facility] Do you belong to any clubs or organizations such as mu-ism groups, unions, fraternal or athletic groups, or school groups? Yes [facility] Are you now , , , , never or living with a partner? [facility] How often to you hav e a drink containing alcohol? Monthly or less [facility] How many standard dr inks containing alcohol do you have on a typical day? 1 or 2 [facility] How often do you hav e 6 or more drinks on 1 occasion? Never [facility] How hard is it for y ou to pay for the very basics like food, housing, medical care, and heating Patient unable to answer [facility] Do you feel stress - tense, restless, nervous, or anxious, or unable to sleep at night because your mind is troubled all the time - these days [OSQ] Not at all [facility] (I/We) worried wheth er (my/our) food would run out before (I/we) got money to buy more. Never true [facility] Start: 1960 Sex Assigned At Male [facility] Medical Equipment Procedure Code Equipment Code Equipment Origin al Text Equipment Identifier Dates Patch Ventralex St Sepra Sorbaflex 2.5in Medium [place] [employer] - [id number] Start: 03-24-2016 Goals Date Patient Goal Desired Activity /State Functional Status Date Assessment Result Facility 02-15-2025 Functional status Ambulates [facility] Work Phone: Mental Status Date Assessment Result Facility 02-15-2025 Cognitive function Voice/Name [facility] Work Phone: 02-14-2025 Cognitive function Voice/Name [facility] Work Phone: Clinical Notes 07-13-2022 to 02-15-2025 Note Date & Type Note Facility 02-15-2025 Consult note Note Date/Time February 15, 2025 1:17pm [facility] Medical Records Department [address] [place] [id number] Consultation - Neurology 02/15/25 1306 MR#: [id number] Acct: [id number] Name: STANLEY CORRALES Rep #:[id number] : 1960 64 From: Erin Prabhakar MD PCP: Care Physician,No Primary Status :ADM LEANNE Location: [place] [address] Assessment and Plan: Stroke Assessment/Plan STANLEY CORRALES is a 64 M with a history of essential hypertension, hyperlipidemia, obesity, has numbness of left face and arm since yesterday Neurological examination shows non focal examination. Neuroimaging shows CTA: negative, MRI: R thalamic stroke. ECHO = EF 65%, LA mild enlargement. Right thalamic stroke suspect small vessel disease Plan Continue ASA. Add Plavix. DAPT for 21 days then ASA alone HTN: Permissive hypertension acutely and senior living will need it under control HLD: Target LDL 70. Adjust stain to keep LDL in target range Sleep study as out patient PT, OT evaluation Thanks for consultation. Spent 70 min in evaluation and management HPI Consult Data Date of Consult: 02/15/25 HPI Narrative HPI Narrative: STANLEY CORRALES, is a 64 M with a past medical history of essential hypertension, hyperlipidemia, obesity, has numbness of the left hand and face especially at the lips. It started yesterday in the afternoon and is persistent.He denies having weakness, slurred speech. He denies other symptoms. [facility] Medical History Gout Knee pain Hypertension Home Medications ?Medication ?Instructions ?Recorded ?Last Taken ?Type rosuvastatin 20 mg tablet (Crestor) 20 mg PO DAILY 02/13/25 History amlodipine 5 mg tablet 5 mg PO QDAY 07/07/24 History olmesartan 20 mg tablet 20 mg PO QDAY 07/07/2402/13 History allopurinol 100 mg tablet 100 mg PO Q12H 11/01/2404/04 History Allergy/AdvReac Type Severity Reaction Status Date / Time No Known Allergies Allergy Verified 02/15/25 00:45 Surgical History History of hernia surgery Social History Smoking Status: Never smoker alcohol intake: current Vital Signs Vital Signs Vital Signs: 02/14/25 20:22 02/14/25 20:32 02/14/25 20:32 Temperature 98.0 F Temperature Source Temporal Pulse Rate 81 79 Respiratory Rate 18 16 Respiratory Effort Respiratory Depth Respiratory Pattern Blood Pressure 191/89 H 185/93 H Blood Pressure Mean 123 123 Blood Pressure Source Blood Pressure Position Blood Pressure Location Pulse Ox 97 95 Oxygen Delivery Method Room Air Room Air Room Air 02/14/25 20:32 02/14/25 21:05 02/14/25 21:30 Temperature Temperature Source Pulse Rate 81 86 76 Respiratory Rate 16 18 18 Respiratory Effort Respiratory Depth Respiratory Pattern Blood Pressure 185/93 H 167/99 H 136/71 H Blood Pressure Mean 123 121 92 Blood Pressure Source Blood Pressure Position Blood Pressure Location Pulse Ox 94 98 99 Oxygen Delivery Method Room Air Room Air Room Air 02/14/25 22:00 02/14/25 22:30 02/14/25 23:00 Temperature Temperature Source Pulse Rate 71 72 75 Respiratory Rate 18 18 18 Respiratory Effort Respiratory Depth Respiratory Pattern Blood Pressure 168/97 H 168/77 H 172/96 H Blood Pressure Mean 120 107 121 Blood Pressure Source Blood Pressure Position Blood Pressure Location Pulse Ox 99 99 95 Oxygen Delivery Method Room Air Room Air 02/14/25 23:54 02/15/25 00:26 02/15/25 00:26 Temperature 98 F 98.3 F Temperature Source Oral Pulse Rate 75 79 Respiratory Rate 18 16 Respiratory Effort Normal Non-Labored Respiratory Depth Normal Respiratory Pattern Normal Blood Pressure 172/96 H 170/95 H Blood Pressure Mean 121 120 Blood Pressure Source Monitor Blood Pressure Position Semi-Fowlers Blood Pressure Location Right Arm Pulse Ox 97 98 Oxygen Delivery Method Room Air Room Air 02/15/25 04:25 02/15/25 04:25 02/15/25 08:15 Temperature 97.8 F 98.2 F Temperature Source Oral Oral Pulse Rate 70 73 Respiratory Rate 16 17 Respiratory Effort Normal Non-Labored Respiratory Depth Normal Respiratory Pattern Normal Blood Pressure 155/84 H 183/95 H Blood Pressure Mean 107 124 Blood Pressure Source Monitor Monitor Blood Pressure Position Supine Semi-Fowlers Blood Pressure Location Right Arm Right Arm Pulse Ox 98 97 Oxygen Delivery Method Room Air Room Air Room Air 02/15/25 08:43 Temperature Temperature Source Pulse Rate Respiratory Rate Respiratory Effort Respiratory Depth Respiratory Pattern Blood Pressure Blood Pressure Mean Blood Pressure Source Blood Pressure Position Blood Pressure Location Pulse Ox Oxygen Delivery Method Room Air Weight Weight: 113.3 kg Body Mass Index (BMI) 33.8 Physical Exam Const alert, oriented x3 and no apparent distress General Appearance: cooperative and comfortable Neuro Neuro Narrative: Awake, alert oriented X3 No aphasia or dysarthria CN 2-12 intact Power 5/5 Sensation: Intact No ataxia Lab / Micro Data 02/14/25 20:35 02/14/25 20:35 Labs: Laboratory Results - last 24 hr 02/14/25 20:35: WBC 5.6, RBC 4.50 L, Hgb 14.5, Hct 42.2, MCV 93.8, MCH 32.2 H, MCHC 34.4, RDW Std Deviation 43.1, RDW Coeff of Jaguar 12.5, Plt Count 277, MPV 8.4, Immature Gran % (Auto) 0.700, Neut % (Auto) 48.8, Lymph % (Auto) 37.3, [place]% (Auto) 10.4 H, Eos % (Auto) 2.1, Baso % (Auto) 0.7, Absolute Neuts (auto) 2.7,Absolute Lymphs (auto) 2.09, Nucleated RBC % 0, PT 12.3, INR 0.9, APTT 24.3, Sodium 140, Potassium 3.8, Chloride 103, Carbon Dioxide 22.5, Anion Gap 15, BUN 9, Creatinine 0.77, Estim Creat Clear Calc 127.11, Est GFR (MDRD) Non-Af 100, BUN/Creatinine Ratio 11.4, Glucose 105 H, Hemoglobin A1c 5.8 H, Calcium 9.7, Troponin T High Sens 15, TSH 2.720 02/14/25 23:24: Troponin T Hi Sens 2 Hr 15, Vitamin B12 476, Serum Folate 25.70,Ethyl Alcohol < 10.1 02/15/25 01:40: Troponin T Hi Sens 4Hr 17, Triglycerides 177, Cholesterol 284 H,LDL Cholesterol, Calc 201, VLDL Cholesterol 35, HDL Cholesterol 47, Cholesterol/HDL Ratio 5.99 02/15/25 01:55: Urine Opiates Screen NEGATIVE, U Buprenorphine Qual NEGATIVE, UrOxycodone Screen NEGATIVE, Urine Methadone Screen NEGATIVE, Urine Fentanyl Screen NEGATIVE, Ur Barbiturates Screen NEGATIVE, Ur Phencyclidine Scrn NEGATIVE, Ur Amphetamines Screen NEGATIVE, U Benzodiazepines Scrn NEGATIVE, Urine Cocaine Screen NEGATIVE, U Cannabinoids Screen NEGATIVE Imaging Radiology Impression Brain CT 02/14/25 20:26 IMPRESSION: No acute intracranial abnormality. Reading Location: [facility] Head/Neck CTA 02/14/25 20:42 IMPRESSION: Scattered atherosclerotic calcification without hemodynamically significant stenosis. No evidence of acute occlusion or thrombosis. 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 Reading [facility] Echocardiogram 02/14/25 22:56 Interpretation Summary The LV systolic function is normal. EF is 65 %. The left atrium is mildly enlarged. Bubble contrast study is negative for PFO/ASD. Ordering Physician: Sebastian Maya Performed By: Jony Trejo RCS Brain MRI 02/15/25 06:00 IMPRESSION: Mild brain parenchymal atrophy. 1 cm area of acute infarction involving the right thalamus. This does demonstrate some increased signal on the FLAIR sequence. There are additional small scattered foci of increased T2/FLAIR signal in the deep white matter structures of the cerebral hemispheres, which may be on the basis of chronic small-vessel ischemic disease. [place] Alert: 1 cm acute infarct right thalamus. The critical information above was relayed directly by me by telephone to the patient's nurse, Silvia, on 02/15/2025 at 11:56 am with readback verification. Reading Location[facility] Active Medications Active Medications Active Medications: Current Medications Generic Name Dose Route Start Last Admin Trade Name Freq PRN Reason Stop Dose Admin Acetaminophen 650 mg 02/15/25 00:26 Acetaminophen 325 Mg Tablet PO Q6H PRN PRN Pain 1-10 Or Fever>99.6 Allopurinol 100 mg 02/15/25 08:00 02/15/25 08:20 Allopurinol 100 Mg Tablet PO 100 mg DAILYCM MIRYAM Administration Aspirin 81 mg 02/15/25 08:00 02/15/25 08:20 Aspirin 81 Mg Tab.Chew PO 81 mg DAILYCM MIRYAM Administration Atorvastatin Calcium 40 mg 02/15/25 22:00 Atorvastatin Calcium 40 Mg Tablet PO 2200 [facility] Heparin Sodium (Porcine) 5,000 unit 02/15/25 10:00 02/15/25 08:20 Heparin Injection (Vial) 5,000 Unit/Ml Vial SC 5,000 unit Q12 MIRYAM Administration Sodium Chloride 250 mls @ 15 mls/hr 02/15/25 00:30 IV .[id number] PRN Saline Flush Sodium Chloride 250 mls @ 15 mls/hr 02/15/25 00:30 IV .[id number] PRN Additional IVPB Infusion Sodium Chloride 10 - 40 ml 02/15/25 00:30 0.9% Saline Lock 10 Ml Syringe IV UD PRN SALINE FLUSH NIHSS NIHSS Nursing Documentation NIHSS Nursing Documentation: NIHSS: Ischemic Stroke/TIA Start: 02/15/25 00:26 Text: For PCU Patients: NIH and Neuro Check every 4 Status: Active hours, PRN and with change in RN caregiver. Freq: [id number] Protocol: Activity Type Activity Date Activity User E-sign Co-sign Detail Recorded Client Recorded Date Recorded By Document 02/15/25 12:15 EM [id number] 02/15/25 12:49 EM 02/15/25 12:15 NIH Stroke Scale [NIHSS] A score of 0 is normal or asymptomatic . Total possible score is 42. Inpatient: RN or Physician to activate a stroke alert for onset of new stroke symptoms or with NIHSS increase >/= 3 points. Following change in neurological status, NIHSS will be performed per physician order or more frequently PRN. -1a. Level of Consciousness 0 - Alert; keenly responsive -1b. LOC Questions 0 - Answers BOTH questions correctly -1c. LOC Commands 0 - Performs BOTH tasks correctly -2. Best Gaze 0 - Normal -3. Visual 0 - No visual loss -4. Facial Palsy 0 - Normal symmetrical movements -5a. Left Arm 0 - No drift; arm holds 90 ( or 45) degrees for full 10 seconds -5b. Right Arm 0 - No drift; arm holds 90 ( or 45) degrees for full 10 seconds -6a. Left Leg 0 - No drift; leg holds 30- degree position for full 5 seconds -6b. Right Leg 0 - No drift; leg holds 30- degree position for full 5 seconds -7. Limb Ataxia 0 - Absent -8. Sensory 0 - Normal; no sensory loss -9. Best Language 0 - No aphasia; normal -10. Dysarthria 0 - Normal -11. Extinction and Inattention 0 - No abnormality -Total 0 Query Text:A score of 0 is normal or asymptomatic. Total possible score is 42 . ED: Notify Physician for NIHSS increase by > / = 3 points. Inpatient: RN or Physician to activate a stroke alert for NIHSS increase of > / = 3 points. Coma Scale [Assess] -Eye Opening Spontaneous -Motor Obeys Commands -Verbal Oriented [Total] -Coma Scale Total 15 NIHSS 1a. Level of Consciousness: 0 - Alert; keenly responsive 1b. LOC Questions: 0 - Answers BOTH questions correctly 1c. LOC Commands: 0 - Performs BOTH tasks correctly 2. Best Gaze: 0 - Normal 3. Visual: 0 - No visual loss 4. Facial Palsy: 0 - Normal symmetrical movements 5a. Left Arm: 0 - No drift; arm holds 90 (or 45) degrees for full 10 seconds 5b. Right Arm: 0 - No drift; arm holds 90 (or 45) degrees for full 10 seconds 6a. Left Le - No drift; leg holds 30-degree position for full 5 seconds 6b. Right Le - No drift; leg holds 30-degree position for full 5 seconds 7. Limb Ataxia: 0 - Absent 8. Sensory: 0 - Normal; no sensory loss 9. Best Language: 0 - No aphasia; normal 10. Dysarthria: 0 - Normal 11. Extinction and Inattention: 0 - No abnormality Total: 0 02/15/25 1317 <Electronically signed by Erin Prabhakar MD> Cosigner Signature (if applicable): CC: No Primary Care Physician~ Signed [facility] Work Phone: 1(477) 870-541805-08-2025 Discharge summary [facility] Medical Records Department [address] [place] [address] Discharge Summary 02/15/25 1504 MR#: [id number] Acct: [id number] Name: STANLEY CORRALES GARETH Rep #:[id number] : 1960 64 From: Reuben Parker DO PCP: Care Physician,No Primary Status :ADM LEANNE Location: [place] [address] Providers Date of Admission: 02/14/25 Primary Care Physician: No Primary Care Phys Consultations 02/15/25 00:26 Consult: Tele-Neurology Routine Consulting Provider: [facility] Reason for Consult: Acute Ischemic Stroke/TIA EMERGENT Consult: No MD Notified: Yes Date Notified: 02/15/25 Time Notified: 01:46 Method of Notification: Answering Service Method of Consult:: Telemedicine Nursing Unit Staff Notify [facility] of Tele-Neurology Consult: Yes Reason For Visit: LEFT FACE AND HAND PARATHEISAS, Diagnosis Discharge Diagnosis (1) Thalamic stroke: Status: Acute Code(s): I63.81 - Other cerebral infarction due to occlusion or stenosis of small artery Plan: left hand and face onset 1200 on 02/14 CVA work up underway. MRI of the brain showed 1 cm area of acute infarct involving the right thalamus. Patient was seen by [facility] recommends 21 days of aspirin and clopidogrel and then aspirin thereafter. Goal LDL 70 or less. LDL here was 201. Patient will be on high intensity statin. Patient advised to follow-up with neurology as outpatient as well. (2) Hypertensive emergency: Status: Acute Code(s): I16.1 - Hypertensive emergency Plan: permissive HTN for initially and then to continue with antihypertensive. Likelypatient had hypertensive level due to maintaining cerebral perfusion pressure after his stroke. Plan VTE prophylaxis: SQ heparin. Medications at Discharge Home Medications amlodipine 5 mg tablet 5 mg PO QDAY 07/07/24 olmesartan 20 mg tablet 20 mg PO QDAY 07/07/24 allopurinol 100 mg tablet 100 mg PO Q12H 11/01/24 aspirin 81 mg chewable tablet 81 mg PO DAILYCM #0 tabs 02/15/25 atorvastatin 80 mg tablet 80 mg PO QHS #30 tabs 02/15/25 clopidogrel 75 mg tablet 75 mg PO DAILY #21 tabs 02/15/25 Weight / BMI Weight Weight: 113.3 kg Body Mass Index (BMI) 33.8 ABG / Lab / Microbiology Data 02/14/25 20:35 02/14/25 20:35 Laboratory: Laboratory Results - last 24 hr 02/14/25 20:35: WBC 5.6, RBC 4.50 L, Hgb 14.5, Hct 42.2, MCV 93.8, MCH 32.2 H, MCHC 34.4, RDW Std Deviation 43.1, RDW Coeff of Jaguar 12.5, Plt Count 277, MPV 8.4, Immature Gran % (Auto) 0.700, Neut % (Auto) 48.8, Lymph % (Auto) 37.3, [place]% (Auto) 10.4 H, Eos % (Auto) 2.1, Baso % (Auto) 0.7, Absolute Neuts (auto) 2.7,Absolute Lymphs (auto) 2.09, Nucleated RBC % 0, PT 12.3, INR 0.9, APTT 24.3, [id number], Potassium 3.8, Chloride 103, Carbon Dioxide 22.5, Anion Gap 15, BUN 9, Creatinine 0.77, Estim Creat Clear Calc 127.11, Est GFR (MDRD) Non-Af 100, BUN/Creatinine Ratio 11.4, Glucose 105 H, Hemoglobin A1c 5.8 H, Calcium 9.7, Troponin T High Sens 15, TSH 2.720 02/14/25 23:24: Troponin T Hi Sens 2 Hr 15, Vitamin B12 476, Serum Folate 25.70,Ethyl Alcohol < 10.1 02/15/25 01:40: Troponin T Hi Sens 4Hr 17, Triglycerides 177, Cholesterol 284 H,LDL Cholesterol, Calc 201, VLDL Cholesterol 35, HDL Cholesterol 47, Cholesterol/HDL Ratio 5.99 02/15/25 01:55: Urine Opiates Screen NEGATIVE, U Buprenorphine Qual NEGATIVE, UrOxycodone Screen NEGATIVE, Urine Methadone Screen NEGATIVE, Urine Fentanyl Screen NEGATIVE, Ur Barbiturates Screen NEGATIVE, Ur Phencyclidine Scrn NEGATIVE, Ur Amphetamines Screen NEGATIVE, U Benzodiazepines Scrn NEGATIVE, Urine Cocaine Screen NEGATIVE, U Cannabinoids Screen NEGATIVE Radiography Diagnostic Testing: Radiology Impression Brain CT 02/14/25 20:26 IMPRESSION: No acute intracranial abnormality. Reading Location: [facility] Head/Neck CTA 02/14/25 20:42 IMPRESSION: Scattered atherosclerotic calcification without hemodynamically significant stenosis. No evidence of acute occlusion or thrombosis. 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 Reading Location: [facility] Carotid Duplex 02/14/25 22:56 Interpretation Summary Mild (<50%) stenosis right extracranial internal carotid. Mild (<50%) stenosis left extracranial internal carotid. Patent and antegrade vertebrals bilaterally. Ordering Physician: Sebastian Maya Referring Physician: N/A Performed By: Jesse Gonzales, RVT Echocardiogram 02/14/25 22:56 Interpretation Summary The LV systolic function is normal. EF is 65 %. The left atrium is mildly enlarged. Bubble contrast study is negative for PFO/ASD. Ordering Physician: Sebastian Maya Performed By: Jony Trejo RCS Brain MRI 02/15/25 06:00 IMPRESSION: Mild brain parenchymal atrophy. 1 cm area of acute infarction involving the right thalamus. This does demonstrate some increased signal on the FLAIR sequence. There are additional small scattered foci of increased T2/FLAIR signal in the deep white matter structures of the cerebral hemispheres, which may be on the basis of chronic small-vessel ischemic disease. [place] Alert: 1 cm acute infarct right thalamus. The critical information above was relayed directly by me by telephone to the patient's nurse, Silvia, on 02/15/2025 at 11:56 am with readback verification. Reading Location: [facility] Instructions Discharge Diet: Low fat / Low cholesterol DC O2, CPAP, BIPAP Needs Home O2 Discharge instructions: No Meaningful Use Info Meaningful Use Meaningful Use Diagnoses (Choose all that apply): Ischemic CVA CVA Therapy Assessed for PT,OT and/or ST?: Yes Ischemic Stroke Antithrombotic order at d/c?: Yes Dx of Atrial fib/flutter?: No Anticoagulant at discharge?: No Reason anticoagulant not ordered: Treatment not Indicated Statin Dosing Therapy Reference: STATIN DOSE THERAPY REFERENCE: * Patients > 75 years receive moderate or high dose statin therapy. * Patients 75 years or YOUNGER should receive HIGH intensity statin dose unless contraindicated. You will be required to document reason for non-treatment if statin daily dose does not meet guidelines. HIGH DOSE STATIN THERAPY DAILY Atorvastatin > than or = to 40 mg Rosuvastatin > than or = to 20 mg Amlodipine + Atorvastatin > than or = to 2.5/40 mg Ezetimibe + Simvastatin 10/80 mg Simvastatin 80mg Statins at discharge?: Yes If patient is 75 or younger, pt will be discharged on HIGH intensity statin.: Yes Primary Dx Acute Ischemic CVA?: Yes IV thrombolytic ordered during stay?: No Reason IV thrombolytic not ordered: Treatment not Indicated Discharge Plan Admission Admit Date/Time: 02/14/25 22:51 Primary Reason for Your Visit: stroke Attending Provider: Reuben Parker Primary Care Provider: Care Physician,Armida Primary Consulting Providers: Teto Navas; Berna Jean; Erin Prabhakar; Suly North; Carolyn Rai; Kike Nguyen; Nadine Dumas; William Menon; Jono Hope; Preston Lubin; Vivian Ortega; Anshu Fernandez; Christa Ye; Abraham Sánchez; Angelica Christine; Gustavo Gomez; Oswaldo Campos; David Johnson; Lizzy Erazo; Tia Zarco;Sebastian Maya Instructions Patient Instructions: Stroke Brain Body Effects, Stroke: Taking Medicines Additional Instructions / Restrictions: Follow-up with neurology as outpatient. May follow-up with Dr. Bonds here or another neurologist.[facility] [phone]. [facility] [place] [phone]. [facility] [place] [phone]. [facility] [phone]. [facility] [phone]. He will be on aspirin and Plavix for 21 days. After 21 days then you will just take aspirin. Discharge Orders/Prescriptions Prescriptions: New aspirin 81 mg Tablet,Chewable 81 mg PO DAILYCM Qty: 0 0RF clopidogrel 75 mg tablet 75 mg PO DAILY Qty: 21 0RF atorvastatin 80 mg tablet 80 mg PO QHS Qty: 30 0RF Continued olmesartan 20 mg tablet 20 mg PO QDAY amlodipine 5 mg tablet 5 mg PO QDAY allopurinol 100 mg tablet 100 mg PO Q12H Discontinued rosuvastatin [Crestor] 20 MG tablet 20 mg PO DAILY Referrals / Follow Up: [facility] [Provider Group] - Within 1 Month Beto Fofana MD [Non-Staff] - Within 2 Weeks Care Physician,No Primary [Primary Care Provider] - Disposition Disposition (needs filled in before D/C Order can be placed): Home, Self Care Charges/Coding Visit Charges Inpatient E&M: 43621 Disch Hosp >30min 02/15/25 1511 Cosigner Signature (if applicable): CC: Dr. Reuben Parker DO; No Primary Care Physician~ Signed [facility]05-08-2025 [facility] Medical Records Department [address] [place] [address] Discharge Summary 02/15/25 1504 MR#: [id number] Acct: [id number] Name: STANLEY CORRALES GARETH Rep #: [id number] : 1960 64 From: Reuben Parker DO PCP: Care Physician,No Primary Status:ADM LEANNE Location: [place] [address] Providers Date of Admission: 02/14/25 Primary Care Physician: No Primary Care Phys Consultations 02/15/25 00:26 Consult: Tele-Neurology Routine Consulting Provider: [facility] Reason for Consult: Acute Ischemic Stroke/TIA EMERGENT Consult: No MD Notified: Yes Date Notified: 02/15/25 Time Notified: 01:46 Method of Notification: Answering Service Method of Consult:: Telemedicine Nursing Unit Staff Notify [facility] of Tele-Neurology Consult: Yes Reason For Visit: LEFT FACE AND HAND PARATHEISAS, Diagnosis Discharge Diagnosis (1) Thalamic stroke: Status: Acute Code(s): I63.81 - Other cerebral infarction due to occlusion or stenosis of small artery Plan: left hand and face onset 1200 on 02/14 CVA work up underway. MRI of the brain showed 1 cm area of acute infarct involving the right thalamus. Patient was [facility] by [facility] recommends 21 days of aspirin and clopidogrel and then aspirin thereafter. Goal LDL 70 or less. LDL here was 201. Patient will be on high intensity statin. Patient advised to follow-up with neurology as outpatient as well. (2) Hypertensive emergency: Status: Acute Code(s): I16.1 - Hypertensive emergency Plan: permissive HTN for initially and then to continue with antihypertensive. Likely patient had hypertensive level due to maintaining cerebral perfusion pressure after his stroke. Plan VTE prophylaxis: SQ heparin. Medications at Discharge Home Medications amlodipine 5 mg tablet 5 mg PO QDAY 07/07/24 olmesartan 20 mg tablet 20 mg PO QDAY 07/07/24 allopurinol 100 mg tablet 100 mg PO Q12H 11/01/24 aspirin 81 mg chewable tablet 81 mg PO DAILYCM #0 tabs 02/15/25 atorvastatin 80 mg tablet 80 mg PO QHS #30 tabs 02/15/25 clopidogrel 75 mg tablet 75 mg PO DAILY #21 tabs 02/15/25 Weight / BMI Weight Weight: 113.3 kg Body Mass Index (BMI) 33.8 ABG / Lab / Microbiology Data 02/14/25 20:35 02/14/25 20:35 Laboratory: Laboratory Results - last 24 hr 02/14/25 20:35: WBC 5.6, RBC 4.50 L, Hgb 14.5, Hct 42.2, MCV 93.8, MCH 32.2 H, MCHC 34.4, RDW Std Deviation 43.1, RDW Coeff of Jaguar 12.5, Plt Count 277, MPV 8.4, Immature Gran % (Auto) 0.700, Neut % (Auto) 48.8, Lymph % (Auto) 37.3, [place] % (Auto) 10.4 H, Eos % (Auto) 2.1, Baso % (Auto) 0.7, Absolute Neuts (auto) 2.7, Absolute Lymphs (auto) 2.09, Nucleated RBC % 0, PT 12.3, INR 0.9, APTT 24.3, Sodium 140, Potassium 3.8, Chloride 103, Carbon Dioxide 22.5, Anion Gap 15, BUN 9, Creatinine 0.77, Estim Creat Clear Calc 127.11, Est GFR (MDRD) Non-Af 100, BUN/Creatinine Ratio 11.4, Glucose 105 H, Hemoglobin A1c 5.8 H, Calcium 9.7, Troponin T High Sens 15, TSH 2.720 02/14/25 23:24: Troponin T Hi Sens 2 Hr 15, Vitamin B12 476, Serum Folate 25.70, Ethyl Alcohol < 10.1 02/15/25 01:40: Troponin T Hi Sens 4Hr 17, Triglycerides 177, Cholesterol 284 H, LDL Cholesterol, Calc 201, VLDL Cholesterol 35, HDL Cholesterol 47, Cholesterol/HDL Ratio 5.99 02/15/25 01:55: Urine Opiates Screen NEGATIVE, U Buprenorphine Qual NEGATIVE, Ur Oxycodone Screen NEGATIVE, Urine Methadone Screen NEGATIVE, Urine Fentanyl Screen NEGATIVE, Ur Barbiturates Screen NEGATIVE, Ur Phencyclidine Scrn NEGATIVE, Ur Amphetamines Screen NEGATIVE, U Benzodiazepines Scrn NEGATIVE, Urine Cocaine Screen NEGATIVE, U Cannabinoids Screen NEGATIVE Radiography Diagnostic Testing: Radiology Impression Brain CT 02/14/25 20:26 IMPRESSION: No acute intracranial abnormality. Reading Location: [facility] Head/Neck CTA 02/14/25 20:42 IMPRESSION: Scattered atherosclerotic calcification without hemodynamically significant stenosis. No evidence of acute occlusion or thrombosis. 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 Reading Location: [facility] Carotid Duplex 02/14/25 22:56 Interpretation Summary Mild (<50%) stenosis right extracranial internal carotid. Mild (<50%) stenosis left extracranial internal carotid. Patent and antegrade vertebrals bilaterally. Ordering Physician: Sebastian Maya Referring Physician: N/A Performed By: Jesse Gonzales, RVT Echocardiogram 02/14/25 22:56 Interpretation Summary The LV systolic function is normal. EF is 65 %. The left atrium is mildly enlarged. Bubble contrast study is (more content not included)...[facility]05-08-2025 Progress note [facility] Medical Records Department [address] [place] [address] Progress Note - Hospitalist 02/15/25829 MR#: [id number] Acct: [id number] Name: STANLEY CORRALES GARETH Rep #:[id number] : 1960 64 From: Reuben Parker DO PCP: Care Physician,No Primary Status :ADM LEANNE Location: [place] [address] Reason for Visit Reason for Visit: Diagnoses Obesity, class 1 (02/14/25) Essential (primary) hypertension (02/14/25) Hypertensive emergency (02/14/25) Paresthesia of skin (02/14/25) Subjective Subjective Feels well, still with left face and finger paresthesias. Objective Data Objective Data Vital Signs: Vital Signs Temp Pulse Resp BP Pulse Ox O2 Del Method 36.8 C 73 17 183/95 H 97 Room Air 02/15/25 08:15 02/15/25 08:15 02/15/25 08:15 02/15/25 08:15 02/15/25 08:15 02/15/25 08:15 Oxygen Delivery Method Room Air Weight: 113.3 kg Body Mass Index (BMI) 33.8 Lab / Micro Data 02/14/25 20:35 02/14/25 20:35 Labs: Laboratory Results - last 24 hr 02/14/25 20:35: WBC 5.6, RBC 4.50 L, Hgb 14.5, Hct 42.2, MCV 93.8, MCH 32.2 H, MCHC 34.4, RDW Std Deviation 43.1, RDW Coeff of Jaguar 12.5, Plt Count 277, MPV 8.4, Immature Gran % (Auto) 0.700, Neut % (Auto) 48.8, Lymph % (Auto) 37.3, [place]% (Auto) 10.4 H, Eos % (Auto) 2.1, Baso % (Auto) 0.7, Absolute Neuts (auto) 2.7,Absolute Lymphs (auto) 2.09, Nucleated RBC % 0, PT 12.3, INR 0.9, APTT 24.3, [id number], Potassium 3.8, Chloride 103, Carbon Dioxide 22.5, Anion Gap 15, BUN 9, Creatinine 0.77, Estim Creat Clear Calc 127.11, Est GFR (MDRD) Non-Af 100, BUN/Creatinine Ratio 11.4, Glucose 105 H, Hemoglobin A1c 5.8 H, Calcium 9.7, Troponin T High Sens 15, TSH 2.720 02/14/25 23:24: Troponin T Hi Sens 2 Hr 15, Vitamin B12 476, Serum Folate 25.70,Ethyl Alcohol < 10.1 02/15/25 01:40: Troponin T Hi Sens 4Hr 17, Triglycerides 177, Cholesterol 284 H,LDL Cholesterol, Calc 201, VLDL Cholesterol 35, HDL Cholesterol 47, Cholesterol/HDL Ratio 5.99 02/15/25 01:55: Urine Opiates Screen NEGATIVE, U Buprenorphine Qual NEGATIVE, UrOxycodone Screen NEGATIVE, Urine Methadone Screen NEGATIVE, Urine Fentanyl Screen NEGATIVE, Ur Barbiturates Screen NEGATIVE, Ur Phencyclidine Scrn NEGATIVE, Ur Amphetamines Screen NEGATIVE, U Benzodiazepines Scrn NEGATIVE, Urine Cocaine Screen NEGATIVE, U Cannabinoids Screen NEGATIVE Radiography Diagnostic Testing: Radiology Impression Brain CT 02/14/25 20:26 IMPRESSION: No acute intracranial abnormality. Reading Location: [facility] Head/Neck CTA 02/14/25 20:42 IMPRESSION: Scattered atherosclerotic calcification without hemodynamically significant stenosis. No evidence of acute occlusion or thrombosis. 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 Reading Location: [facility] Physical Exam Const alert and no apparent distress HEENT head/scalp atraumatic and moist oral mucous membranes Extremity normal to inspection and no clubbing, cyanosis or edema Neuro no focal motor deficits and no sensory deficits noted Sensorium / Orientation: awake and alert Motor Exam: strength 5/5 throughout Assessment & Plan Assessment/Plan (1) Paresthesias: PLAN: left hand and face onset 1200 on 02/14 CVA work up underway. MRI of the brain showed 1 cm area of acute infarct involving the right thalamus. Patient was [facility] by [facility] recommends 21 days of aspirin and clopidogrel and then aspirin thereafter. Goal LDL 70 or less. LDL here was 201. Patient will be on high intensity statin. Patient advised to follow-up with neurology as outpatient as well. (2) Hypertensive emergency: PLAN: permissive HTN for initially and then to continue with antihypertensive. Likely patient had hypertensive level due to maintaining cerebral perfusion pressure after his stroke. PLAN: Plan VTE prophylaxis: SQ heparin. NIHSS NIHSS Nursing Documentation NIHSS Nursing Documentation: NIHSS: Ischemic Stroke/TIA Start: 02/15/25 00:26 Text: For PCU Patients: NIH and Neuro Check every 4 Status: Active hours, PRN and with change in RN caregiver. Freq: [id number] Protocol: Activity Type Activity Date Activity User E-sign Co-sign Detail Recorded Client Recorded Date Recorded By Document 02/15/25 08:16 EM [id number] 02/15/25 08:20 EM 02/15/25 08:16 NIH Stroke Scale [NIHSS] A score of 0 is normal or asymptomatic . Total possible score is 42. Inpatient: RN or Physician to activate a stroke alert for onset of new stroke symptoms or with NIHSS increase >/= 3 points. Following change in neurological status, NIHSS will be performed per physician order or more frequently PRN. -1a. Level of Consciousness 0 - Alert; keenly responsive -1b. LOC Questions 0 - Answers BOTH questions correctly -1c. LOC Commands 0 - Performs BOTH tasks correctly -2. Best Gaze 0 - Normal -3. Visual 0 - No visual loss -4. Facial Palsy 0 - Normal symmetrical movements -5a. Left Arm 0 - No drift; arm holds 90 ( or 45) degrees for full 10 seconds -5b. Right Arm 0 - No drift; arm holds 90 ( or 45) degrees for full 10 seconds -6a. Left Leg 0 - No drift; leg holds 30- degree position for full 5 seconds -6b. Right Leg 0 - No drift; leg holds 30- degree position for full 5 seconds -7. Limb Ataxia 0 - Absent -8. Sensory 0 - Normal; no sensory loss -9. Best Language 0 - No aphasia; normal -10. Dysarthria 0 - Normal -11. Extinction and Inattention 0 - No abnormality -Total 0 Query Text:A score of 0 is normal or asymptomatic. Total possible score is 42 . ED: Notify Physician for NIHSS increase by > / = 3 points. Inpatient: RN or Physician to activate a stroke alert for NIHSS increase of > / = 3 points. Coma Scale [Assess] -Eye Opening Spontaneous -Motor Obeys Commands -Verbal Oriented [Total] -Coma Scale Total 15 02/15/25 1504 Cosigner Signature (if applicable): CC: ~ Signed [facility]05-08-2025 Consult note [facility] Medical Records Department [address] [place] [address] Consultation - Neurology 02/15/25 1306 MR#: [id number] Acct: [id number] Name: STANLEY CORRALES Rep #:[id number] : 1960 64 From: Erin Prabhakar MD PCP: Care Physician,No Primary Status :ADM LEANNE Location: [place] [address] Assessment and Plan: Stroke Assessment/Plan STANLEY CORRALES is a 64 M with a history of essential hypertension, hyperlipidemia, obesity, has numbness of left face and arm since yesterday Neurological examination shows non focal examination. Neuroimaging shows CTA: negative, MRI: R thalamic stroke. ECHO = EF 65%, LA mild enlargement. Right thalamic stroke suspect small vessel disease Plan Continue ASA. Add Plavix. DAPT for 21 days then ASA alone HTN: Permissive hypertension acutely and senior living will need it under control HLD: Target LDL 70. Adjust stain to keep LDL in target range Sleep study as out patient PT, OT evaluation Thanks for consultation. Spent 70 min in evaluation and management HPI Consult Data Date of Consult: 02/15/25 HPI Narrative HPI Narrative: STANLEY CORRALES, is a 64 M with a past medical history of essential hypertension, hyperlipidemia, obesity, has numbness of the left hand and face especially at the lips. It started yesterday in the afternoon and is persistent.He denies having weakness, slurred speech. He denies other symptoms. [facility] Medical History Gout Knee pain Hypertension Home Medications ?Medication ?Instructions ?Recorded ?Last Taken ?Type rosuvastatin 20 mg tablet (Crestor) 20 mg PO DAILY 02/13/25 History amlodipine 5 mg tablet 5 mg PO QDAY 07/07/24 History olmesartan 20 mg tablet 20 mg PO QDAY 07/07/2402/13 History allopurinol 100 mg tablet 100 mg PO Q12H 11/01/24 05/0 04/04 History Allergy/AdvReac Type Severity Reaction Status Date / Time No Known Allergies Allergy Verified 02/15/25 00:45 Surgical History History of hernia surgery Social History Smoking Status: Never smoker alcohol intake: current Vital Signs Vital Signs Vital Signs: 02/14/25 20:22 02/14/25 20:32 02/14/25 20:32 Temperature 98.0 F Temperature Source Temporal Pulse Rate 81 79 Respiratory Rate 18 16 Respiratory Effort Respiratory Depth Respiratory Pattern Blood Pressure 191/89 H 185/93 H Blood Pressure Mean 123 123 Blood Pressure Source Blood Pressure Position Blood Pressure Location Pulse Ox 97 95 Oxygen Delivery Method Room Air Room Air Room Air 02/14/25 20:32 02/14/25 21:05 02/14/25 21:30 Temperature Temperature Source Pulse Rate 81 86 76 Respiratory Rate 16 18 18 Respiratory Effort Respiratory Depth Respiratory Pattern Blood Pressure 185/93 H 167/99 H 136/71 H Blood Pressure Mean 123 121 92 Blood Pressure Source Blood Pressure Position Blood Pressure Location Pulse Ox 94 98 99 Oxygen Delivery Method Room Air Room Air Room Air 02/14/25 22:00 02/14/25 22:30 02/14/25 23:00 Temperature Temperature Source Pulse Rate 71 72 75 Respiratory Rate 18 18 18 Respiratory Effort Respiratory Depth Respiratory Pattern Blood Pressure 168/97 H 168/77 H 172/96 H Blood Pressure Mean 120 107 121 Blood Pressure Source Blood Pressure Position Blood Pressure Location Pulse Ox 99 99 95 Oxygen Delivery Method Room Air Room Air 02/14/25 23:54 02/15/25 00:26 02/15/25 00:26 Temperature 98 F 98.3 F Temperature Source Oral Pulse Rate 75 79 Respiratory Rate 18 16 Respiratory Effort Normal Non-Labored Respiratory Depth Normal Respiratory Pattern Normal Blood Pressure 172/96 H 170/95 H Blood Pressure Mean 121 120 Blood Pressure Source Monitor Blood Pressure Position Semi-Fowlers Blood Pressure Location Right Arm Pulse Ox 97 98 Oxygen Delivery Method Room Air Room Air 02/15/25 04:25 02/15/25 04:25 02/15/25 08:15 Temperature 97.8 F 98.2 F Temperature Source Oral Oral Pulse Rate 70 73 Respiratory Rate 16 17 Respiratory Effort Normal Non-Labored Respiratory Depth Normal Respiratory Pattern Normal Blood Pressure 155/84 H 183/95 H Blood Pressure Mean 107 124 Blood Pressure Source Monitor Monitor Blood Pressure Position Supine Semi-Fowlers Blood Pressure Location Right Arm Right Arm Pulse Ox 98 97 Oxygen Delivery Method Room Air Room Air Room Air 02/15/25 08:43 Temperature Temperature Source Pulse Rate Respiratory Rate Respiratory Effort Respiratory Depth Respiratory Pattern Blood Pressure Blood Pressure Mean Blood Pressure Source Blood Pressure Position Blood Pressure Location Pulse Ox Oxygen Delivery Method Room Air Weight Weight: 113.3 kg Body Mass Index (BMI) 33.8 Physical Exam Const alert, oriented x3 and no apparent distress General Appearance: cooperative and comfortable Neuro Neuro Narrative: Awake, alert oriented X3 No aphasia or dysarthria CN 2-12 intact Power 5/5 Sensation: Intact No ataxia Lab / Micro Data 02/14/25 20:35 02/14/25 20:35 Labs: Laboratory Results - last 24 hr 02/14/25 20:35: WBC 5.6, RBC 4.50 L, Hgb 14.5, Hct 42.2, MCV 93.8, MCH 32.2 H, MCHC 34.4, RDW Std Deviation 43.1, RDW Coeff of Jaguar 12.5, Plt Count 277, MPV 8.4, Immature Gran % (Auto) 0.700, Neut % (Auto) 48.8, Lymph % (Auto) 37.3, [place]% (Auto) 10.4 H, Eos % (Auto) 2.1, Baso % (Auto) 0.7, Absolute Neuts (auto) 2.7,Absolute Lymphs (auto) 2.09, Nucleated RBC % 0, PT 12.3, INR 0.9, APTT 24.3, [id number], Potassium 3.8, Chloride 103, Carbon Dioxide 22.5, Anion Gap 15, BUN 9, Creatinine 0.77, Estim Creat Clear Calc 127.11, Est GFR (MDRD) Non-Af 100, BUN/Creatinine Ratio 11.4, Glucose 105 H, Hemoglobin A1c 5.8 H, Calcium 9.7, Troponin T High Sens 15, TSH 2.720 02/14/25 23:24: Troponin T Hi Sens 2 Hr 15, Vitamin B12 476, Serum Folate 25.70,Ethyl Alcohol < 10.1 02/15/25 01:40: Troponin T Hi Sens 4Hr 17, Triglycerides 177, Cholesterol 284 H,LDL Cholesterol, Calc 201, VLDL Cholesterol 35, HDL Cholesterol 47, Cholesterol/HDL Ratio 5.99 02/15/25 01:55: Urine Opiates Screen NEGATIVE, U Buprenorphine Qual NEGATIVE, UrOxycodone Screen NEGATIVE, Urine Methadone Screen NEGATIVE, Urine Fentanyl Screen NEGATIVE, Ur Barbiturates Screen NEGATIVE, Ur Phencyclidine Scrn NEGATIVE, Ur Amphetamines Screen NEGATIVE, U Benzodiazepines Scrn NEGATIVE, Urine Cocaine Screen NEGATIVE, U Cannabinoids Screen NEGATIVE Imaging Radiology Impression Brain CT 02/14/25 20:26 IMPRESSION: No acute intracranial abnormality. Reading Location: [facility] Head/Neck CTA 02/14/25 20:42 IMPRESSION: Scattered atherosclerotic calcification without hemodynamically significant stenosis. No evidence of acute occlusion or thrombosis. 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 Reading Location: [facility] Echocardiogram 02/14/25 22:56 Interpretation Summary The LV systolic function is normal. EF is 65 %. The left atrium is mildly enlarged. Bubble contrast study is negative for PFO/ASD. Ordering Physician: Sebastian Maya Performed By: Jony Trejo RCS Brain MRI 02/15/25 06:00 IMPRESSION: Mild brain parenchymal atrophy. 1 cm area of acute infarction involving the right thalamus. This does demonstrate some increased signal on the FLAIR sequence. There are additional small scattered foci of increased T2/FLAIR signal in the deep white matter structures of the cerebral hemispheres, which may be on the basis of chronic small-vessel ischemic disease. [place] Alert: 1 cm acute infarct right thalamus. The critical information above was relayed directly by me by telephone to the patient's nurse, Silvia, on 02/15/2025 at 11:56 am with readback verification. Reading [facility] Active Medications Active Medications Active Medications: Current Medications Generic Name Dose Route Start Last Admin Trade Name Freq PRN Reason Stop Dose Admin Acetaminophen 650 mg 02/15/25 00:26 Acetaminophen 325 Mg Tablet PO Q6H PRN PRN Pain 1-10 Or Fever>99.6 Allopurinol 100 mg 02/15/25 08:00 02/15/25 08:20 Allopurinol 100 Mg Tablet PO 100 mg DAILYCM MIRYAM Administration Aspirin 81 mg 02/15/25 08:00 02/15/25 08:20 Aspirin 81 Mg Tab.Chew PO 81 mg DAILYCM MIRYAM Administration Atorvastatin Calcium 40 mg 02/15/25 22:00 Atorvastatin Calcium 40 Mg Tablet PO 2200 MIRYAM Heparin Sodium (Porcine) 5,000 unit 02/15/25 10:00 02/15/25 08:20 Heparin Injection (Vial) 5,000 Unit/Ml Vial SC 5,000 unit Q12 MIRYAM Administration Sodium Chloride 250 mls @ 15 mls/hr 02/15/25 00:30 IV .[id number] PRN Saline Flush Sodium Chloride 250 mls @ 15 mls/hr 02/15/25 00:30 IV .[id number] PRN Additional IVPB Infusion Sodium Chloride 10 - 40 ml 02/15/25 00:30 0.9% Saline Lock 10 Ml Syringe IV UD PRN SALINE FLUSH NIHSS NIHSS Nursing Documentation NIHSS Nursing Documentation: NIHSS: Ischemic Stroke/TIA Start: 02/15/25 00:26 Text: For PCU Patients: NIH and Neuro Check every 4 Status: Active hours, PRN and with change in RN caregiver. Freq: [id number] Protocol: Activity Type Activity Date Activity User E-sign Co-sign Detail Recorded Client Recorded Date Recorded By Document 02/15/25 12:15 EM [id number] 02/15/25 12:49 EM 02/15/25 12:15 NIH Stroke Scale [NIHSS] A score of 0 is normal or asymptomatic . Total possible score is 42. Inpatient: RN or Physician to activate a stroke alert for onset of new stroke symptoms or with NIHSS increase >/= 3 points. Following change in neurological status, NIHSS will be performed per physician order or more frequently PRN. -1a. Level of Consciousness 0 - Alert; keenly responsive -1b. LOC Questions 0 - Answers BOTH questions correctly -1c. LOC Commands 0 - Performs BOTH tasks correctly -2. Best Gaze 0 - Normal -3. Visual 0 - No visual loss -4. Facial Palsy 0 - Normal symmetrical movements -5a. Left Arm 0 - No drift; arm holds 90 ( or 45) degrees for full 10 seconds -5b. Right Arm 0 - No drift; arm holds 90 ( or 45) degrees for full 10 seconds -6a. Left Leg 0 - No drift; leg holds 30- degree position for full 5 seconds -6b. Right Leg 0 - No drift; leg holds 30- degree position for full 5 seconds -7. Limb Ataxia 0 - Absent -8. Sensory 0 - Normal; no sensory loss -9. Best Language 0 - No aphasia; normal -10. Dysarthria 0 - Normal -11. Extinction and Inattention 0 - No abnormality -Total 0 Query Text:A score of 0 is normal or asymptomatic. Total possible score is 42 . ED: Notify Physician for NIHSS increase by > / = 3 points. Inpatient: RN or Physician to activate a stroke alert for NIHSS increase of > / = 3 points. Coma Scale [Assess] -Eye Opening Spontaneous -Motor Obeys Commands -Verbal Oriented [Total] -Coma Scale Total 15 NIHSS 1a. Level of Consciousness: 0 - Alert; keenly responsive 1b. LOC Questions: 0 - Answers BOTH questions correctly 1c. LOC Commands: 0 - Performs BOTH tasks correctly 2. Best Gaze: 0 - Normal 3. Visual: 0 - No visual loss 4. Facial Palsy: 0 - Normal symmetrical movements 5a. Left Arm: 0 - No drift; arm holds 90 (or 45) degrees for full 10 seconds 5b. Right Arm: 0 - No drift; arm holds 90 (or 45) degrees for full 10 seconds 6a. Left Le - No drift; leg holds 30-degree position for full 5 seconds 6b. Right Le - No drift; leg holds 30-degree position for full 5 seconds 7. Limb Ataxia: 0 - Absent 8. Sensory: 0 - Normal; no sensory loss 9. Best Language: 0 - No aphasia; normal 10. Dysarthria: 0 - Normal 11. Extinction and Inattention: 0 - No abnormality Total: 0 02/15/25 1317 Cosigner Signature (if applicable): CC: No Primary Care Physician~ Signed [facility]05-08-2025 Progress note Author Reuben Parker [facility] Note Date/Time February 15, 2025 3:04pm [facility] Medical Records Department [address] [place] [address] Progress Note - Hospitalist 02/15/25829 MR#: [id number] Acct: [id number] Name: STANLEY CORRALES GARETH Rep #:[id number] : 1960 64 From: Reuben Parker DO PCP: Care Physician,No Primary Status :ADM LEANNE Location: [place] [address] Reason for Visit Reason for Visit: Diagnoses Obesity, class 1 (02/14/25) Essential (primary) hypertension (02/14/25) Hypertensive emergency (02/14/25) Paresthesia of skin (02/14/25) Subjective Subjective Feels well, still with left face and finger paresthesias. Objective Data Objective Data Vital Signs: Vital Signs Temp Pulse Resp BP Pulse Ox O2 Del Method 36.8 C 73 17 183/95 H 97 Room Air 02/15/25 08:15 02/15/25 08:15 02/15/25 08:15 02/15/25 08:15 02/15/25 08:15 02/15/25 08:15 Oxygen Delivery Method Room Air Weight: 113.3 kg Body Mass Index (BMI) 33.8 Lab / Micro Data 02/14/25 20:35 02/14/25 20:35 Labs: Laboratory Results - last 24 hr 02/14/25 20:35: WBC 5.6, RBC 4.50 L, Hgb 14.5, Hct 42.2, MCV 93.8, MCH 32.2 H, MCHC 34.4, RDW Std Deviation 43.1, RDW Coeff of Jaguar 12.5, Plt Count 277, MPV 8.4, Immature Gran % (Auto) 0.700, Neut % (Auto) 48.8, Lymph % (Auto) 37.3, [place]% (Auto) 10.4 H, Eos % (Auto) 2.1, Baso % (Auto) 0.7, Absolute Neuts (auto) 2.7,Absolute Lymphs (auto) 2.09, Nucleated RBC % 0, PT 12.3, INR 0.9, APTT 24.3, Sodium 140, Potassium 3.8, Chloride 103, Carbon Dioxide 22.5, Anion Gap 15, BUN 9, Creatinine 0.77, Estim Creat Clear Calc 127.11, Est GFR (MDRD) Non-Af 100, BUN/Creatinine Ratio 11.4, Glucose 105 H, Hemoglobin A1c 5.8 H, Calcium 9.7, Troponin T High Sens 15, TSH 2.720 02/14/25 23:24: Troponin T Hi Sens 2 Hr 15, Vitamin B12 476, Serum Folate 25.70,Ethyl Alcohol < 10.1 02/15/25 01:40: Troponin T Hi Sens 4Hr 17, Triglycerides 177, Cholesterol 284 H,LDL Cholesterol, Calc 201, VLDL Cholesterol 35, HDL Cholesterol 47, Cholesterol/HDL Ratio 5.99 02/15/25 01:55: Urine Opiates Screen NEGATIVE, U Buprenorphine Qual NEGATIVE, UrOxycodone Screen NEGATIVE, Urine Methadone Screen NEGATIVE, Urine Fentanyl Screen NEGATIVE, Ur Barbiturates Screen NEGATIVE, Ur Phencyclidine Scrn NEGATIVE, Ur Amphetamines Screen NEGATIVE, U Benzodiazepines Scrn NEGATIVE, Urine Cocaine Screen NEGATIVE, U Cannabinoids Screen NEGATIVE Radiography Diagnostic Testing: Radiology Impression Brain CT 02/14/25 20:26 IMPRESSION: No acute intracranial abnormality. Reading Location: [facility] Head/Neck CTA 02/14/25 20:42 IMPRESSION: Scattered atherosclerotic calcification without hemodynamically significant stenosis. No evidence of acute occlusion or thrombosis. 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 Reading Location: [facility] Physical Exam Const alert and no apparent distress HEENT head/scalp atraumatic and moist oral mucous membranes Extremity normal to inspection and no clubbing, cyanosis or edema Neuro no focal motor deficits and no sensory deficits noted Sensorium / Orientation: awake and alert Motor Exam: strength 5/5 throughout Assessment & Plan Assessment/Plan (1) Paresthesias: PLAN: left hand and face onset 1200 on 02/14 CVA work up underway. MRI of the brain showed 1 cm area of acute infarct involving the right thalamus. Patient was seen by [facility] teleneurology recommends 21 days of aspirin and clopidogrel and then aspirin thereafter. Goal LDL 70 or less. LDL here was 201. Patient will be on high intensity statin. Patient advised to follow-up with neurology as outpatient as well. (2) Hypertensive emergency: PLAN: permissive HTN for initially and then to continue with antihypertensive. Likely patient had hypertensive level due to maintaining cerebral perfusion pressure after his stroke. PLAN: Plan VTE prophylaxis: SQ heparin. NIHSS NIHSS Nursing Documentation NIHSS Nursing Documentation: NIHSS: Ischemic Stroke/TIA Start: 02/15/25 00:26 Text: For PCU Patients: NIH and Neuro Check every 4 Status: Active hours, PRN and with change in RN caregiver. Freq: [id number] Protocol: Activity Type Activity Date Activity User E-sign Co-sign Detail Recorded Client Recorded Date Recorded By Document 02/15/25 08:16 EM [id number] 02/15/25 08:20 EM 02/15/25 08:16 NIH Stroke Scale [NIHSS] A score of 0 is normal or asymptomatic . Total possible score is 42. Inpatient: RN or Physician to activate a stroke alert for onset of new stroke symptoms or with NIHSS increase >/= 3 points. Following change in neurological status, NIHSS will be performed per physician order or more frequently PRN. -1a. Level of Consciousness 0 - Alert; keenly responsive -1b. LOC Questions 0 - Answers BOTH questions correctly -1c. LOC Commands 0 - Performs BOTH tasks correctly -2. Best Gaze 0 - Normal -3. Visual 0 - No visual loss -4. Facial Palsy 0 - Normal symmetrical movements -5a. Left Arm 0 - No drift; arm holds 90 ( or 45) degrees for full 10 seconds -5b. Right Arm 0 - No drift; arm holds 90 ( or 45) degrees for full 10 seconds -6a. Left Leg 0 - No drift; leg holds 30- degree position for full 5 seconds -6b. Right Leg 0 - No drift; leg holds 30- degree position for full 5 seconds -7. Limb Ataxia 0 - Absent -8. Sensory 0 - Normal; no sensory loss -9. Best Language 0 - No aphasia; normal -10. Dysarthria 0 - Normal -11. Extinction and Inattention 0 - No abnormality -Total 0 Query Text:A score of 0 is normal or asymptomatic. Total possible score is 42 . ED: Notify Physician for NIHSS increase by > / = 3 points. Inpatient: RN or Physician to activate a stroke alert for NIHSS increase of > / = 3 points. Coma Scale [Assess] -Eye Opening Spontaneous -Motor Obeys Commands -Verbal Oriented [Total] -Coma Scale Total 15 02/15/25 1504 <Electronically signed by Reuben Parker DO> Cosigner Signature (if applicable): CC: ~ Signed [facility] Work Phone: 1(717) 247-636805-08-2025 History and physical note Author Sebastain Mills [facility] Note Date/Time February 15, 2025 5:47am [facility] Medical Records Department [address] [place] [address] H&P Exam - Hospitalist 02/14/25 2241 MR#: [id number] Acct: [id number] Name: STANLEY CORRALES GARETH Rep #:[id number] : 1960 64 From: Sebastian Domingo DO PCP: Care Physician,No Primary Status :ADM LEANNE Location: [address] - General General Date of Admission: 02/14/25 Date of Service: 02/14/25 Chief Complaint: Paresthesias of the Left Hand and Face. HPI Narrative STANLEY CORRALES, is a 64 M with a past medical history of essential hypertension; on amlodipine and olmesartan, hyperlipidemia; on rosuvastatin, obesity; with BMI of 34.5 this admission, history of hernia surgery, history of skin cancer affecting the neck and eyelid, history of gout; on allopurinol, OA; with chronic knee pain on etodolac and recent viral URI ~1 week ago; with mild residual nonproductive cough who presents to [facility] ER complaining of paresthesias of the Left hand and face. Mr. Corrales reports his symptoms began at approximately noon today with the abrupt-onset of paresthesias of his Left hand that was about 8 hours prior to his arrival. The patient stated he was in [place] and remembers getting gas and then ~2 hours later he began developing numbness and tingling in the fingertips of his Left hand. He denies associated headache, recent head injury,difficulty with speech, visual changes or focal neurologic weakness so he drove himself home without incident. He admits to lethargy and paresthesias in the Left hand and face. He denies associated fever, chills, changes in vision, runny nose, sore throat, chest pain, palpitations, heart racing, lower extremityedema, shortness of breath, cough, abdominal pain, nausea, vomiting, diarrhea, dysuria, hematuria, arthralgias, headache or rash. 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 [facility] Medical History Gout Knee pain Hypertension Home Medications ?Medication ?Instructions ?Recorded ?Last Taken ?Type rosuvastatin 20 mg tablet (Crestor) 20 mg PO DAILY Unknown History amlodipine 5 mg tablet 5 mg PO QDAY 07/07/24 Unknow n History olmesartan 20 mg tablet 20 mg PO QDAY 07/07/24 Unkno wn History allopurinol 100 mg tablet 100 mg PO Q12H 11/01/24 Unkn own History Allergy/AdvReac Type Severity Reaction Status Date / Time No Known Allergies Allergy Verified 02/14/25 20:24 Surgical History History of hernia surgery Social History Smoking Status: Never smoker alcohol intake: current ROS ROS Narrative Review of Systems: Constitutional: Patient admits to lethargy but he denies fever or chills. Eyes: Patient denies changes in vision or discharge from eyes. ENT: Patient denies runny nose, sore throat or ear pain. Resp: Patient denies shortness of breath or cough. CV: Patient denies chest pain, palpitations, heart racing or lower extremity edema. GI: Patient denies abdominal pain, nausea, vomiting, diarrhea or constipation. : Patient denies dysuria, hematuria or urinary frequency. MSK: Patient denies arthralgias or myalgias. Skin: Patient denies rash, abscess, jaundice. Psych: Patient denies symptoms of uncontrolled depression or anxiety. Neuro: Patient admits to paresthesias in the Left face and hand as per HPI. He denies focal neurologic weakness. Allergy: Patient denies swelling, tongue swelling or urticaria. Hematology: Patient denies easy bleeding or easy bruisability. Endocrinology: Patient denies polyuria, polydipsia, polyphagia or heat/cold intolerance. 14 point ROS otherwise negative except for positives noted above in HPI. Vital Signs Vital Signs Vital Signs: 02/14/25 20:22 02/14/25 20:32 02/14/25 20:32 Temperature 98.0 F Temperature Source Temporal Pulse Rate 81 79 Respiratory Rate 18 16 Blood Pressure 191/89 H 185/93 H Blood Pressure Mean 123 123 Pulse Ox 97 95 Oxygen Delivery Method Room Air Room Air Room Air 02/14/25 20:32 02/14/25 21:05 Temperature Temperature Source Pulse Rate 81 86 Respiratory Rate 16 18 Blood Pressure 185/93 H 167/99 H Blood Pressure Mean 123 121 Pulse Ox 94 98 Oxygen Delivery Method Room Air Room Air Weight Weight: 254 lb 6.615 oz Body Mass Index (BMI) 34.4 Physical Exam Const alert, oriented x3, no apparent distress and healthy appearing Constitutional Narrative: Obese. General Appearance: cooperative HEENT normocephalic, head/scalp atraumatic, hearing grossly normal bilaterally and moist oral mucous membranes Eyes PERRL, EOMs intact bilaterally and conjunctivae normal Neck no lymphadenopathy, supple and no JVD Resp normal respiratory effort, no retractions, no use of accessory muscles and clearto auscultation bilaterally Cardio regular rate and regular rhythm GI normal to inspection, nondistended, normoactive bowel sounds, soft to palpation,non-tender and non-distended Extremity normal to inspection, full ROM and no clubbing, cyanosis or edema Skin Skin Narrative: Patient has evidence of rash, abscess, wounds or jaundice. Neuro oriented x3, CN's II-XII intact bilaterally, moves all extremities and no focal motor deficits Neuro Narrative: Patient has mildly decreased sensation on the Left side of the face compared to the Right with no other focal neurologic deficits noted at this time. Sensorium / Orientation: awake, alert, oriented to person, oriented to place andoriented to time Speech: speech normal Psych affect normal Results Medical Records Data Attestation: I reviewed the patient's medical records Lab / Micro Data Attestation: I reviewed the patient's lab results. 02/14/25 20:35 02/14/25 20:35 Labs: Laboratory Results - last 24 hr 02/14/25 20:35: WBC 5.6, RBC 4.50 L, Hgb 14.5, Hct 42.2, MCV 93.8, MCH 32.2 H, MCHC 34.4, RDW Std Deviation 43.1, RDW Coeff of Jaguar 12.5, Plt Count 277, MPV 8.4, Immature Gran % (Auto) 0.700, Neut % (Auto) 48.8, Lymph % (Auto) 37.3, [place]% (Auto) 10.4 H, Eos % (Auto) 2.1, Baso % (Auto) 0.7, Absolute Neuts (auto) 2.7,Absolute Lymphs (auto) 2.09, Nucleated RBC % 0, PT 12.3, INR 0.9, APTT 24.3, Sodium 140, Potassium 3.8, Chloride 103, Carbon Dioxide 22.5, Anion Gap 15, BUN 9, Creatinine 0.77, Estim Creat Clear Calc 127.11, Est GFR (MDRD) Non-Af 100, BUN/Creatinine Ratio 11.4, Glucose 105 H, Calcium 9.7, Troponin T High Sens 15 Imaging Radiology Impression Brain CT 02/14/25 20:26 IMPRESSION: No acute intracranial abnormality. Reading Location: [facility] Head/Neck CTA 02/14/25 20:42 IMPRESSION: Scattered atherosclerotic calcification without hemodynamically significant stenosis. No evidence of acute occlusion or thrombosis. 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 Reading Location: [facility] Assessment & Plan Assessment/Plan (1) Hypertensive emergency: (2) Paresthesias: (3) Obesity (BMI 30.0-34.9): (4) Essential hypertension: PLAN: Plan 1. Elevated blood pressure of 191/89 mmHg present on admission consistent with suspected Hypertensive Emergency with Paresthesias of Left Face and Hand - Admitto PCU under observation status. Check MRI of brain without contrast to evaluate for possible CVA. Check carotid Doppler to evaluate for stenosis. Check echocardiogram to evaluate LVEF. Continue statin and start aspirin daily. Check TSH, B12, folate, hemoglobin A1c, KATHRINE and UDS to evaluate for other potential factors that may be contributing to his symptoms. 2. Obesity; with BMI of 34.5 this admission complicating #1 - Weight loss will be recommended. Check TSH. This complicates his case and may hamper recovery. 3. Essential hypertension; on amlodipine and olmesartan compounding #1 & #2 - Hold scheduled antihypertensives until CVA definitively ruled out on MRI. 4. Recent viral URI ~1 week ago; with mild residual nonproductive cough - Noted. 5. Hyperlipidemia; on rosuvastatin - Resume statin and check lipid profile. 6. History of hernia surgery - Noted. 7. History of skin cancer affecting the neck and eyelid - Noted for the sake ofcompleteness. 8. History of gout; on allopurinol - Stable with no evidence of acute flare at this time. Maintain allopurinol as previous. 9. OA; with chronic knee pain on etodolac - Stable. 10. DVT prophylaxis - Heparin 5,000U sq BID plus SCD's. Total time: Approximately (but not less than) 70 minutes. Charges/Coding Visit Charges OBSV E&M: 94027 Observ/hosp same date L2 02/15/25 0547 <Electronically signed by Sebastian Maya DO> Cosigner Signature (if applicable): CC: Dr. Sebastian Maya DO; No Primary Care Physician~ Signed [facility] Work Phone: 1(381) 618-275205-08-2025 History and physical note [facility] Medical Records Department [address] [place] [address] [place] [address] H&P Exam - Hospitalist 02/14/25 2241 MR#: [id number] Acct: [id number] Name: STANLEY CORRALES GARETH Rep #:[id number] : 1960 64 From: Sebastian Domingo DO PCP: Care Physician,No Primary Status :ADM LEANNE Location: [place] [address] HPI - General General Date of Admission: 02/14/25 Date of Service: 02/14/25 Chief Complaint: Paresthesias of the Left Hand and Face. HPI Narrative STANLEY CORRALES, is a 64 M with a past medical history of essential hypertension; on amlodipine andolmesartan, hyperlipidemia; on rosuvastatin, obesity; with BMI of 34.5 this admission, history of hernia surgery, history of skin cancer affecting the neck and eyelid, history of gout; on allopurinol, OA; with chronic knee pain on etodolac and recent viral URI ~1 week ago; with mild residual nonproductive cough who presents to [facility] ER complaining of paresthesias of the Left hand and face. Mr. Corrales reports his symptoms began at approximately noon today with the abrupt-onset of paresthesias of his Left hand that was about 8 hours prior to his arrival. The patient stated he was in [place] and remembers getting gas and then ~2 hours later he began developing numbness and tingling in the fingertips of his Left hand. He denies associated headache, recent head injury,difficulty with speech, visual changes or focal neurologic weakness so he drove himself home without incident. He admits to lethargy and paresthesias in the Left hand and face. He denies associated fever, chills,changes in vision, runny nose, sore throat, chest pain, palpitations, heart racing, lower extremityedema, shortness of breath, cough, abdominal pain, nausea, vomiting, diarrhea, dysuria, hematuria, arthralgias, headache or rash. 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 [facility] Medical History Gout Knee pain Hypertension Home Medications ?Medication ?Instructions ?Recorded ?Last Taken ?Type rosuvastatin 20 mg tablet (Crestor) 20 mg PO DAILY Unknown History amlodipine 5 mg tablet 5 mg PO QDAY 07/07/24 Unknow n History olmesartan 20 mg tablet 20 mg PO QDAY 07/07/24 Unkno wn History allopurinol 100 mg tablet 100 mg PO Q12H 11/01/24 Unkn own History Allergy/AdvReac Type Severity Reaction Status Date / Time No Known Allergies Allergy Verified 02/14/25 20:24 Surgical History History of hernia surgery Social History Smoking Status: Never smoker alcohol intake: current ROS ROS Narrative Review of Systems: Constitutional: Patient admits to lethargy but he denies fever or chills. Eyes: Patient denies changes in vision or discharge from eyes. ENT: Patient denies runny nose, sore throat or ear pain. Resp: Patient denies shortness of breath or cough. CV: Patient denies chest pain, palpitations, heart racing or lower extremity edema. GI: Patient denies abdominal pain, nausea, vomiting, diarrhea or constipation. : Patient denies dysuria, hematuria or urinary frequency. MSK: Patient denies arthralgias or myalgias. Skin: Patient denies rash, abscess, jaundice. Psych: Patient denies symptoms of uncontrolled depression or anxiety. Neuro: Patient admits to paresthesias in the Left face and hand as per HPI. He denies focal neurologic weakness. Allergy: Patient denies swelling, tongue swelling or urticaria. Hematology: Patient denies easy bleeding or easy bruisability. Endocrinology: Patient denies polyuria, polydipsia, polyphagia or heat/cold intolerance. 14 point ROS otherwise negative except for positives noted above in HPI. Vital Signs Vital Signs Vital Signs: 02/14/25 20:22 02/14/25 20:32 02/14/25 20:32 Temperature 98.0 F Temperature Source Temporal Pulse Rate 81 79 Respiratory Rate 18 16 Blood Pressure 191/89 H 185/93 H Blood Pressure Mean 123 123 Pulse Ox 97 95 Oxygen Delivery Method Room Air Room Air Room Air 02/14/25 20:32 02/14/25 21:05 Temperature Temperature Source Pulse Rate 81 86 Respiratory Rate 16 18 Blood Pressure 185/93 H 167/99 H Blood Pressure Mean 123 121 Pulse Ox 94 98 Oxygen Delivery Method Room Air Room Air Weight Weight: 254 lb 6.615 oz Body Mass Index (BMI) 34.4 Physical Exam Const alert, oriented x3, no apparent distress and healthy appearing Constitutional Narrative: Obese. General Appearance: cooperative HEENT normocephalic, head/scalp atraumatic, hearing grossly normal bilaterally and moist oral mucous membranes Eyes PERRL, EOMs intact bilaterally and conjunctivae normal Neck no lymphadenopathy, supple and no JVD Resp normal respiratory effort, no retractions, no use of accessory muscles and clearto auscultation bilaterally Cardio regular rate and regular rhythm GI normal to inspection, nondistended, normoactive bowel sounds, soft to palpation,non-tender and non-distended Extremity normal to inspection, full ROM and no clubbing, cyanosis or edema Skin Skin Narrative: Patient has evidence of rash, abscess, wounds or jaundice. Neuro oriented x3, CN's II-XII intact bilaterally, moves all extremities and no focal motor deficits Neuro Narrative: Patient has mildly decreased sensation on the Left side of the face compared to the Right with no other focal neurologic deficits noted at this time. Sensorium / Orientation: awake, alert, oriented to person, oriented to place andoriented to time Speech: speech normal Psych affect normal Results Medical Records Data Attestation: I reviewed the patient's medical records Lab / Micro Data Attestation: I reviewed the patient's lab results. 02/14/25 20:35 02/14/25 20:35 Labs: Laboratory Results - last 24 hr 02/14/25 20:35: WBC 5.6, RBC 4.50 L, Hgb 14.5, Hct 42.2, MCV 93.8, MCH 32.2 H, MCHC 34.4, RDW Std Deviation 43.1, RDW Coeff of Jaguar 12.5, Plt Count 277, MPV 8.4, Immature Gran % (Auto) 0.700, Neut % (Auto) 48.8, Lymph % (Auto) 37.3, [place]% (Auto) 10.4 H, Eos % (Auto) 2.1, Baso % (Auto) 0.7, Absolute Neuts (auto) 2.7,Absolute Lymphs (auto) 2.09, Nucleated RBC % 0, PT 12.3, INR 0.9, APTT 24.3, Ekcuxs204, Potassium 3.8, Chloride 103, Carbon Dioxide 22.5, Anion Gap 15, BUN 9, Creatinine 0.77, Estim Creat Clear Calc 127.11, Est GFR (MDRD) Non-Af 100, BUN/Creatinine Ratio 11.4, Glucose 105 H, Calcium 9.7, Troponin T High Sens 15 Imaging Radiology Impression Brain CT 02/14/25 20:26 IMPRESSION: No acute intracranial abnormality. Reading Location: [facility] Head/Neck CTA 02/14/25 20:42 IMPRESSION: Scattered atherosclerotic calcification without hemodynamically significant stenosis. No evidence of acute occlusion or thrombosis. 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 Reading Location: [facility] Assessment & Plan Assessment/Plan (1) Hypertensive emergency: (2) Paresthesias: (3) Obesity (BMI 30.0-34.9): (4) Essential hypertension: PLAN: Plan 1. Elevated blood pressure of 191/89 mmHg present on admission consistent with suspected Hypertensive Emergency with Paresthesias of Left Face and Hand - Admitto PCU under observation status. Check MRI of brain without contrast to evaluate for possible CVA. Check carotid Doppler to evaluate for stenosis. Check echocardiogram to evaluate LVEF. Continue statin and start aspirin daily. Check TSH, B12, folate, hemoglobin A1c, KATHRINE and UDS to evaluate for other potential factors that may be contributing to his symptoms. 2. Obesity; with BMI of 34.5 this admission complicating #1 - Weight loss will be recommended. Check TSH. This complicates his case and may hamper recovery. 3. Essential hypertension; on amlodipine and olmesartan compounding #1 & #2 - Hold scheduled antihypertensives until CVA definitively ruled out on MRI. 4. Recent viral URI ~1 week ago; with mild residual nonproductive cough - Noted. 5. Hyperlipidemia; on rosuvastatin - Resume statin and check lipid profile. 6. History of hernia surgery - Noted. 7. History of skin cancer affecting the neck and eyelid - Noted for the sake ofcompleteness. 8. History of gout; on allopurinol - Stable with no evidence of acute flare at this time. Maintain allopurinol as previous. 9. OA; with chronic knee pain on etodolac - Stable. 10. DVT prophylaxis - Heparin 5,000U sq BID plus SCD's. Total time: Approximately (but not less than) 70 minutes. Charges/Coding Visit Charges OBSV E&M: 08834 Observ/hosp same date L2 02/15/25 0547 Cosigner Signature (if applicable): CC: Dr. Sebastian Maya DO; No Primary Care Physician~ Signed [facility]05-08-2025 Discharge summary Author Quirino [facility] Note Date/Time February 14, 2025 11:09p [facility] Medical Records Department [address] [place] [address] Emergency Department Summary 02/14/25 MR#: [id number] Acct: [id number] Name: STANLEY CORRALES GARETH Rep #:[id number] : 1960 64 From: Quirino Briggs DO PCP: Care Physician,No Primary Status :REG ER Location: ED HPI History of Present Illness Chief Complaint: Neuro S/Sx Detail of Chief Complaint: Left face and left hand paresthesias Informant: patient Narrative Narrative: Patient presents with left face and left hand paresthesias. Symptoms started approximately noon with numbness and tingling to the left side of his face. Patient was in [place] and remembers getting gas and added an additive to the gas and then put a mint in his mouth but is not sure if that had anything todo with it. 2 hours later he developed some numbness and tingling in his fingertips of his left hand. He denies difficulty with speech or vision. He denies weakness. He actually drove home. Patient states that he developed an upper respiratory infection a week ago and continues to have a slight cough. Denies significant headache. Denies head injuries. He is not anticoagulated. [facility] Medical History Gout Knee pain Hypertension Home Medications ?Medication ?Instructions ?Recorded ?Last Taken ?Type rosuvastatin 20 mg tablet (Crestor) 20 mg PO DAILY Unknown History amlodipine 5 mg tablet 5 mg PO QDAY 07/07/24 Unknow n History olmesartan 20 mg tablet 20 mg PO QDAY 07/07/24 Unkno wn History allopurinol 100 mg tablet 100 mg PO QDAY 11/01/24 Unkn own History etodolac 500 mg tablet 500 mg PO BID #40 tabs 11/01 Unknown Rx Allergy/AdvReac Type Severity Reaction Status Date / Time No Known Allergies Allergy Verified 02/14/25 20:24 Surgical History History of hernia surgery Social History Smoking Status: Never smoker alcohol intake: current ROS ROS ED Review of Systems ROS Unobtainable: other Constitutional Constitutional ED: Reports lethargy; Denies chills, fever(s), sweats or weight loss Eyes Eyes: Denies blurry vision, change in vision or diplopia ENT ENT ED: Denies rhinorrhea or sore throat Cardiovascular Cardiovascular: Denies chest pain, orthopnea or racing heartbeat Respiratory/Chest Respiratory/Chest: Denies cough, dyspnea, dyspnea on exertion, orthopnea or sputum Gastrointestinal Gastrointestinal: Denies abdominal pain, diarrhea, nausea or vomiting Genitourinary Genitourinary ED: Denies dysuria, hematuria or urinary frequency Musculoskeletal Musculoskeletal: Denies arthralgias, back pain, myalgias or neck pain Integumentary Denies abscess, Abrasions or rash Neurologic Neurologic: Reports paresthesias; Denies headache(s) or weakness Psychiatric Psychiatric: Denies anxiety, depression or suicidal thoughts Endocrine Endocrinology: Denies polydipsia, polyphagia or polyuria Hematologic/Lymphatic Hematologic/Lymphatic: Denies easy bleeding, easy bruising or lymphadenopathy Allergic/Immunologic Allergic/Immunologic ED: Denies mouth swelling, tongue swelling or urticaria EXAM Physical Exam Const Vital Signs: 02/14/25 20:22 02/14/25 20:32 02/14/25 20:32 Temperature 98.0 F Temperature Source Temporal Pulse Rate 81 79 Respiratory Rate 18 16 Blood Pressure 191/89 H 185/93 H Blood Pressure Mean 123 123 Pulse Ox 97 95 Oxygen Delivery Method Room Air Room Air Room Air 02/14/25 20:32 02/14/25 21:05 Temperature Temperature Source Pulse Rate 81 86 Respiratory Rate 16 18 Blood Pressure 185/93 H 167/99 H Blood Pressure Mean 123 121 Pulse Ox 94 98 Oxygen Delivery Method Room Air Room Air Positive well nourished and well developed General Appearance ED: well developed and NAD HEENT Reports TM's clear and moist mucous membranes normocephalic and atraumatic; Negative for trauma or tenderness Tympanic Membrane ED: Yes TM's clear Eyes PERRL and EOMs intact bilaterally General Eye ED: Negative for pale conjunctiva or scleral icterus Neck no lymphadenopathy, supple and no JVD General: Negative for tenderness Chest Wall inspection of chest normal and palpation of chest normal Chest: Negative for tenderness Resp normal respiratory effort and clear to auscultation bilaterally Effort and Inspection: Negative for respiratory distress or pain with movement Auscultation: Negative for rhonchi, wheezes or diminished lung sounds Cardio regular rate, regular rhythm, S1 normal heart sound, S2 normal heart sound and no murmurs Peripheral Pulses: pulses 2+ throughout GI normal to inspection, nondistended, normoactive bowel sounds, soft to palpation,non-tender, non-distended and no masses Back/Spine no CVA tenderness and no thoracic nor lumbar tenderness Extremity normal to inspection General Extremety ED: Negative for edema General Extremity: Negative for edema Neuro oriented x3, CN's II-XII intact bilaterally, no sensory deficits noted and gait normal Neuro Narrative: Finger-nose and heel nicole testing within normal limits, negative Romberg, negative pronator drift, fundi benign. NIH stroke scale is a 1 for some slightly decreased in station to the left side of the face compared to the right. No other deficits noted. There was no facial droop. Sensorium / Orientation: awake, alert, oriented to person, oriented to place andoriented to time Motor Exam: strength 5/5 throughout and strength abnormal Psych mental status grossly normal Skin no rashes or lesions noted and no wounds MDM MDM MDM Narrative Medical decision making narrative: Patient presents with paresthesias to the left side of his face and left hand fingertips with symptoms that started at noon today. He is not a thrombolytic candidate given symptoms starting more than 8 hours ago. Will perform stroke workup including CT brain as well as CTA of head and neck. CBC with differential regular 5.6 with hemoglobin 14.5 and platelet count of 277. EKG obtained showed sinus rhythm with ventricular rate of [address] scan of the brain without contrast unremarkable. CTA head and neck unremarkable. CBC with differential showed a white count of 5.6 hemoglobin 14.5 and platelet count of 277. Chemistries unremarkable. Troponin normal at 15. EKG obtained arrival shows sinus rhythm with rate of 75 bpm with LVH. Case will be discussedwith hospitalist to evaluate patient for admission. In the differential would be Robles's palsy versus stroke although given involvement of the left hand and the face need to rule out stroke. Lab Data Attestation: I reviewed the patient's lab results. Labs: Laboratory Results - last 24 hr 02/14/25 20:35 WBC 5.6 RBC 4.50 L Hgb 14.5 Hct 42.2 MCV 93.8 MCH 32.2 H MCHC 34.4 RDW Std Deviation 43.1 RDW Coeff of Jaguar 12.5 Plt Count 277 MPV 8.4 Immature Gran % (Auto) 0.700 Neut % (Auto) 48.8 Lymph % (Auto) 37.3 [place] % (Auto) 10.4 H Eos % (Auto) 2.1 Baso % (Auto) 0.7 Absolute Neuts (auto) 2.7 Absolute Lymphs (auto) 2.09 Nucleated RBC % 0 PT 12.3 INR 0.9 APTT 24.3 Sodium 140 Potassium 3.8 Chloride 103 Carbon Dioxide 22.5 Anion Gap 15 BUN 9 Creatinine 0.77 Estim Creat Clear Calc 127.11 Est GFR (MDRD) Non-Af 100 BUN/Creatinine Ratio 11.4 Glucose 105 H Calcium 9.7 Troponin T High Sens 15 Radiography Diagnostic Testing: Clinical Impression(s) from Imaging Studies Brain CT 02/14/25 20:26 IMPRESSION: No acute intracranial abnormality. Reading [facility] Head/Neck CTA 02/14/25 20:42 IMPRESSION: Scattered atherosclerotic calcification without hemodynamically significant stenosis. No evidence of acute occlusion or thrombosis. 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 Reading Location[facility] EKG Initial EKG: Attestation: I personally reviewed and interpreted this EKG as follows: Comments: Sinus rhythm with ventricular rate 75 bpm with LVH Discharge Plan Dx/Rx/DC Orders Clinical Impression: Paresthesias Disposition Disposition: Acute Care Hospital [facility] What to do if you have Problems For any increased pain, shortness of breath, bleeding, nausea or vomiting, chestpain, or any unexpected problems, contact your Primary Care Provider. Call [facility] ([phone]) or report to the closest Emergency Room. Call 911 if necessary. 02/14/252308 <Electronically signed by Quirino Briggs DO> Cosigner Signature (if applicable): CC: No Primary Care Physician ~ Signed [facility] Work Phone: 1(629) 339-175905-08-2025 Evaluation note* Diagnosis Onset Date Resolution Status Admit Date Hypertensive emergency resolved 2024 10:51pm Essential hypertension inactive 2024 10:51pm Obesity (BMI 30.0-34.9) inactive ay 2024 10:51pm Paresthesias inactive February 14 10:51pm Thalamic stroke inactive February 14, 2025 10:51pm [facility] Work Phone: 1(443) 227-415105-07-2025 Discharge summary [facility] Medical Records Department [address] [place] [address] Emergency Department Summary 02/14/25 MR#: [id number] Acct: [id number] Name: STANLEY CORRALES GARETH Rep #:[id number] : 1960 64 From: Quirino Briggs DO PCP: Care Physician,No Primary Status :REG ER Location: ED HPI History of Present Illness Chief Complaint: Neuro S/Sx Detail of Chief Complaint: Left face and left hand paresthesias Informant: patient Narrative Narrative: Patient presents with left face and left hand paresthesias. Symptoms started approximately noon with numbness and tingling to the left side of his face. Patient was in [place] and remembers getting gas and added an additive to the gas and then put a mint in his mouth but is not sure if that had anything todo with it. 2 hours later he developed some numbness and tingling in his fingertips of his left hand. He denies difficulty with speech or vision. He denies weakness. He actually drove home. Patient states that he developed an upper respiratory infection a week ago and continues to have a slight cough. Denies significant headache. Denies head injuries. He is not anticoagulated. [facility] Medical History Gout Knee pain Hypertension Home Medications ?Medication ?Instructions ?Recorded ?Last Taken ?Type rosuvastatin 20 mg tablet (Crestor) 20 mg PO DAILY Unknown History amlodipine 5 mg tablet 5 mg PO QDAY 07/07/24 Unknow n History olmesartan 20 mg tablet 20 mg PO QDAY 07/07/24 Unkno wn History allopurinol 100 mg tablet 100 mg PO QDAY 11/01/24 Unkn own History etodolac 500 mg tablet 500 mg PO BID #40 tabs 11/01 Unknown Rx Allergy/AdvReac Type Severity Reaction Status Date / Time No Known Allergies Allergy Verified 02/14/25 20:24 Surgical History History of hernia surgery Social History Smoking Status: Never smoker alcohol intake: current ROS ROS ED Review of Systems ROS Unobtainable: other Constitutional Constitutional ED: Reports lethargy; Denies chills, fever(s), sweats or weight loss Eyes Eyes: Denies blurry vision, change in vision or diplopia ENT ENT ED: Denies rhinorrhea or sore throat Cardiovascular Cardiovascular: Denies chest pain, orthopnea or racing heartbeat Respiratory/Chest Respiratory/Chest: Denies cough, dyspnea, dyspnea on exertion, orthopnea or sputum Gastrointestinal Gastrointestinal: Denies abdominal pain, diarrhea, nausea or vomiting Genitourinary Genitourinary ED: Denies dysuria, hematuria or urinary frequency Musculoskeletal Musculoskeletal: Denies arthralgias, back pain, myalgias or neck pain Integumentary Denies abscess, Abrasions or rash Neurologic Neurologic: Reports paresthesias; Denies headache(s) or weakness Psychiatric Psychiatric: Denies anxiety, depression or suicidal thoughts Endocrine Endocrinology: Denies polydipsia, polyphagia or polyuria Hematologic/Lymphatic Hematologic/Lymphatic: Denies easy bleeding, easy bruising or lymphadenopathy Allergic/Immunologic Allergic/Immunologic ED: Denies mouth swelling, tongue swelling or urticaria EXAM Physical Exam Const Vital Signs: 02/14/25 20:22 02/14/25 20:32 02/14/25 20:32 Temperature 98.0 F Temperature Source Temporal Pulse Rate 81 79 Respiratory Rate 18 16 Blood Pressure 191/89 H 185/93 H Blood Pressure Mean 123 123 Pulse Ox 97 95 Oxygen Delivery Method Room Air Room Air Room Air 02/14/25 20:32 02/14/25 21:05 Temperature Temperature Source Pulse Rate 81 86 Respiratory Rate 16 18 Blood Pressure 185/93 H 167/99 H Blood Pressure Mean 123 121 Pulse Ox 94 98 Oxygen Delivery Method Room Air Room Air Positive well nourished and well developed General Appearance ED: well developed and NAD HEENT Reports TM's clear and moist mucous membranes normocephalic and atraumatic; Negative for trauma or tenderness Tympanic Membrane ED: Yes TM's clear Eyes PERRL and EOMs intact bilaterally General Eye ED: Negative for pale conjunctiva or scleral icterus Neck no lymphadenopathy, supple and no JVD General: Negative for tenderness Chest Wall inspection of chest normal and palpation of chest normal Chest: Negative for tenderness Resp normal respiratory effort and clear to auscultation bilaterally Effort and Inspection: Negative for respiratory distress or pain with movement Auscultation: Negative for rhonchi, wheezes or diminished lung sounds Cardio regular rate, regular rhythm, S1 normal heart sound, S2 normal heart sound and no murmurs Peripheral Pulses: pulses 2+ throughout GI normal to inspection, nondistended, normoactive bowel sounds, soft to palpation,non-tender, non-distended and no masses Back/Spine no CVA tenderness and no thoracic nor lumbar tenderness Extremity normal to inspection General Extremety ED: Negative for edema General Extremity: Negative for edema Neuro oriented x3, CN's II-XII intact bilaterally, no sensory deficits noted and gait normal Neuro Narrative: Finger-nose and heel nicole testing within normal limits, negative Romberg, negative pronator drift, fundi benign. NIH stroke scale is a 1 for some slightly decreased in station to the left side of theface compared to the right. No other deficits noted. There was no facial droop. Sensorium / Orientation: awake, alert, oriented to person, oriented to place andoriented to time Motor Exam: strength 5/5 throughout and strength abnormal Psych mental status grossly normal Skin no rashes or lesions noted and no wounds MDM MDM MDM Narrative Medical decision making narrative: Patient presents with paresthesias to the left side of his face and left hand fingertips with symptoms that started at noon today. He is not a thrombolytic candidate given symptoms starting more than8 hours ago. Will perform stroke workup including CT brain as well as CTA of head and neck. CBC with differential regular 5.6 with hemoglobin 14.5 and platelet count of 277. EKG obtained showed sinusrhythm with ventricular rate of [address] scan of the brain without contrast unremarkable. CTA head and neck unremarkable. CBC with differential showed a white count of 5.6 hemoglobin 14.5 and platelet count of 277. Chemistries unremarkable. Troponin normal at 15. EKG obtained arrival shows sinus rhythm with rate of 75 bpm with LVH. Case will be discussedwith hospitalist to evaluate patient for admission. In the differential would be Robles's palsy versus stroke although given involvement of the left hand and the face need to rule out stroke. Lab Data Attestation: I reviewed the patient's lab results. Labs: Laboratory Results - last 24 hr 02/14/25 20:35 WBC 5.6 RBC 4.50 L Hgb 14.5 Hct 42.2 MCV 93.8 MCH 32.2 H MCHC 34.4 RDW Std Deviation 43.1 RDW Coeff of Jaguar 12.5 Plt Count 277 MPV 8.4 Immature Gran % (Auto) 0.700 Neut % (Auto) 48.8 Lymph % (Auto) 37.3 [place] % (Auto) 10.4 H Eos % (Auto) 2.1 Baso % (Auto) 0.7 Absolute Neuts (auto) 2.7 Absolute Lymphs (auto) 2.09 Nucleated RBC % 0 PT 12.3 INR 0.9 APTT 24.3 Sodium 140 Potassium 3.8 Chloride 103 Carbon Dioxide 22.5 Anion Gap 15 BUN 9 Creatinine 0.77 Estim Creat Clear Calc 127.11 Est GFR (MDRD) Non-Af 100 BUN/Creatinine Ratio 11.4 Glucose 105 H Calcium 9.7 Troponin T High Sens 15 Radiography Diagnostic Testing: Clinical Impression(s) from Imaging Studies Brain CT 02/14/25 20:26 IMPRESSION: No acute intracranial abnormality. Reading Location: [facility] Head/Neck CTA 02/14/25 20:42 IMPRESSION: Scattered atherosclerotic calcification without hemodynamically significant stenosis. No evidence of acute occlusion or thrombosis. 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 Reading Location: [facility] EKG Initial EKG: Attestation: I personally reviewed and interpreted this EKG as follows: Comments: Sinus rhythm with ventricular rate 75 bpm with LVH Discharge Plan Dx/Rx/DC Orders Clinical Impression: Paresthesias Disposition Disposition: [facility] What to do if you have Problems For any increased pain, shortness of breath, bleeding, nausea or vomiting, chestpain, or any unexpected problems, contact your Primary Care Provider. Call [facility] ([phone]) or report tothe closest Emergency Room. Call 911 if necessary. 02/14/25 230 Cosigner Signature (if applicable): CC: No Primary Care Physician ~ Signed [facility]05-07-2025 Radiology Diagnostic study note [facility] Imaging Services [address] [place] [address] STROKE CTA Head AND Neck W/Con MR#: [id number] Acct: [id number] Name: STANLEY CORRALES GARETH Rep #: [id number] : 1960 M 64 From: Sindy Chavarria MD PCP: Care Physician,No Primary Status: REG ER Study:STROKE CTA Head AND Neck W/Con Date of Exam: 02/14/25 Exam# [id number] Ordering Dr: Mey Briggs DO PROCEDURE: STROKE CTA HEAD AND NECK W/CON 02/14/2025 REASON FOR EXAM: NEURO DEFICIT, ACUTE, STROKE SUSPECTED TECHNIQUE: CTA imaging of the head and neck from the aortic arch to the skull vertex with out contrast and with intravenous contrast. Multiplanar and multisequence images were obtained. CONTRAST: Omnipaque 350 VOLUME: 100 mL Not Provided Gauge IV One or more dose reduction techniques were used (e.g., Automated exposure control, adjustment of the mA and/or kV according to patient size, use of iterative reconstruction technique). COMPARISON: None FINDINGS: Aortic Arch: Normal size and branching pattern. No significant atherosclerotic plaque. Brachiocephalic and Subclavians: Mild atherosclerotic plaque without significantstenosis. RIGHT Carotid: Right CCA: Unremarkable. Right ICA: Mild calcified and soft plaque. Maximum stenosis (NASCET): <10 % Right ECA: Unremarkable. LEFT Carotid: Left CCA: Unremarkable. Left ICA: Mild calcified and soft plaque. Maximum stenosis (NASCET): <10 % Left ECA: Unremarkable. Vertebrals: Codominant. Arise from the subclavians. Both vertebrals form the basilar. There appearsto be a connection between the left supraclinoid ICA and basilar artery (series 4, image 428), compatible with a persistent trigeminal artery. RIGHT Vertebral: Unremarkable. LEFT Vertebral: Unremarkable. Anatomy: [place] anatomy is normal. Aneurysm or avm: No intracranial aneurysms or large vascular malformations are identified. Anterior cerebral arteries: Unremarkable: Middle cerebral arteries: Mild atherosclerotic calcification of the carotid siphons, without hemodynamically significant stenosis. Basilar artery: Unremarkable. Posterior cerebral arteries: Unremarkable. Other major branches of the posterior circulation: Unremarkable. Major venous structures: Unremarkable. Other findings: Neck: No lymphadenopathy. Lungs: Lung apices are clear. Bones: Mild degenerative changes of the cervical spine. CT/STROKE CTA Head AND Neck W/Con IMPRESSION: Scattered atherosclerotic calcification without hemodynamically significant stenosis. No evidence of acute occlusion or thrombosis. 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 Reading Location: [facility] CC: Dr. Quirino Briggs, DO; No Primary Care Physician ~ Communications Administrator: Signed [facility]05-07-2025 Radiology Diagnostic study note [facility] Imaging Services [address] [place] [address] STROKE Brain/Head without Cont MR#: [id number] Acct: [id number] Name: STANLEY CORRALES GARETH Rep #: [id number] : 1960 M 64 From: Sindy Chavarria MD PCP: Dr. Beto Fofana MD Status: PRE ER Study:STROKE Brain/Head without Cont Date of Exam: 02/14/25 Exam# [id number] Ordering Dr: Mey Briggs DO PROCEDURE: STROKE BRAIN/HEAD WITHOUT CONT 02/14/2025 REASON FOR EXAM: NEURO DEFICIT, ACUTE, STROKE SUSPECTED TECHNIQUE: Head CT without intravenous contrast. Coronal and Sagittal reconstruction serieswere provided. One or more dose reduction techniques were used (e.g., Automated exposure control, adjustment of the mA and/or kV according to patient size, use of iterative reconstruction technique. COMPARISON: None FINDINGS: * ACUTE: No acute infarct or hemorrhage. No mass effect or herniation. * BRAIN PARENCHYMA: Signal intensities are within normal limits for age. * VENTRICLES/EXTRA-AXIAL SPACES: No hydrocephalus or extra-axial fluid collections. * EXTRACRANIAL STRUCTURES: Visualized osseous structures are normal. Soft tissues are normal. Left maxillary sinus mucous retention cyst. Mild paranasal sinus mucosal thickening. CT/STROKE Brain/Head without Cont IMPRESSION: No acute intracranial abnormality. Reading [facility] CC: Dr. Beto Fofana MD; Dr. Quirino Briggs DO ~ Communications Administrator: Signed [facility]05-07-2025 Discharge summary Author Quirino Briggs [facility] Note Date/Time February 14, 2025 11:09p m [facility] Medical Records Department [address] [place] [address] Emergency Department Summary 02/14/25 MR#: [id number] Acct: [id number] Name: STANLEY CORRALES GARETH Rep #:[id number] : 1960 64 From: Quirino Briggs DO PCP: Care Physician,No Primary Status :REG ER Location: ED HPI History of Present Illness Chief Complaint: Neuro S/Sx Detail of Chief Complaint: Left face and left hand paresthesias Informant: patient Narrative Narrative: Patient presents with left face and left hand paresthesias. Symptoms started approximately noon with numbness and tingling to the left side of his face. Patient was in [place] and remembers getting gas and added an additive to the gas and then put a mint in his mouth but is not sure if that had anything todo with it. 2 hours later he developed some numbness and tingling in his fingertips of his left hand. He denies difficulty with speech or vision. He denies weakness. He actually drove home. Patient states that he developed an upper respiratory infection a week ago and continues to have a slight cough. Denies significant headache. Denies head injuries. He is not anticoagulated. [facility] Medical History Gout Knee pain Hypertension Home Medications ?Medication ?Instructions ?Recorded ?Last Taken ?Type rosuvastatin 20 mg tablet (Crestor) 20 mg PO DAILY Unknown History amlodipine 5 mg tablet 5 mg PO QDAY 07/07/24 Unknow n History olmesartan 20 mg tablet 20 mg PO QDAY 07/07/24 Unkno wn History allopurinol 100 mg tablet 100 mg PO QDAY 11/01/24 Unkn own History etodolac 500 mg tablet 500 mg PO BID #40 tabs 11/01 Unknown Rx Allergy/AdvReac Type Severity Reaction Status Date / Time No Known Allergies Allergy Verified 02/14/25 20:24 Surgical History History of hernia surgery Social History Smoking Status: Never smoker alcohol intake: current ROS ROS ED Review of Systems ROS Unobtainable: other Constitutional Constitutional ED: Reports lethargy; Denies chills, fever(s), sweats or weight loss Eyes Eyes: Denies blurry vision, change in vision or diplopia ENT ENT ED: Denies rhinorrhea or sore throat Cardiovascular Cardiovascular: Denies chest pain, orthopnea or racing heartbeat Respiratory/Chest Respiratory/Chest: Denies cough, dyspnea, dyspnea on exertion, orthopnea or sputum Gastrointestinal Gastrointestinal: Denies abdominal pain, diarrhea, nausea or vomiting Genitourinary Genitourinary ED: Denies dysuria, hematuria or urinary frequency Musculoskeletal Musculoskeletal: Denies arthralgias, back pain, myalgias or neck pain Integumentary Denies abscess, Abrasions or rash Neurologic Neurologic: Reports paresthesias; Denies headache(s) or weakness Psychiatric Psychiatric: Denies anxiety, depression or suicidal thoughts Endocrine Endocrinology: Denies polydipsia, polyphagia or polyuria Hematologic/Lymphatic Hematologic/Lymphatic: Denies easy bleeding, easy bruising or lymphadenopathy Allergic/Immunologic Allergic/Immunologic ED: Denies mouth swelling, tongue swelling or urticaria EXAM Physical Exam Const Vital Signs: 02/14/25 20:22 02/14/25 20:32 02/14/25 20:32 Temperature 98.0 F Temperature Source Temporal Pulse Rate 81 79 Respiratory Rate 18 16 Blood Pressure 191/89 H 185/93 H Blood Pressure Mean 123 123 Pulse Ox 97 95 Oxygen Delivery Method Room Air Room Air Room Air 02/14/25 20:32 02/14/25 21:05 Temperature Temperature Source Pulse Rate 81 86 Respiratory Rate 16 18 Blood Pressure 185/93 H 167/99 H Blood Pressure Mean 123 121 Pulse Ox 94 98 Oxygen Delivery Method Room Air Room Air Positive well nourished and well developed General Appearance ED: well developed and NAD HEENT Reports TM's clear and moist mucous membranes normocephalic and atraumatic; Negative for trauma or tenderness Tympanic Membrane ED: Yes TM's clear Eyes PERRL and EOMs intact bilaterally General Eye ED: Negative for pale conjunctiva or scleral icterus Neck no lymphadenopathy, supple and no JVD General: Negative for tenderness Chest Wall inspection of chest normal and palpation of chest normal Chest: Negative for tenderness Resp normal respiratory effort and clear to auscultation bilaterally Effort and Inspection: Negative for respiratory distress or pain with movement Auscultation: Negative for rhonchi, wheezes or diminished lung sounds Cardio regular rate, regular rhythm, S1 normal heart sound, S2 normal heart sound and no murmurs Peripheral Pulses: pulses 2+ throughout GI normal to inspection, nondistended, normoactive bowel sounds, soft to palpation,non-tender, non-distended and no masses Back/Spine no CVA tenderness and no thoracic nor lumbar tenderness Extremity normal to inspection General Extremety ED: Negative for edema General Extremity: Negative for edema Neuro oriented x3, CN's II-XII intact bilaterally, no sensory deficits noted and gait normal Neuro Narrative: Finger-nose and heel nicole testing within normal limits, negative Romberg, negative pronator drift, fundi benign. NIH stroke scale is a 1 for some slightly decreased in station to the left side of the face compared to the right. No other deficits noted. There was no facial droop. Sensorium / Orientation: awake, alert, oriented to person, oriented to place andoriented to time Motor Exam: strength 5/5 throughout and strength abnormal Psych mental status grossly normal Skin no rashes or lesions noted and no wounds MDM MDM MDM Narrative Medical decision making narrative: Patient presents with paresthesias to the left side of his face and left hand fingertips with symptoms that started at noon today. He is not a thrombolytic candidate given symptoms starting more than 8 hours ago. Will perform stroke workup including CT brain as well as CTA of head and neck. CBC with differential regular 5.6 with hemoglobin 14.5 and platelet count of 277. EKG obtained showed sinus rhythm with ventricular rate of [address] scan of the brain without contrast unremarkable. CTA head and neck unremarkable. CBC with differential showed a white count of 5.6 hemoglobin 14.5 and platelet count of 277. Chemistries unremarkable. Troponin normal at 15. EKG obtained arrival shows sinus rhythm with rate of 75 bpm with LVH. Case will be discussedwith hospitalist to evaluate patient for admission. In the differential would be Robles's palsy versus stroke although given involvement of the left hand and the face need to rule out stroke. Lab Data Attestation: I reviewed the patient's lab results. Labs: Laboratory Results - last 24 hr 02/14/25 20:35 WBC 5.6 RBC 4.50 L Hgb 14.5 Hct 42.2 MCV 93.8 MCH 32.2 H MCHC 34.4 RDW Std Deviation 43.1 RDW Coeff of Jaguar 12.5 Plt Count 277 MPV 8.4 Immature Gran % (Auto) 0.700 Neut % (Auto) 48.8 Lymph % (Auto) 37.3 [place] % (Auto) 10.4 H Eos % (Auto) 2.1 Baso % (Auto) 0.7 Absolute Neuts (auto) 2.7 Absolute Lymphs (auto) 2.09 Nucleated RBC % 0 PT 12.3 INR 0.9 APTT 24.3 Sodium 140 Potassium 3.8 Chloride 103 Carbon Dioxide 22.5 Anion Gap 15 BUN 9 Creatinine 0.77 Estim Creat Clear Calc 127.11 Est GFR (MDRD) Non-Af 100 BUN/Creatinine Ratio 11.4 Glucose 105 H Calcium 9.7 Troponin T High Sens 15 Radiography Diagnostic Testing: Clinical Impression(s) from Imaging Studies Brain CT 02/14/25 20:26 IMPRESSION: No acute intracranial abnormality. Reading Location: [facility] Head/Neck CTA 02/14/25 20:42 IMPRESSION: Scattered atherosclerotic calcification without hemodynamically significant stenosis. No evidence of acute occlusion or thrombosis. 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 Reading Location: [facility] EKG Initial EKG: Attestation: I personally reviewed and interpreted this EKG as follows: Comments: Sinus rhythm with ventricular rate 75 bpm with LVH Discharge Plan Dx/Rx/DC Orders Clinical Impression: Paresthesias Disposition Disposition: [facility] What to do if you have Problems For any increased pain, shortness of breath, bleeding, nausea or vomiting, chestpain, or any unexpected problems, contact your Primary Care Provider. Call [facility] ([phone]) or report to the closest Emergency Room. Call 911 if necessary. 02/14/252308 <Electronically signed by Quirino Briggs DO> Cosigner Signature (if applicable): CC: No Primary Care Physician ~ Signed [facility] Work Phone: 1(824) 372-782501-22-2025 Evaluation note* Diagnosis Onset Date Resolution Status Admit Date Osteoarthritis of right knee acute November 01, 2024 8:47am Hypertensive emergency acute 2024 10:51pm Obesity (BMI 30.0-34.9) acute [facility] 2024 10:51pm Paresthesias acute February 14 10:51pm [facility] Work Phone: 1(505) 597-709301-22-2025 Evaluation note* Diagnosis Onset Date Resolution Status Admit Date Osteoarthritis of right knee acute November 01, 2024 8:47am Essential hypertension acute 2024 10:51pm Hypertensive emergency acute 2024 10:51pm Obesity (BMI 30.0-34.9) acute 2024 10:51pm Paresthesias acute February 14 10:51pm Thalamic stroke acute February 14, 2025 10:51pm [facility] Work Phone: 1(993) 388-327907-29-2024 Telephone encounter Note* Telephone Encounter - Ashley Alfaro LPN - 05/08/2024 3:17 PM EDT Patient notified of the following: Per Dr. Fofana, the cologuard was negative and to repeat it in 3 years. Patient verbalized understanding, no questions or concerns voiced, patient thanked me for the call and call ended. Ashley Alfaro LPN May 08, 2024 3:18 PM [facility]07-29-2024 Miscellaneous Notes* Telephone Encounter - Ashley Alfaro LPN - 05/08/2024 3:17 PM EDT Patient notified of the following: Per Dr. Fofana, the cologuard was negative and to repeat it in 3 years. Patient verbalized understanding, no questions or concerns voiced, patient thanked me for the call and call ended. Ashley Alfaro LPN May 08, 2024 3:18 PM * Telephone Encounter - Ashley Alfaro LPN - 05/08/2024 3:14 PM EDT ----- Message from Beto Fofana MD sent at 05/07/2024 8:32 PM EDT ----- Cologuard negative. Recheck in 3 years. documented in this encounterReg[facility]-2024 Telephone encounter Note * Telephone Encounter - Ashley Alfaro LPN - 05/08/2024 3:14 PM EDT ----- Message from Beto Fofana MD sent at 05/07/2024 8:32 PM EDT ----- Cologuard negative. Recheck in 3 years. [facility]06-19-2024 NoteHNO ID: [id number] Author: BETO FOFANA MD Service: ? Author Type: Physician Type: Progress Notes Filed: 03/29/2024 10:45 Note Text: Subjective Stanley Corrales is a 63 year old male. Jeff presents today for his annual wellness visit. Additionally he follows up for multiple medical problems. See list. His chronic medical problems been stable. His blood pressure is well-controlled on his current regimen. Cholesterol is improved with rosuvastatin. He denies any gout episodes. Review of Systems Constitutional: Negative. HENT: Negative. Eyes: Negative. Respiratory: Negative. Cardiovascular: Negative. Gastrointestinal: Negative. Endocrine: Negative. Genitourinary: Negative. Musculoskeletal: Negative. Skin: Negative. Allergic/Immunologic: Negative. Neurological: Negative. Hematological: Negative. Psychiatric/Behavioral: Negative. PAST SURGICAL HISTORY Procedure Laterality Date PAST SURGICAL HISTORY OF Right 2015 Ganglion removed right small finger RPR UMBILICAL HRNA 5 YRS/> REDUCIBLE 03/24/16 medium ventralex PAST MEDICAL HISTORY Diagnosis Date Hypercholesteremia FAMILY HISTORY Problem Relation Age of Onset Diabetes Father Social History Tobacco Use Smoking status: Never Vaping Use Vaping Use: Never used Substance Use Topics Alcohol use: Yes Comment: occasional Beer Drug use: No ALLERGIES No Known Allergies MEDICATIONS: allopurinol (ZYLOPRIM) 100 mg tablet Take 1 tablet by mouth once daily. amLODIPine (NORVASC) 10 mg tablet Take 1 tablet by mouth once daily. olmesartan (BENICAR) 20 mg tablet Take 1 tablet by mouth once daily. rosuvastatin (CRESTOR) 20 mg tablet Take 1 tablet by mouth once daily. Allergies, past surgical history, family history and past medical history were reviewed per this encounter. Medications were reviewed and verified. Objective BP 138/82 (BP Site: Right Arm, BP Position: Sitting, BP Cuff Size: Regular Adult) Pulse 74 Temp 36.4 ?C (97.6 ?F) (Temporal) Resp 18 Ht 182.9 cm (6') Wt 117.5 kg (259 lb) SpO2 98% BMI 35.13 kg/m? Physical Exam Vitals reviewed. Constitutional: Appearance: Normal appearance. HENT: Head: Normocephalic and atraumatic. Nose: Nose normal. Eyes: Extraocular Movements: Extraocular movements intact. Pupils: Pupils are equal, round, and reactive to light. Cardiovascular: Rate and Rhythm: Normal rate and regular rhythm. Pulmonary: Effort: Pulmonary effort is normal. Breath sounds: Normal breath sounds. Abdominal: General: Bowel sounds are normal. Palpations: Abdomen is soft. Musculoskeletal: General: Normal range of motion. Cervical back: Normal range of motion and neck supple. Skin: General: Skin is warm and dry. Capillary Refill: Capillary refill takes less than 2 seconds. Neurological: General: No focal deficit present. Mental Status: He is alert and oriented to person, place, and time. Mental status is at baseline. Psychiatric: Mood and Affect: Mood normal. Behavior: Behavior normal. Assessment and Plan Encounter Diagnosis ICD-10-CM 1. Wellness examination Z00.00 2. Screening for colon cancer Z12.11 COLOGUARD 3. Hypertension, essential I10 COMPREHENSIVE METABOLIC PANEL LIPID PANEL BASIC 4. Pure hypercholesterolemia E78.00 COMPREHENSIVE METABOLIC PANEL LIPID PANEL BASIC 5. Screening for deficiency anemia Z13.0 COMPLETE BLOOD COUNT AND DIFFERENTIAL 6. Screening PSA (prostate specific antigen) Z12.5 PSA/PROSTATE SPECIFIC ANTIGEN SCREENING 7. Gout, unspecified cause, unspecified chronicity, unspecified site M10.9 All open preventative health maintenance topics discussed with patient in detail. This includes risks and benefits regarding vaccines, cancer screening, healthy life style, and diet. Continue present medications. Check labs as above. Monitor blood pressure regularly. Exercise as tolerated. Maintain good diet. Follow-up in 6 months. Beto Fofana [facility]06-19-2024 History of Present illness Narrative* Beto Fofana MD - 03/29/2024 10:42 AM EDT Subjective Stanley Corrales is a 63 year old male. Jeff presents today for his annual wellness visit. Additionally he follows up for multiple medical problems. See list. His chronic medical problems been stable. His blood pressure is well- controlled on his current regimen. Cholesterol is improved with rosuvastatin. He denies any gout episodes. Review of Systems Constitutional: Negative. HENT: Negative. Eyes: Negative. Respiratory: Negative. Cardiovascular: Negative. Gastrointestinal: Negative. Endocrine: Negative. Genitourinary: Negative. Musculoskeletal: Negative. Skin: Negative. Allergic/Immunologic: Negative. Neurological: Negative. Hematological: Negative. Psychiatric/Behavioral: Negative. PAST SURGICAL HISTORY Procedure Laterality Date PAST SURGICAL HISTORY OF Right 2015 Ganglion removed right small finger RPR UMBILICAL HRNA 5 YRS/> REDUCIBLE 03/24/16 medium ventralex PAST MEDICAL HISTORY Diagnosis Date Hypercholesteremia FAMILY HISTORY Problem Relation Age of Onset Diabetes Father Social History Tobacco Use Smoking status: Never Vaping Use Vaping Use: Never used Substance Use Topics Alcohol use: Yes Comment: occasional Beer Drug use: No ALLERGIES No Known Allergies MEDICATIONS: allopurinol (ZYLOPRIM) 100 mg tablet Take 1 tablet by mouth once daily. amLODIPine (NORVASC) 10 mg tablet Take 1 tablet by mouth once daily. olmesartan (BENICAR) 20 mg tablet Take 1 tablet by mouth once daily. rosuvastatin (CRESTOR) 20 mg tablet Take 1 tablet by mouth once daily. Allergies, past surgical history, family history and past medical history were reviewed per this encounter. Medications were reviewed and verified. Objective BP 138/82 (BP Site: Right Arm, BP Position: Sitting, BP Cuff Size: Regular Adult) Pulse 74 Temp36.4 C (97.6 F) (Temporal) Resp 18 Ht 182.9 cm (6') Wt 117.5 kg (259 lb) SpO2 98% BMI 35.13 kg/m Physical Exam Vitals reviewed. Constitutional: Appearance: Normal appearance. HENT: Head: Normocephalic and atraumatic. Nose: Nose normal. Eyes: Extraocular Movements: Extraocular movements intact. Pupils: Pupils are equal, round, and reactive to light. Cardiovascular: Rate and Rhythm: Normal rate and regular rhythm. Pulmonary: Effort: Pulmonary effort is normal. Breath sounds: Normal breath sounds. Abdominal: General: Bowel sounds are normal. Palpations: Abdomen is soft. Musculoskeletal: General: Normal range of motion. Cervical back: Normal range of motion and neck supple. Skin: General: Skin is warm and dry. Capillary Refill: Capillary refill takes less than 2 seconds. Neurological: General: No focal deficit present. Mental Status: He is alert and oriented to person, place, and time. Mental status is at baseline. Psychiatric: Mood and Affect: Mood normal. Behavior: Behavior normal. Assessment and Plan Encounter Diagnosis ICD-10-CM 1. Wellness examination Z00.00 2. Screening for colon cancer Z12.11 COLOGUARD 3. Hypertension, essential I10 COMPREHENSIVE METABOLIC PANEL LIPID PANEL BASIC 4. Pure hypercholesterolemia E78.00 COMPREHENSIVE METABOLIC PANEL LIPID PANEL BASIC 5. Screening for deficiency anemia Z13.0 COMPLETE BLOOD COUNT AND DIFFERENTIAL 6. Screening PSA (prostate specific antigen) Z12.5 PSA/PROSTATE SPECIFIC ANTIGEN SCREENING 7. Gout, unspecified cause, unspecified chronicity, unspecified site M10.9 All open preventative health maintenance topics discussed with patient in detail. This includes risks and benefits regarding vaccines, cancer screening, healthy life style, and diet. Continue present medications. Check labs as above. Monitor blood pressure regularly. Exercise as tolerated. Maintain good diet. Follow-up in 6 months. Beto Fofana MD * Yeimy Lopes LPN - 03/29/2024 10:10 AM EDT [facility] Hepatitis C Screening declined HIV Screening declined DTaP,Tdap,Td Vaccine(1 - Tdap) declined Shingrix Vaccine(1 of 2) declined RSV Vaccine(1 - 1-dose 60+ series) declined Colorectal Cancer Screening cologuard Covid-19 Vaccine() declined Diabetes Screening Patient has not been in office since 2020 Patient did not take any medication this morning Yeimy Lopes LPN March 29, 2024 10:05 AM documented in this encounterReg[facility]06-19-2024 NoteHNO ID: [id number] Author: YEIMY LOPES LPN Service: ? Author Type: LICENSED NURSE Type: Progress Notes Filed: 03/29/2024 10:45 Note Text: [facility] [employer]INTENANCE Hepatitis C Screening declined HIV Screening declined DTaP,Tdap,Td Vaccine(1 - Tdap) declined Shingrix Vaccine(1 of 2) declined RSV Vaccine(1 - 1-dose 60+ series) declined Colorectal Cancer Screening cologuard Covid-19 Vaccine() declined Diabetes Screening Patient has not been in office since 2020 Patient did not take any medication this morning Yeimy Lpoes LPN March 29, 2024 10:05 [facility]11-28-2022 Miscellaneous Notes* Telephone Encounter - Yeimy Lopes LPN - 09/07/2022 11:40 AM EST Refused patient needs appointment documented in this encounterRegency Hospital [facility]10-03-2022 Miscellaneous Notes* Telephone Encounter - Rhonda Childress LPN - 07/13/2022 2:34 PM EDT Pharmacy SSN [employer] message requesting the following refill. Requested Prescriptions Pending Prescriptions Disp Refills olmesartan (BENICAR) 20 mg tablet [Pharmacy Med Name: OLMESARTAN MEDOXOMIL TABS 20MG] 90 tablet 3 Sig: TAKE 1 TABLET DAILY Patient last appointment: Visit date not found Patient Phone numbers: [phone] (home) Request is for script(s) to be escript to mail order [facility]. Rhonda Childress LPN documented in this encounterRegency Hospital Cleveland EastDischarge summary Author Reuben Parker [facility] Note Date/Time February 15, 2025 3:10pm [facility] Medical Records Department [address] [place] [address] Discharge Summary 02/15/25 1504 MR#: [id number] Acct: [id number] Name: CORRALESSTANLEY GARETH Rep #:[id number] : 1960 64 From: Reuben Parker DO PCP: Care Physician,No Primary Status :ADM LEANNE Location: [place] [address] Providers Date of Admission: 02/14/25 Primary Care Physician: No Primary Care Phys Consultations 02/15/25 00:26 Consult: Tele-Neurology Routine Consulting Provider: [facility] Reason for Consult: Acute Ischemic Stroke/TIA EMERGENT Consult: No MD Notified: Yes Date Notified: 02/15/25 Time Notified: 01:46 Method of Notification: Answering Service Method of Consult:: Telemedicine Nursing Unit Staff Notify [facility] of Tele-Neurology Consult: Yes Reason For Visit: LEFT FACE AND HAND PARATHEISAS, Diagnosis Discharge Diagnosis (1) Thalamic stroke: Status: Acute Code(s): I63.81 - Other cerebral infarction due to occlusion or stenosis of small artery Plan: left hand and face onset 1200 on 02/14 CVA work up underway. MRI of the brain showed 1 cm area of acute infarct involving the right thalamus. Patient was seen by [facility] tel[facility]rology recommends 21 days of aspirin and clopidogrel and then aspirin thereafter. Goal LDL 70 or less. LDL here was 201. Patient will be on high intensity statin. Patient advised to follow-up with neurology as outpatient as well. (2) Hypertensive emergency: Status: Acute Code(s): I16.1 - Hypertensive emergency Plan: permissive HTN for initially and then to continue with antihypertensive. Likelypatient had hypertensive level due to maintaining cerebral perfusion pressure after his stroke. Plan VTE prophylaxis: SQ heparin. Medications at Discharge Home Medications amlodipine 5 mg tablet 5 mg PO QDAY 07/07/24 olmesartan 20 mg tablet 20 mg PO QDAY 07/07/24 allopurinol 100 mg tablet 100 mg PO Q12H 11/01/24 aspirin 81 mg chewable tablet 81 mg PO DAILYCM #0 tabs 02/15/25 atorvastatin 80 mg tablet 80 mg PO QHS #30 tabs 02/15/25 clopidogrel 75 mg tablet 75 mg PO DAILY #21 tabs 02/15/25 Weight / BMI Weight Weight: 113.3 kg Body Mass Index (BMI) 33.8 ABG / Lab / Microbiology Data 02/14/25 20:35 02/14/25 20:35 Laboratory: Laboratory Results - last 24 hr 02/14/25 20:35: WBC 5.6, RBC 4.50 L, Hgb 14.5, Hct 42.2, MCV 93.8, MCH 32.2 H, MCHC 34.4, RDW Std Deviation 43.1, RDW Coeff of Jaguar 12.5, Plt Count 277, MPV 8.4, Immature Gran % (Auto) 0.700, Neut % (Auto) 48.8, Lymph % (Auto) 37.3, [place]% (Auto) 10.4 H, Eos % (Auto) 2.1, Baso % (Auto) 0.7, Absolute Neuts (auto) 2.7,Absolute Lymphs (auto) 2.09, Nucleated RBC % 0, PT 12.3, INR 0.9, APTT 24.3, Sodium 140, Potassium 3.8, Chloride 103, Carbon Dioxide 22.5, Anion Gap 15, BUN 9, Creatinine 0.77, Estim Creat Clear Calc 127.11, Est GFR (MDRD) Non-Af 100, BUN/Creatinine Ratio 11.4, Glucose 105 H, Hemoglobin A1c 5.8 H, Calcium 9.7, Troponin T High Sens 15, TSH 2.720 02/14/25 23:24: Troponin T Hi Sens 2 Hr 15, Vitamin B12 476, Serum Folate 25.70,Ethyl Alcohol < 10.1 02/15/25 01:40: Troponin T Hi Sens 4Hr 17, Triglycerides 177, Cholesterol 284 H,LDL Cholesterol, Calc 201, VLDL Cholesterol 35, HDL Cholesterol 47, Cholesterol/HDL Ratio 5.99 02/15/25 01:55: Urine Opiates Screen NEGATIVE, U Buprenorphine Qual NEGATIVE, UrOxycodone Screen NEGATIVE, Urine Methadone Screen NEGATIVE, Urine Fentanyl Screen NEGATIVE, Ur Barbiturates Screen NEGATIVE, Ur Phencyclidine Scrn NEGATIVE, Ur Amphetamines Screen NEGATIVE, U Benzodiazepines Scrn NEGATIVE, Urine Cocaine Screen NEGATIVE, U Cannabinoids Screen NEGATIVE Radiography Diagnostic Testing: Radiology Impression Brain CT 02/14/25 20:26 IMPRESSION: No acute intracranial abnormality. Reading [facility] Head/Neck CTA 02/14/25 20:42 IMPRESSION: Scattered atherosclerotic calcification without hemodynamically significant stenosis. No evidence of acute occlusion or thrombosis. 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 Reading Location[facility] Carotid Duplex 02/14/25 22:56 Interpretation Summary Mild (<50%) stenosis right extracranial internal carotid. Mild (<50%) stenosis left extracranial internal carotid. Patent and antegrade vertebrals bilaterally. Ordering Physician: Sebastian Maya Referring Physician: N/A Performed By: Jesse Gonzales, RVT Echocardiogram 02/14/25 22:56 Interpretation Summary The LV systolic function is normal. EF is 65 %. The left atrium is mildly enlarged. Bubble contrast study is negative for PFO/ASD. Ordering Physician: Sebastian Maya Performed By: Jony Trejo [facility] Brain MRI 02/15/25 06:00 IMPRESSION: Mild brain parenchymal atrophy. 1 cm area of acute infarction involving the right thalamus. This does demonstrate some increased signal on the FLAIR sequence. There are additional small scattered foci of increased T2/FLAIR signal in the deep white matter structures of the cerebral hemispheres, which may be on the basis of chronic small-vessel ischemic disease. [place] Alert: 1 cm acute infarct right thalamus. The critical information above was relayed directly by me by telephone to the patient's nurse, Silvia, on 02/15/2025 at 11:56 am with readback verification. Reading Location: [facility] Instructions Discharge Diet: Low fat / Low cholesterol DC O2, CPAP, BIPAP Needs Home O2 Discharge instructions: No Meaningful Use Info Meaningful Use Meaningful Use Diagnoses (Choose all that apply): Ischemic CVA CVA Therapy Assessed for PT,OT and/or ST?: Yes Ischemic Stroke Antithrombotic order at d/c?: Yes Dx of Atrial fib/flutter?: No Anticoagulant at discharge?: No Reason anticoagulant not ordered: Treatment not Indicated Statin Dosing Therapy Reference: STATIN DOSE THERAPY REFERENCE: * Patients > 75 years receive moderate or high dose statin therapy. * Patients 75 years or YOUNGER should receive HIGH intensity statin dose unless contraindicated. You will be required to document reason for non-treatment if statin daily dose does not meet guidelines. HIGH DOSE STATIN THERAPY DAILY Atorvastatin > than or = to 40 mg Rosuvastatin > than or = to 20 mg Amlodipine + Atorvastatin > than or = to 2.5/40 mg Ezetimibe + Simvastatin 10/80 mg Simvastatin 80mg Statins at discharge?: Yes If patient is 75 or younger, pt will be discharged on HIGH intensity statin.: Yes Primary Dx Acute Ischemic CVA?: Yes IV thrombolytic ordered during stay?: No Reason IV thrombolytic not ordered: Treatment not Indicated Discharge Plan Admission Admit Date/Time: 02/14/25 22:51 Primary Reason for Your Visit: stroke Attending Provider: Reuben Parker Primary Care Provider: Care Physician,No Primary Consulting Providers: Teto Navas; Berna Jean; Erin Prabhakar; Suly North; Carolyn Rai; Kike Nguyen; Nadine Dumas; William Menon; Jono Hope; Preston Lubin; Vivian Ortega; Anshu Fernandez; Christa Ye; Abraham Sánchez; Angelica Christine; Gustavo Gomez; Oswaldo Campos; David Johnson; Lizzy Erazo; Tia Zarco;Sebastian Maya Instructions Patient Instructions: Stroke Brain Body Effects, Stroke: Taking Medicines Additional Instructions / Restrictions: Follow-up with neurology as outpatient. May follow-up with Dr. Bonds here or another neurologist. [facility] [phone]. [facility] [place] [phone]. [facility] [place] [phone]. [facility] [phone]. [facility] [place] [phone]. He will be on aspirin and Plavix for 21 days. After 21 days then you will just take aspirin. Discharge Orders/Prescriptions Prescriptions: New aspirin 81 mg Tablet,Chewable 81 mg PO DAILYCM Qty: 0 0RF clopidogrel 75 mg tablet 75 mg PO DAILY Qty: 21 0RF atorvastatin 80 mg tablet 80 mg PO QHS Qty: 30 0RF Continued olmesartan 20 mg tablet 20 mg PO QDAY amlodipine 5 mg tablet 5 mg PO QDAY allopurinol 100 mg tablet 100 mg PO Q12H Discontinued rosuvastatin [Crestor] 20 MG tablet 20 mg PO DAILY Referrals / Follow Up: [facility] [Provider Group] - Within 1 Month Beto Fofana MD [Non-Staff] - Within 2 Weeks Care Physician,No Primary [Primary Care Provider] - Disposition Disposition (needs filled in before D/C Order can be placed): Home, Self Care Charges/Coding Visit Charges Inpatient E&M: 07942 Disch Hosp >30min 02/15/25 1511 <Electronically signed by Reuben Parker DO> Cosigner Signature (if applicable): CC: Dr. Reuben Parker DO; No Primary Care Physician~ Signed [facility] Work Phone: Evaluation note* Diagnosis Wellness examination- Primary Screening for colon cancer Special screening for malignant neoplasms, colon Hypertension, essential Unspecified essential hypertension Pure hypercholesterolemia Screening for deficiency anemia Screening for other and unspecified deficiency anemia Screening PSA (prostate specific antigen) Special screening for malignant neoplasm of prostate Gout, unspecified cause, unspecified chronicity, unspecified site documented in this encounter [facility] for referral (narrative)No reason for referral information availableWAdena Regional [facility] Work Phone: Summary Purpose Family History No Family History Records FoundNo Family History Records FoundNo Family History Records Found Advance Directives No Advanced Directives Records Found Advance Directive Response Recorded Date/ Time Do you have a Healthcare Power of Luster Applicator? No February 14, 2025 8:32pm Advance Directives Yes June 1:53pm Advance Directive Response Recorded Date/ Time Do you have a Healthcare Pow er of Luster Applicator? Yes February 15, 2025 12:29am Name of Medical Power of Luster Applicator Jimmie Phelpsbobby (Angela aguiar) February 15, 2025 12:29am Advance Directives Yes June 1:53pm Chief Complaint and Reason for Visit Chief Complaint Admit Date LEFT KNEE November 01, 2024 8 :47am 2 November 01, 2024 9 :03am LEFT FACE AND HAND PARATHEISAS, February 14, 2025 10:51pm Reason for Visit Admit Date Osteoarthritis of right knee October 8:47am Hypertensive emergency February 14, 2025 10: 51pm Obesity (BMI 30.0-34.9) February 14, 2025 10 :51pm Paresthesias February 14, 2025 10:51p m Chief Complaint Admit Date LEFT KNEE November 01, 2024 8 :47am RM 2 November 01, 2024 9 :03am LEFT FACE AND HAND PARATHEISAS, February 14, 2025 10:51pm LEFT FACE AND HAND PARATHEISAS, February 15, 2025 8:30am Reason for Visit Admit Date Osteoarthritis of right knee October 8:47am Essential hypertension February 14, 2025 10: 51pm Hypertensive emergency February 14, 2025 10: 51pm Obesity (BMI 30.0-34.9) February 14, 2025 10 :51pm Paresthesias February 14, 2025 10:51p m Thalamic stroke February 14, 2025 10:51p m Chief Complaint Admit Date LEFT FACE AND HAND PARATHEISAS, February 14, 2025 10:51pm LEFT FACE AND HAND PARATHEISAS, February 15, 2025 8:30am ATAXIA PT HAS RX March 09, 2025 8:30a m Reason for Visit Admit Date Hypertensive emergency February 14, 2025 10: 51pm Essential hypertension February 14, 2025 10: 51pm Obesity (BMI 30.0-34.9) February 14, 2025 10 :51pm Paresthesias February 14, 2025 10:51p m Thalamic stroke February 14, 2025 10:51p m Additional Source Comments (unrecognized sect ion and content) No Status Records FoundNo Status Records FoundNo Status Records Found INFORMATION SOURCE (unrecogn ized section and content) DATE CREATED AUTHOR 08/22/2020 Margoth mitchell [place] DATE CREATED AUTHOR AUTHOR'S ORGANIZ ATION 05/10/2024 Margoth Jerome [facility] DATE CREATED AUTHOR AUTHOR'S ORGANIZ ATION 03/31/2025 [facility] Source Comments (unrecognize d section and content) In the event this informatio n is protected by the Federal Confidentiality of Alcohol and Drug Abuse Patient Records regulations: The Federal rules restrict any use of the information to criminally investigate or prosecute any alcohol or drug abuse patient.[facility] the event this information is protected by the Federal Confidentiality of Alcohol and Drug Abuse Patient Records regulations: The Federal rules restrict any use of the information to criminally investigate or prosecute any alcohol or drug abuse patient.[facility] the event this information is protected by the Federal Confidentiality of Alcohol and Drug Abuse Patient Records regulations: The Federal rules restrict any use of the information to criminally investigate or prosecute any alcohol or drug abuse patient.[facility] the event this information is protected by the Federal Confidentiality of Alcohol and Drug Abuse Patient Records regulations: The Federal rules restrict any use of the information to criminally investigate or prosecute any alcohol or drug abuse patient.[facility] the event this information is protected by the Federal Confidentiality of Alcohol and Drug Abuse Patient Records regulations: The Federal rules restrict any use of the information to criminally investigate or prosecute any alcohol or drug abuse patient.[facility] Reason for Visit (unrecogniz ed section and content) Reason Comments Refill Request Reason Comments [facility] Teams (unrecognized sec tion and content) Team Status: Active Member Role Status Dates SAL Barbosa Primary Care Provider Active Team Status: Inactive Member Role Status Dates Dr. Quirino Briggs DO Emergency Provider Active S tart: February 14, 2025 End: February 15, 2025 No Primary Care Physician Primary Care Provider Active Start: February 14, 2025 End: February 15, 2025 Dr. Sebastian Maya DO Admit Provider Active Start: February 14, 2025 End: February 15, 2025 Dr. Sebastian Maya DO Other Provider Active Start: February 14, 2025 End: February 15, 2025 Teto Navas MD Other Provider Active Start: 2024 End: February 15, 2025 Dr. Berna Jean MD Other Provider Active Start: February 14, 2025 End: February 15, 2025 Erin Prabhakar MD Other Provider Active Start : February 14, 2025 End: February 15, 2025 Dr. Suly North DO Other Provider Active St art: February 14, 2025 End: February 15, 2025 Dr. Carolyn Rai MD Other Provider Active Start: February 14, 2025 End: February 15, 2025 Dr. Kike Nguyen MD Other Provider Active Sta rt: February 14, 2025 End: February 15, 2025 Dr. Nadine Dumas MD Other Provider Active Start : February 14, 2025 End: February 15, 2025 Dr. William Menon MD Other Provider Active Start: February 14, 2025 End: February 15, 2025 Dr. Jono Hope MD Other Provider Active Start : February 14, 2025 End: February 15, 2025 Dr. Preston Lubin MD Other Provider Active Sta rt: February 14, 2025 End: February 15, 2025 Vivian Ortega MD Other Provider Active Start : February 14, 2025 End: February 15, 2025 Dr. Anshu Fernandez MD Other Provider Active St art: February 14, 2025 End: February 15, 2025 Dr. Christa Ye MD Other Provider Active Start : February 14, 2025 End: February 15, 2025 Dr. Abraham Sánchez MD Other Provider Active Sta rt: February 14, 2025 End: February 15, 2025 Dr. Angelica Chrsitine MD Other Provider Active Start: February 14, 2025 End: February 15, 2025 Dr. Gustavo Gomez MD Other Provider Active St art: February 14, 2025 End: February 15, 2025 Dr. Oswaldo Campos MD Other Provider Active Star t: February 14, 2025 End: February 15, 2025 Dr. David Johnson MD Other Provider Active St art: February 14, 2025 End: February 15, 2025 Dr. Lizzy Erazo MD Other Provider Active Start: February 14, 2025 End: February 15, 2025 Tia Zarco MD Other Provider Active Start: February 14, 2025 End: February 15, 2025 Dr. Reuben Parker DO Attending Provider Active Start: February 14, 2025 End: February 15, 2025 Team Status: Active Member Role Status Dates Dr. Quirino Briggs DO Emergency Provider Active S tart: February 15, 2025 No Primary Care Physician Primary Care Provider Active Start: February 15, 2025 Dr. Sebastian Maya DO Admit Provider Active Start: February 15, 2025 Dr. Sebastian Maya DO Other Provider Active Start: February 15, 2025 Teto Navas MD Other Provider Active Start: 2024 Dr. Berna Jean MD Other Provider Active Start: February 15, 2025 Erin Prabhakar MD Other Provider Active Start : February 15, 2025 Dr. Suly North DO Other Provider Active St art: February 15, 2025 Dr. Carolyn Rai MD Other Provider Active Start: February 15, 2025 Dr. Kike Nguyen MD Other Provider Active Sta rt: February 15, 2025 Dr. Nadine Dumas MD Other Provider Active Start : February 15, 2025 Dr. William Menon MD Other Provider Active Start: February 15, 2025 Dr. Jono Hope MD Other Provider Active Start : February 15, 2025 Dr. Preston Lubin MD Other Provider Active Sta rt: February 15, 2025 Vivian Ortega MD Other Provider Active Start : February 15, 2025 Dr. Anshu Fernandez MD Other Provider Active St art: February 15, 2025 Dr. Christa Ye MD Other Provider Active Start : February 15, 2025 Dr. Abraham Sánchez MD Other Provider Active Sta rt: February 15, 2025 Dr. Angelica Christine MD Other Provider Active Start: February 15, 2025 Dr. Gustavo Gomez MD Other Provider Active St art: February 15, 2025 Dr. Oswaldo Campos MD Other Provider Active Star t: February 15, 2025 Dr. David Johnson MD Other Provider Active St art: February 15, 2025 Dr. Lizzy Erazo MD Other Provider Active Start: February 15, 2025 Tia Zarco MD Other Provider Active Start: February 15, 2025 Dr. Reuben Parker DO Attending Provider Active Start: February 15, 2025 Dr. Reuben Parker DO Other Provider Active Star t: February 15, 2025 Team Status: Active Member Role Status Dates No Primary Care Physician Primary Care Provider Active Start: February 15, 2025 Dr. Pascual Bustos MD Attending Provider Active Start: February 15, 2025 Team Status: Active Member Role Status Dates No Primary Care Physician Primary Care Provider Active Start: February 15, 2025 Dr. Reuben Jackson MD Attending Provider Active S tart: February 15, 2025 Dr. Sebastian Maya DO Referring Provider Active Start: February 15, 2025 Team Status: Active Member Role Status Dates No Primary Care Physician Primary Care Provider Active Start: March 09, 2025 Dr. Reuben Parker DO Attending Provider Active Start: March 09, 2025 Dr. Reuben Parker DO Referring Provider Active Start: March 09, 2025 Team Status: Inactive Member Role Status Dates SAL Barbosa Primary Care Provider Active Start: March 21, 2025 End: March 21, 2025 SAL Barbosa Attending Provider Active Start: March 21, 2025 End: March 21, 2025 Qa Specialist Relationship Specialty Start Date End Date Pcp, No PCP - General 04/25/22 11/10/22 Qa Specialist Relationship Specialty Start Date End Date Pcp, No PCP - General 04/25/22 11/10/22 Qa Specialist Relationship Specialty Start Date End Date Beto Fofana MD [address] [place] [address] PCP - General Family Medicine 05/08/24 Team Status: Active Member Role Status Dates No Primary Care Physician Primary Care Provider Active Team Status: Inactive Member Role Status Dates Dr. Beto Fofana MD Primary Care Provider Active Start: November 01, 2024 End: November 01, 2024 Dr. Beto Fofana MD Referring Provider Active Start: November 01, 2024 End: November 01, 2024 Dr. Wade Pineda DO Attending Provider Active Start: November 01, 2024 End: November 01, 2024 Team Status: Inactive Member Role Status Dates Dr. Beto Fofana MD Primary Care Provider Active Start: November 01, 2024 End: November 01, 2024 Dr. Cortes Jacobo MD Attending Provider Active S tart: November 01, 2024 End: November 01, 2024 Team Status: Active Member Role Status Dates Dr. Quirino Briggs DO Emergency Provider Active S tart: February 14, 2025 No Primary Care Physician Primary Care Provider Active Start: February 14, 2025 Dr. Sebastian Maya DO Admit Provider Active Start: February 14, 2025 Dr. Sebastian Maya DO Attending Provider Active Start: February 14, 2025 Team Status: Active Member Role Status Dates No Primary Care Physician Primary Care Provider Active Start: February 15, 2025 Dr. Reuben Jackson MD Attending Provider Active S tart: February 15, 2025 Goals (unrecognized section and content) Goals may be documented in a n alternate section FOR RECORDS PERTAINING TO PATIENTS WHO ARE OR HAVE BEEN ENROLLED IN A CHEMICAL DEPENDENCY/SUBSTANCEABUSE PROGRAM, SOME INFORMATION MAY BE OMITTED. This clinical summary was aggregated from multiple sources. Caution should be exercised in using it in the provision of clinical care. This summary normalizes information from multiple sources, and as a consequence, information in this document may materially change the coding, format and clinical context of patient data. In addition, data may be omitted in some cases. CLINICAL DECISIONS SHOULD BE BASED ON THE PRIMARY CLINICAL RECORDS. [facility]. provides no warranty or guarantee of the accuracy or completeness of information in this document.
== END | disposition home or self-care (01) ==
LOC: VSLAB 10:34
PROVIDERS: PCP Nurse Practitioner Family; Visit Provider Nurse Practitioner Family
DX: E11.9 Type 2 diabetes mellitus without complications (principal)
CPT/HCPCS: 36415; 80053; 83036

== ENCOUNTER → 2025-09-25 | Outpatient (CLI) | payer OTHER, SELFPAY ==
[2025-09-25 12:21] LABS: Hematocrit 39.9 % (40-54); Hemoglobin 13.3 g/dL (13.0-16.5); Immature Granulocytes Count 0.030 X10^3/uL (0.0-0.0); Mean Corp Hgb Conc 33.3 g/dL (32-36); Mean Corpuscular Volume 95.7 fL (80-94); Mean Platelet Vol. 8.9 fl (6.2-12.0); NRBC Flagged by Analyzer 0 % (0-5); Platelet Count 238 K/mm3 (150-450); RBC Distribution Width CV 12.5 % (11.6-14.6); RBC Distribution Width SD 43.6 fl (35.1-43.9); Red Blood Count 4.17 M/mm3 (4.6-6.2); White Blood Count 4.8 K/mm3 (4.4-11.0)
[2025-09-25 12:38] LABS: AST(SGOT) 31 U/L (<=37); Alanine Aminotransfer ALT/SGPT 34 U/L (<=46); Albumin, Serum 4.5 g/dL (3.4-4.8); Alkaline Phosphatase 74 U/L (40-129); Anion Gap 10 (5-15); BUN 16 mg/dL (4-19); BUN/Creat Ratio 20.7 RATIO (10-20); Calcium,Total 10.2 mg/dL (7.6-11.0); Carbon Dioxide 26.1 mmol/L (21.0-32.0); Chloride 103 mmol/L (98-108); Cholesterol 204 mg/dL (<=200); Globulin 2.4 g/dL (2.2-4.2); Glucose 128 mg/dL (70-99); Low Density Lipoprotein Calc. 124 mg/dL; PSA,Total- Diagnostic 2.27 ng/mL (0.00-4.00); Potassium 4.7 mmol/L (3.3-5.1); Triglycerides 106 mg/dL; Uric Acid 5.8 mg/dL (3.5-7.2); Very Low Density Lipoprotein 21 mg/dL (5-40); cholesterol:hdl ratio screen 3.35
== END | disposition home or self-care (01) ==
LOC: VSLAB 10:26
PROVIDERS: PCP Nurse Practitioner Family; Referring Provider Nurse Practitioner Family; Visit Provider Nurse Practitioner Family
DX: E78.5 Hyperlipidemia, unspecified (principal); Z86.73 Personal history of transient ischemic attack (TIA), and cerebral infarction without residual deficits; M10.9 Gout, unspecified; Z12.5 Encounter for screening for malignant neoplasm of prostate; R73.03 Prediabetes
CPT/HCPCS: 36415; 80053; 80061; 83036; 84153; 84550; 85025